=== PATIENT | female | born 1965 | race Caucasian/White ===

== ENCOUNTER 2017-05-16 19:11 | Emergency (ER) | payer BC ==
[2017-05-16 19:27] VITALS: BP 111/61
[2017-05-16] MEDS ORDERED: SUCRALFATE 1 GM TABLET PO ONE (19:41)
[2017-05-16] MEDS ORDERED: FAMOTIDINE 20 MG TABLET PO ONE (19:41)
[2017-05-16] MEDS ORDERED: ONDANSETRON 4 MG TAB.RAPDIS PO ONE (19:42)
--- NOTE | 2017-05-16 19:45 | ER Document Report ---
ED General - General Chief Complaint: Chest Pain Stated Complaint: CHEST PAIN Time Seen by Provider: 05/16/17 19:34 Notes: Patient is a 51-year-old female that comes emergency department with chief complaint of pain that started about 30 minutes prior to arrival while she was cooking in the kitchen (she points to her epigastric area close (, she states it felt a little better after belching but she is still very uncomfortable. She denies nausea or vomiting. She denies shortness of breath, trauma, cough, fever. Past medical history of gastric bypass, she states that for arthritis she takes Percocet, gabapentin, and BC powder daily, she took both BC powder and to 81 mg aspirins prior to arrival. She has had a cholecystectomy, has an IUD in place, she also takes risperidone. She denies smoking, alcohol, personal or family history of ND. TRAVEL OUTSIDE OF THE [place] IN LAST 30 DAYS: No - Related Data Allergies/Adverse Reactions: No Known Allergies Allergy (Verified 08/07/16 17:41) Past Medical History - General Information source: Patient - Social History Smoking Status: Never Smoker Chew tobacco use (# tins/day): No Frequency of alcohol use: None Drug Abuse: None Lives with: Family Family History: CAD, Hypertension - Past Medical History Cardiac Medical History: Reports: Hx Hypertension Pulmonary Medical History: Reports: Hx Asthma - Patient has bronchitis with reactive airways disease, Hx Bronchitis - w/ RAD Denies: Hx Tuberculosis Neurological Medical History: Denies: Hx Seizures Musculoskeltal Medical History: Reports Hx Arthritis - bilateral knees Psychiatric Medical History: Reports: Hx Bipolar Disorder, Hx Depression Past Surgical History: Reports: Hx Abdominal Surgery - gastric bypass, Hx Cholecystectomy, Hx Gastric Bypass Surgery - 1994, Hx Tonsillectomy, Hx Tubal Ligation. Denies: Hx Hysterectomy - Immunizations Immunizations up to date: Yes Hx Diphtheria, Pertussis, Tetanus Vaccination: Yes Review of Systems - Review of Systems Constitutional: No symptoms reported EENT: No symptoms reported Cardiovascular: See HPI Respiratory: No symptoms reported Gastrointestinal: See HPI Genitourinary: No symptoms reported Female Genitourinary: No symptoms reported Musculoskeletal: No symptoms reported Skin: No symptoms reported Hematologic/Lymphatic: No symptoms reported Neurological/Psychological: No symptoms reported Physical Exam - Vital signs Vitals: Temp Pulse Resp BP Pulse Ox 98 F 82 16 111/61 95 05/16/17 19:15 07/23/17 19:15 05/16/17 19:15 05/16/17 19:15 05/16/17 19:15 Interpretation: Normal - General General appearance: Appears well, Alert In distress: None - HEENT Head: Normocephalic, Atraumatic Eyes: Normal Conjunctiva: Normal Extraocular movements intact: Yes Eyelashes: Normal Pupils: PERRL Nasal: Normal Mouth/Lips: Normal Mucous membranes: Normal Pharynx: Normal Neck: Normal - Respiratory Respiratory status: No respiratory distress Chest status: Nontender Breath sounds: Normal. No: Decreased air movement, Wheezing Chest palpation: Normal - Cardiovascular Rhythm: Regular. No: Tachycardia Heart sounds: Normal auscultation, S1 appreciated, S2 appreciated Murmur: No - Abdominal Inspection: Normal Distension: No distension Bowel sounds: Normal Tenderness: Nontender. No: Tender, Florian's sign Organomegaly: No organomegaly - Back Back: Normal, Nontender. No: Tender, CVA tenderness - Extremities General upper extremity: Normal inspection, Nontender, Normal color, Normal ROM , Normal temperature General lower extremity: Normal inspection, Nontender, Normal color, Normal ROM , Normal temperature, Normal weight bearing. No: Missy's sign - Neurological Neuro grossly intact: Yes Cognition: Normal Orientation: AAOx4 Bruning Coma Scale Eye Opening: Spontaneous Александр Coma Scale Verbal: Oriented Александр Coma Scale Motor: Obeys Commands Александр Coma Scale Total: 15 Speech: Normal Motor strength normal: LUE, RUE, LLE, RLE Sensory: Normal - Psychological Associated symptoms: Normal affect, Normal mood - Skin Skin Temperature: Warm Skin Moisture: Dry Skin Color: Normal Course - Re-evaluation Re-evalutation: Patient well-appearing, EKG shows sinus rhythm with no T-wave or ST segment changes in consecutive leads, no ischemic abnormalities noted. Chest x-ray unremarkable, CBC, chemistry, lipase unremarkable, cardiac enzymes negative. On examination patient does have epigastric tenderness initially and is complaining of epigastric pain. Patient has already had a cholecystectomy, has had bypass surgery, takes daily PC powders. Clinical picture is consistent with gastritis/esophagitis. 05/16/17 21:00 Patient symptom free after Pepcid, Carafate, Zofran. She states she feels great and she is ready to leave. I discussed repeat cardiac enzyme to complete workup, she declined second cardiac enzyme. Because of clinical picture of gastrointestinal source I feel that this is appropriate. She urinated and this was not collected and I still do not have a test. Patient has an IUD in place, has last LMP within 2 weeks, declines staying for this as well. Patient states she feels great, she is ready to leave, she will follow up with primary care, and she understand return precautions which we discussed. Family also voices agreement and satisfaction. - Vital Signs Vital signs: Temp Pulse Resp BP Pulse Ox 98 F 82 16 111/61 95 05/16/17 19:15 05/16/17 19:15 05/16/17 19:15 05/16/17 19:15 05/16/17 19:15 - Laboratory Result Diagrams: 05/16/17 19:20 05/16/17 19:20 Laboratory results interpreted by me: 05/16/17 05/16/17 19:20 19:20 Hgb 11.9 L Hct 35.6 L RDW 16.9 H Chloride 109 H Direct Bilirubin 0.5 H Albumin 3.3 L Discharge - Discharge Clinical Impression: Epigastric pain Condition: Stable Disposition: HOME, SELF-CARE Additional Instructions: Your workup at this time does not show any concerning abnormalities Your examination and symptoms are consistent with esophageal/gastric source of your symptoms, please take the medications as prescribed, stop the BC powder, avoid NSAIDs such as ibuprofen, naproxen, aspirin. You can take Tylenol based medications, your pain medications, Tums, Rolaids if needed. Follow-up with your primary care for additional management. In the emergency department immediately if you worsen including vomiting blood, black stools, severe pain, or any other new or concerning symptoms. Prescriptions: Omeprazole 40 mg PO DAILY #60 capsule. Sucralfate [Carafate 1 gm Tablet] 1 gm PO QID #40 tablet Referrals: CARLIE YOUNGBLOOD NP [Primary Care Provider] - Follow up as needed
[2017-05-16 19:52] LABS: ABSOLUTE BASOPHILS # (AUTO) 0.1 10^3/uL (0.0-0.2); ABSOLUTE EOSINOPHILS # (AUTO) 0.3 10^3/uL (0.0-0.6); ABSOLUTE MONOCYTES (AUTO) 0.6 10^3/uL (0.1-1.4); ABSOLUTE NEUT (AUTO) 3.4 10^3/uL (1.7-8.2); EOSINOPHILS % (AUTO) 5.7 % (0-6); HEMATOCRIT 35.6 % (36.0-47.0); HEMOGLOBIN 11.9 g/dL (12.0-15.5); HGB HCT DIFFERENCE 0.1; LYMPHOCYTES % (AUTO) 18.2 % (13-45); MEAN CORPUSCULAR HEMOGLOBIN 28.4 pg (27.0-33.4); MEAN CORPUSCULAR HGB CONC 33.4 g/dL (32.0-36.0); MEAN CORPUSCULAR VOLUME 85 fl (80-97); MONOCYTES % (AUTO) 11.3 % (3-13); RED BLOOD COUNT 4.19 10^6/uL (3.72-5.28); RED CELL DISTRIBUTION WIDTH 16.9 % (11.5-14.0); SEGMENTED NEUTROPHILS % (AUTO) 63.8 % (42-78); WHITE BLOOD COUNT 5.4 10^3/uL (4.0-10.5)
[2017-05-16 20:01] LABS: ALANINE AMINOTRANSFERASE 21 U/L (9-52); ALBUMIN 3.3 g/dL (3.5-5.0); ALKALINE PHOSPHATASE 103 U/L (38-126); ANION GAP 9 (5-19); ASPARTATE AMINO TRANSFERASE 24 U/L (14-36); BILIRUBIN,DIRECT 0.5 mg/dL (0.0-0.4); BILIRUBIN,TOTAL 0.7 mg/dL (0.2-1.3); BLOOD UREA NITROGEN 15 mg/dL (7-20); CALCIUM 8.9 mg/dL (8.4-10.2); CARBON DIOXIDE 22 mmol/L (22-30); CHLORIDE 109 mmol/L (98-107); CREATINE KINASE 62 U/L (30-135); CREATININE RESULT 0.92 mg/dL (0.52-1.25); GLUCOSE 85 mg/dL (75-110); LIPASE 261.7 U/L (23-300); POTASSIUM 4.5 mmol/L (3.6-5.0); SODIUM 140.1 mmol/L (137-145); TOTAL PROTEIN 6.4 g/dL (6.3-8.2)
[2017-05-16 20:18] LABS: CREATINE KINASE MB 0.24 ng/mL (<4.55); TROPONIN I < 0.012 ng/mL
--- NOTE | 2017-05-16 20:22 | RADIOLOGY REPORT (SQ) ---
EXAM DESCRIPTION: CHEST SINGLE VIEW COMPLETED DATE/TIME: 05/16/2017 8:12 pm REASON FOR STUDY: chest pain COMPARISON: July 2016 EXAM PARAMETERS: NUMBER OF VIEWS: One view. TECHNIQUE: Single frontal radiographic view of the chest acquired. RADIATION DOSE: NA LIMITATIONS: None. FINDINGS: LUNGS AND PLEURA: No opacities, masses or pneumothorax. No pleural effusion. MEDIASTINUM AND HILAR STRUCTURES: No masses. Contour normal. HEART AND VASCULAR STRUCTURES: Heart normal in size. Normal vasculature. BONES: No acute findings. HARDWARE: None in the chest. OTHER: No other significant finding. IMPRESSION: NO ACUTE RADIOGRAPHIC FINDING IN THE CHEST. TECHNICAL DOCUMENTATION: JOB ID: [id number]
--- NOTE | 2017-05-17 13:59 | EKG REPORT ---
SEVERITY:- NORMAL ECG - SINUS RHYTHM : Confirmed by: Tracy Leggett MD 17-May-2017 13:58:45
== END 2017-05-16 21:20 | disposition home or self-care (01) ==
LOC: ER 19:11
DX: R10.13 Epigastric pain (principal); R07.9 Chest pain, unspecified; I10 Essential (primary) hypertension; Z97.5 Presence of (intrauterine) contraceptive device; Z90.49 Acquired absence of other specified parts of digestive tract; Z98.84 Bariatric surgery status
CPT/HCPCS: 93005; 99285; 36415; 82553; 82550; 83690; 85025; 80053; 84484; 71010; 93010; S0119

== ENCOUNTER → 2017-05-24 | Outpatient (CLI) | payer BC ==
--- NOTE | 2017-05-24 17:32 | WOMENS IMAGING REPORT ---
EXAM DESCRIPTION: BILAT SCREENING MAMMO W/CAD COMPLETED DATE/TIME: 05/24/2017 3:06 pm REASON FOR STUDY: ROUTINE SCREENING; Z12.31 Z12.31 ENCNTR SCREEN MAMMOGRAM FOR MALIGNANT NEOPLASM O F AHMET COMPARISON: 05/19/2016 and 04/17/2015. TECHNIQUE: Standard craniocaudal and mediolateral oblique views of each breast recorded using digita l acquisition. LIMITATIONS: None. FINDINGS: Findings present which are benign by mammographic criteria. No suspicious masses, calcifi cations or architectural distortion. Pertinent benign findings: Stable benign calcifications. Read with the assistance of CAD. .[facility] - R2 Cenova Version 1.3 .[facility] - R2 Cenova Version 1.3 .[facility] - R2 Cenova Version 2.4 .[facility] - R2 Cenova Version 2.4 .[facility] - R2 Lens Cementer Version 9.2 Benign mammographic findings may include one or more of the following: Smooth masses, popcorn/rim/co arse calcifications, asymmetries, post-procedure changes, and lesions with long-standing stability. IMPRESSION: BENIGN MAMMOGRAPHIC FINDINGS. BIRADS 2 BREAST DENSITY: a. The breasts are almost entirely fatty. BIRAD: 2 BENIGN FINDING(S) RECOMMENDATION: ROUTINE SCREENING COMMENT: The patient has been notified of the results by letter per SA requirements. Additional no tification policies are in place for contacting patient with suspicious or incomplete findings. Quality ID #[id number]: The [employer] recommends an annual screening mammogram for women aged 40 years or over. This facility utilizes a reminder system to ensure that all patients receive reminder letters, and/or direct phone calls for appointments. This includes reminders for routine scr eening mammograms, diagnostic mammograms, or other Breast Imaging Interventions when appropriate. Th is patient will be placed in the appropriate reminder system. The [employer] (ACR) has developed recommendations for screening MRI of the breast s in certain patient populations, to be used in conjunction with mammography. Breast MRI surveillanc e may be appropriate for women with more than 20% lifetime risk of developing breast cancer as deter mined by genetic testing, significant family history of the disease, or history of mantle radiation f or Hodgkins Disease. ACR Practice Guidelines 2008. TECHNICAL DOCUMENTATION: FINDING NUMBER: (1) ASSESSMENT: (1) JOB ID: [id number]- All Rights Reserved
== END ==
LOC: WI 14:45
PROVIDERS: ATTEND Nurse Practitioner Acute Care
DX: Z12.31 Encounter for screening mammogram for malignant neoplasm of breast (principal)
CPT/HCPCS: 77067; G0202

== ENCOUNTER 2017-08-23 05:16 | Emergency (ER) | payer BC ==
--- NOTE | 2017-08-23 05:42 | ER Document Report ---
ED Medical Screen (RME) - General Chief Complaint: GI Bleeding Stated Complaint: RECTAL BLEEDING Mode of Arrival: Ambulatory Information source: Patient Notes: Patient presents stating that she noticed bright red bleeding after having a bowel movement yesterday around 4 PM. Patient states that when going to the bathroom to urinate she would wipe in the rectal area and noticed bleeding. Patient does complain of some mild rectal tenderness. Patient does report a previous history of hemorrhoids. Patient does state that she has a history of anemia following gastric bypass surgery. Patient does take BC powders twice a day to treat arthritic pain. Patient denies any abdominal tenderness, fever, nausea, or vomiting. hx: Anemia, bipolar, arthritis, gastric bypass, tubal ligation, cholecystectomy , tonsillectomy TRAVEL OUTSIDE OF THE [place] IN LAST 30 DAYS: No - Related Data Allergies/Adverse Reactions: No Known Allergies Allergy (Verified 08/07/16 17:41) Past Medical History - Past Medical History Cardiac Medical History: Reports: Hx Hypertension Pulmonary Medical History: Reports: Hx Asthma - Patient has bronchitis with reactive airways disease, Hx Bronchitis - w/ RAD Denies: Hx Tuberculosis Neurological Medical History: Denies: Hx Seizures Renal/ Medical History: Denies: Hx Peritoneal Dialysis Musculoskeltal Medical History: Reports Hx Arthritis - bilateral knees Psychiatric Medical History: Reports: Hx Bipolar Disorder, Hx Depression Past Surgical History: Reports: Hx Abdominal Surgery - gastric bypass, Hx Cholecystectomy, Hx Gastric Bypass Surgery - 1994, Hx Tonsillectomy, Hx Tubal Ligation. Denies: Hx Hysterectomy - Immunizations Immunizations up to date: Yes Hx Diphtheria, Pertussis, Tetanus Vaccination: Yes Physical Exam - Vital signs Vitals: Temp Pulse Resp BP Pulse Ox 98.5 F 82 18 123/79 96 08/23/17 05:23 08/23/17 05:23 08/23/17 05:23 08/23/17 05:23 08/23/17 05:23 - Rectal Tenderness: Yes Stool: See lab result Hemorrhoids: External Course - Vital Signs Vital signs: Temp Pulse Resp BP Pulse Ox 98.5 F 82 18 123/79 96 08/23/17 05:23 08/23/17 05:23 08/23/17 05:23 08/23/17 05:23 08/23/17 05:23
[2017-08-23 06:01] LABS: ABSOLUTE BASOPHILS # (AUTO) 0.1 10^3/uL (0.0-0.2); ABSOLUTE EOSINOPHILS # (AUTO) 0.3 10^3/uL (0.0-0.6); ABSOLUTE LYMPHOCYTES (AUTO) 1.1 10^3/uL (0.5-4.7); ABSOLUTE MONOCYTES (AUTO) 0.7 10^3/uL (0.1-1.4); ABSOLUTE NEUT (AUTO) 3.5 10^3/uL (1.7-8.2); EOSINOPHILS % (AUTO) 5.1 % (0-6); HEMATOCRIT 35.9 % (36.0-47.0); HEMOGLOBIN 11.7 g/dL (12.0-15.5); HGB HCT DIFFERENCE -0.8; MEAN CORPUSCULAR HGB CONC 32.7 g/dL (32.0-36.0); MEAN CORPUSCULAR VOLUME 86 fl (80-97); MONOCYTES % (AUTO) 11.7 % (3-13); RED CELL DISTRIBUTION WIDTH 14.4 % (11.5-14.0); SEGMENTED NEUTROPHILS % (AUTO) 63.2 % (42-78); WHITE BLOOD COUNT 5.6 10^3/uL (4.0-10.5)
--- NOTE | 2017-08-23 06:09 | ER Document Report ---
HPI - HPI Patient complains to provider of: Rectal bleeding Onset: Yesterday Onset/Duration: Sudden Quality of pain: Achy Pain Level: 1 Context: Patient presents stating that she noticed bright red bleeding after having a bowel movement yesterday around 4 PM. Patient states that when going to the bathroom to urinate she would wipe in the rectal area and noticed bleeding. Patient does complain of some mild rectal tenderness. Patient does report a previous history of hemorrhoids. Patient does state that she has a history of anemia following gastric bypass surgery. Patient does take BC powders twice a day to treat arthritic pain. Patient denies any abdominal tenderness, fever, nausea, or vomiting. Associated Symptoms: Other - Rectal bleeding. denies: Fever, Nausea, Vomiting Exacerbated by: Denies Relieved by: Denies Similar symptoms previously: No Recently seen / treated by doctor: No - ROS ROS below otherwise negative: Yes Systems Reviewed and Negative: Yes All other systems reviewed and negative - CONSTITUTIONAL Constitutional: DENIES: Fever, Chills - NEURO Neurology: DENIES: Weakness - CARDIOVASCULAR Cardiovascular: DENIES: Chest pain - RESPIRATORY Respiratory: DENIES: Trouble Breathing, Coughing - GASTROINTESTINAL Gastrointestinal: REPORTS: Black / Bloody Stools. DENIES: Abdominal Pain, Nausea, Patient vomiting, Constipation - URINARY Urinary: DENIES: Dysuria - REPRODUCTIVE Reproductive: DENIES: : - MUSCULOSKELETAL Musculoskeletal: DENIES: Back Pain - DERM Skin Color: Normal Skin Problems: None Past Medical History - General Information source: Patient - Social History Smoking Status: Never Smoker Lives with: Family Family History: CAD, Hypertension Patient has suicidal ideation: No Patient has homicidal ideation: No - Past Medical History Cardiac Medical History: Reports: Other - Anemia Pulmonary Medical History: Reports: Hx Asthma - Patient has bronchitis with reactive airways disease, Hx Bronchitis - w/ RAD Denies: Hx Tuberculosis Neurological Medical History: Denies: Hx Seizures Renal/ Medical History: Denies: Hx Peritoneal Dialysis Musculoskeltal Medical History: Reports Hx Arthritis - bilateral knees Psychiatric Medical History: Reports: Hx Bipolar Disorder, Hx Depression Past Surgical History: Reports: Hx Abdominal Surgery - gastric bypass, Hx Cholecystectomy, Hx Gastric Bypass Surgery - 1994, Hx Tonsillectomy, Hx Tubal Ligation. Denies: Hx Hysterectomy - Immunizations Immunizations up to date: Yes Hx Diphtheria, Pertussis, Tetanus Vaccination: Yes Vertical Provider Document - CONSTITUTIONAL Agree With Documented VS: Yes Exam Limitations: No Limitations General Appearance: WD/WN, No Apparent Distress - INFECTION CONTROL TRAVEL OUTSIDE OF THE [place] IN LAST 30 DAYS: No - HEENT HEENT: Atraumatic, Normocephalic - NECK Neck: Normal Inspection, Supple - RESPIRATORY Respiratory: Breath Sounds Normal, No Respiratory Distress O2 Sat by Pulse Oximetry: 96 - CARDIOVASCULAR Cardiovascular: Regular Rate, Regular Rhythm, No Murmur - GI/ABDOMEN Gastrointestinal: Abdomen Soft, Abdomen Non-Tender, No Organomegaly, Normal Bowel Sounds Notes: Patient with small external hemorrhoid that is draining small amount of blood with palpation. No obvious blood noted in stool after digital rectal exam. - BACK Back: Normal Inspection - MUSCULOSKELETAL/EXTREMETIES Musculoskeletal/Extremeties: BETSEY MAST - NEURO Level of Consciousness: Awake, Alert, Appropriate Motor/Sensory: No Motor Deficit - DERM Integumentary: Warm, Dry Course - Re-evaluation Re-evalutation: 08/23/17 06:08 Patient with draining external hemorrhoid that is small. No concern for thrombosed hemorrhoid, no concern for perirectal abscess. 08/23/17 06:[address] Holloway who agrees with plan of care - Vital Signs Vital signs: Temp Pulse Resp BP Pulse Ox 98.5 F 82 18 123/79 96 08/23/17 05:23 08/23/17 05:23 08/23/17 05:23 08/23/17 05:23 08/23/17 05:23 - Laboratory Result Diagrams: 08/23/17 05:52 08/23/17 05:52 Laboratory results interpreted by me: 08/23/17 05:52 Hgb 11.7 L Hct 35.9 L RDW 14.4 H 08/23/17 06:21 Labs- Entire Visit 08/23/17 08/23/17 08/23/17 05:38 05:52 05:52 WBC 5.6 RBC 4.20 Hgb 11.7 L Hct 35.9 L MCV 86 MCH 28.0 MCHC 32.7 RDW 14.4 H Plt Count 213 Seg Neutrophils % 63.2 Lymphocytes % 19.0 Monocytes % 11.7 Eosinophils % 5.1 Basophils % 1.0 Absolute Neutrophils 3.5 Absolute Lymphocytes 1.1 Absolute Monocytes 0.7 Absolute Eosinophils 0.3 Absolute Basophils 0.1 PT 13.2 INR 0.94 APTT 30.3 Sodium Potassium Chloride Carbon Dioxide Anion Gap BUN Creatinine Est GFR ( Amer) Est GFR (Non-Af Amer) Glucose Calcium Total Bilirubin Direct Bilirubin Indirect Bilirubin Neonat Total Bilirubin AST ALT Alkaline Phosphatase Total Protein Albumin Stool Occult Blood NEGATIVE 08/23/17 05:52 WBC RBC Hgb Hct MCV MCH MCHC RDW Plt Count Seg Neutrophils % Lymphocytes % Monocytes % Eosinophils % Basophils % Absolute Neutrophils Absolute Lymphocytes Absolute Monocytes Absolute Eosinophils Absolute Basophils PT INR APTT Sodium 142.7 Potassium 3.9 Chloride 108 H Carbon Dioxide 23 Anion Gap 12 BUN 17 Creatinine 0.94 Est GFR ( Amer) > 60 Est GFR (Non-Af Amer) > 60 Glucose 89 Calcium 9.0 Total Bilirubin 0.6 Direct Bilirubin 0.3 Indirect Bilirubin Not Reportable Neonat Total Bilirubin Not Reportable AST 24 ALT 34 Alkaline Phosphatase 123 Total Protein 6.2 L Albumin 3.4 L Stool Occult Blood Discharge - Discharge Clinical Impression: External hemorrhoid Condition: Stable Disposition: HOME, SELF-CARE Instructions: HC Hemorrhoid Cream ([facility]), Hemorrhoids ([facility]) Additional Instructions: Return immediately for any new or worsening symptoms Followup with your primary care provider, call tomorrow to make a followup appointment You should not be taking BC powders regularly, consult with your primary doctor regarding arthritis pain management Follow-up with a piano regulator inspector for any continued problems involving rectal hemorrhoid you may use tucks pads over the counter as directed Prescriptions: Hydrocortisone Acetate [Anusol Hc 25 Mg Supp.Rect] 25 mg ID BID PRN #[id number] supp.rect PRN Reason: Referrals: CARLIE YOUNGBLOOD NP [Primary Care Provider] - Follow up as needed DANYA TELLO MD [ACTIVE STAFF] - Follow up as needed PORSCHE MARTINEZ MD [ACTIVE STAFF] - Follow up as needed
[2017-08-23 06:10] LABS: PROTHROMBIN TIME 13.2 SEC (11.4-15.4)
[2017-08-23 06:11] LABS: PARTIAL THROMBOPLASTIN TIME 30.3 SEC (23.5-35.8)
[2017-08-23 06:19] LABS: ALANINE AMINOTRANSFERASE 34 U/L (9-52); ALBUMIN 3.4 g/dL (3.5-5.0); ALKALINE PHOSPHATASE 123 U/L (38-126); ANION GAP 12 (5-19); ASPARTATE AMINO TRANSFERASE 24 U/L (14-36); BILIRUBIN,DIRECT 0.3 mg/dL (0.0-0.4); BILIRUBIN,TOTAL 0.6 mg/dL (0.2-1.3); BLOOD UREA NITROGEN 17 mg/dL (7-20); CARBON DIOXIDE 23 mmol/L (22-30); CHLORIDE 108 mmol/L (98-107); CREATININE RESULT 0.94 mg/dL (0.52-1.25); GLUCOSE 89 mg/dL (75-110); POTASSIUM 3.9 mmol/L (3.6-5.0); SODIUM 142.7 mmol/L (137-145); TOTAL PROTEIN 6.2 g/dL (6.3-8.2)
[2017-08-23 06:37] VITALS: BP 111/66
== END 2017-08-23 06:35 | disposition home or self-care (01) ==
LOC: ER 05:16
DX: K64.4 Residual hemorrhoidal skin tags (principal); Z98.84 Bariatric surgery status; Z90.49 Acquired absence of other specified parts of digestive tract; Z98.51 Tubal ligation status
CPT/HCPCS: 36415; 80053; 82272; 85025; 85610; 85730; 99282

== ENCOUNTER 2017-09-10 21:21 | Emergency (ER) | payer BC, OTHER ==
--- NOTE | 2017-09-10 23:37 | ER Document Report ---
HPI - HPI Patient complains to provider of: Right knee pain Onset: Yesterday Onset/Duration: Gradual Quality of pain: Achy Pain Level: 5 Context: Patient complains of chronic arthritis of right knee. Patient states that her knees been giving out on her yesterday. Patient states she felt like it dislocates and then goes back into proper alignment. Patient states she has been seen by orthopedics for this and has been told that she will need a knee replacement but they are waiting until she is at least 57 years old. Patient denies any fall or new injury. Associated Symptoms: Other - Right knee pain Exacerbated by: Standing, Movement, Walking Relieved by: Denies Similar symptoms previously: Yes Recently seen / treated by doctor: No - ROS ROS below otherwise negative: Yes Systems Reviewed and Negative: Yes All other systems reviewed and negative - NEURO Neurology: DENIES: Weakness - REPRODUCTIVE Reproductive: DENIES: : - MUSCULOSKELETAL Musculoskeletal: REPORTS: Extremity pain, Swelling - DERM Skin Color: Normal Skin Problems: None Past Medical History - General Information source: Patient - Social History Smoking Status: Never Smoker Frequency of alcohol use: None Drug Abuse: None Occupation: [employer] Lives with: Family Family History: CAD, Hypertension - Past Medical History Cardiac Medical History: Reports: Hx Hypertension Pulmonary Medical History: Reports: Hx Asthma - Patient has bronchitis with reactive airways disease, Hx Bronchitis - w/ RAD Denies: Hx Tuberculosis Neurological Medical History: Denies: Hx Seizures Renal/ Medical History: Denies: Hx Peritoneal Dialysis Musculoskeltal Medical History: Reports Hx Arthritis - bilateral knees Psychiatric Medical History: Reports: Hx Bipolar Disorder, Hx Depression Past Surgical History: Reports: Hx Abdominal Surgery - gastric bypass, Hx Cholecystectomy, Hx Gastric Bypass Surgery - 1994, Hx Tonsillectomy, Hx Tubal Ligation. Denies: Hx Hysterectomy - Immunizations Immunizations up to date: Yes Hx Diphtheria, Pertussis, Tetanus Vaccination: Yes Vertical Provider Document - CONSTITUTIONAL Agree With Documented VS: Yes Exam Limitations: No Limitations General Appearance: WD/WN, No Apparent Distress, Obese - morbidly - INFECTION CONTROL TRAVEL OUTSIDE OF THE [place] IN LAST 30 DAYS: No - HEENT HEENT: Atraumatic - NECK Neck: Normal Inspection - RESPIRATORY Respiratory: No Respiratory Distress O2 Sat by Pulse Oximetry: 97 - CARDIOVASCULAR Pulses: Normal: Dorsalis pedis - BACK Back: Normal Inspection - MUSCULOSKELETAL/EXTREMETIES Musculoskeletal/Extremeties: MAEW, Tender - Right knee joint tenderness to medial compartment, no effusion, no laxity with varus or valgus maneuvers. No concern for dislocation - NEURO Level of Consciousness: Awake, Alert, Appropriate Motor/Sensory: No Motor Deficit - DERM Integumentary: Warm, Dry, No Rash Course - Vital Signs Vital signs: Temp Pulse Resp BP Pulse Ox 97.4 F 95 16 109/72 97 09/10/17 21:34 09/10/17 21:34 09/10/17 21:34 09/10/17 21:34 09/10/17 21:34 Procedures - Immobilization Right Knee Pre-Proc Neuro Vasc Exam: Normal Immobilizer type: Knee immobilizer Performed by: PCT Post-Proc Neuro Vasc Exam: Normal Alignment checked and good: Yes Discharge - Discharge Clinical Impression: Hx of chronic arthritis Right knee pain Qualifiers: Chronicity: unspecified Qualified Code(s): M25.561 - Pain in right knee Condition: Stable Disposition: HOME, SELF-CARE Instructions: Arthritis ([facility]), Use of Crutches ([facility]), Ice & Elevation ([facility]), Sprained Knee ([facility]) Additional Instructions: Return immediately for any new or worsening symptoms Followup with your primary care provider, call tomorrow to make a followup appointment Follow-up with orthopedic doctor for further evaluation, call Wednesday for an appointment Forms: Return to Work Referrals: CARLIE YOUNGBLOOD NP [Primary Care Provider] - Follow up as needed [facility] [Provider Group] - Follow up as needed
[2017-09-10 23:48] VITALS: BP 117/76
== END 2017-09-11 00:02 | disposition home or self-care (01) ==
LOC: ER 21:21
DX: M17.9 Osteoarthritis of knee, unspecified (principal); M25.561 Pain in right knee
CPT/HCPCS: 99283; L1830

== ENCOUNTER 2018-06-14 04:12 | Observation (INO) | payer BC ==
--- NOTE | 2018-06-14 04:41 | ER Document Report ---
Doctor's Note Notes: 06/14/18 04:40 I performed a quick triage evaluation the patient. Patient is a 52-year-old female presents with complaint difficulty breathing for 2 3 days. She says it can happen when she is up and moving or sitting down. She also has low bit chest pressure so she with. She has no history of coronary disease. Only recent medication changes is that her oxybutynin was increased 3 weeks ago. Also she was placed on gabapentin for her knee pain. No fevers. No vomiting or diarrhea. No abdominal pain. She does have chronic edema in her legs. She is not on any type of water pill or diuretic. On exam her lung scruggs are clear. She is in no distress. She otherwise looks well. I have ordered EKG and blood work as well as chest x-ray.
[2018-06-14 05:19] LABS: ABSOLUTE EOSINOPHILS # (AUTO) 0.2 10^3/uL (0.0-0.6); ABSOLUTE LYMPHOCYTES (AUTO) 0.7 10^3/uL (0.5-4.7); ABSOLUTE MONOCYTES (AUTO) 0.6 10^3/uL (0.1-1.4); ABSOLUTE NEUT (AUTO) 2.5 10^3/uL (1.7-8.2); BASOPHILS % (AUTO) 0.9 % (0-2); EOSINOPHILS % (AUTO) 4.3 % (0-6); HEMATOCRIT 37.7 % (36.0-47.0); HEMOGLOBIN 12.4 g/dL (12.0-15.5); LYMPHOCYTES % (AUTO) 18.3 % (13-45); MEAN CORPUSCULAR HEMOGLOBIN 29.6 pg (27.0-33.4); MEAN CORPUSCULAR HGB CONC 32.8 g/dL (32.0-36.0); MEAN CORPUSCULAR VOLUME 90 fl (80-97); MONOCYTES % (AUTO) 13.7 % (3-13); PLATELET COUNT 152 10^3/uL (150-450); RED BLOOD COUNT 4.17 10^6/uL (3.72-5.28); RED CELL DISTRIBUTION WIDTH 14.8 % (11.5-14.0); SEGMENTED NEUTROPHILS % (AUTO) 62.8 % (42-78); TOTAL CELLS COUNTED % (AUTO) 100 %
[2018-06-14 05:43] LABS: ALANINE AMINOTRANSFERASE 27 U/L (9-52); ALBUMIN 3.2 g/dL (3.5-5.0); ALKALINE PHOSPHATASE 85 U/L (38-126); ANION GAP 9 (5-19); ASPARTATE AMINO TRANSFERASE 32 U/L (14-36); BILIRUBIN,DIRECT 0.3 mg/dL (0.0-0.4); BILIRUBIN,TOTAL 0.4 mg/dL (0.2-1.3); BLOOD UREA NITROGEN 20 mg/dL (7-20); CALCIUM 8.5 mg/dL (8.4-10.2); CARBON DIOXIDE 25 mmol/L (22-30); CHLORIDE 110 mmol/L (98-107); GLUCOSE 85 mg/dL (75-110); POTASSIUM 3.9 mmol/L (3.6-5.0); TOTAL PROTEIN 5.8 g/dL (6.3-8.2)
[2018-06-14 05:52] LABS: NT PRO BNP 152 pg/mL (5-900)
[2018-06-14 05:53] LABS: TROPONIN I < 0.012 ng/mL
--- NOTE | 2018-06-14 06:06 | RADIOLOGY REPORT (SQ) ---
EXAM DESCRIPTION: XR CHEST 2 VIEWS COMPLETED DATE/TME: 06/14/2018 04:41 CLINICAL HISTORY: dyspnea COMPARISON: 05/16/2017 FINDINGS: Frontal and lateral views of the chest. The cardiomediastinal silhouette has normal size and contour. No lobar consolidation, pneumothorax, or pleural effusion. No displaced rib fractures identified. Upper abdominal soft tissues are unremarkable. IMPRESSION: 1. No acute pneumonic process.
--- NOTE | 2018-06-14 07:10 | ER Document Report ---
ED General - General Mode of Arrival: Ambulatory Information source: Patient TRAVEL OUTSIDE OF THE [place] IN LAST 30 DAYS: No <SEGUNDO TURNER - Last Filed: 06/14/18 07:41> <AMADA HUIZAR - Last Filed: 06/14/18 07:51> - General Chief Complaint: Breathing Difficulty Stated Complaint: BREATHING DIFFICULTY Time Seen by Provider: 06/14/18 04:40 Notes: Patient is a 52 year old female with osteoarthritis, overactive bladder, bipolar disorder, depression presents to the emergency department complaining of difficulty breathing onset yesterday. 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 She states she later laid down and the pain did not go away. Patient states the pain is exacerbated with deep breathing and also complains of diaphoresis and nausea. Patient denies coughs or a history of [place], cardiac catheterization, or a stress test. (SEGUNDO TURNER) - Related Data Allergies/Adverse Reactions: No Known Allergies Allergy (Verified 06/14/18 07:46) Past Medical History - General Information source: Patient - Social History Smoking Status: Never Smoker Cigarette use (# per day): No Chew tobacco use (# tins/day): No Smoking Education Provided: No Frequency of alcohol use: Rare Drug Abuse: None Family History: CAD, Hypertension Patient has suicidal ideation: No Patient has homicidal ideation: No Pulmonary Medical History: Reports: Hx Asthma - Patient has bronchitis with reactive airways disease, Hx Bronchitis - w/ RAD Musculoskeletal Medical History: Reports Hx Arthritis - bilateral knees Psychiatric Medical History: Reports: Hx Bipolar Disorder, Hx Depression Past Surgical History: Reports: Hx Abdominal Surgery - gastric bypass, Hx Cholecystectomy, Hx Gastric Bypass Surgery - 1994, Hx Tonsillectomy, Hx Tubal Ligation - Immunizations Immunizations up to date: Yes Hx Diphtheria, Pertussis, Tetanus Vaccination: Yes <SEGUNDO TURNER - Last Filed: 06/14/18 07:41> Review of Systems - Review of Systems Constitutional: See HPI, Diaphoresis EENT: No symptoms reported Cardiovascular: See HPI, Chest pain Respiratory: See HPI Gastrointestinal: See HPI, Nausea Genitourinary: No symptoms reported Female Genitourinary: No symptoms reported Musculoskeletal: No symptoms reported Skin: No symptoms reported Hematologic/Lymphatic: No symptoms reported Neurological/Psychological: No symptoms reported -: Yes All other systems reviewed and negative <SEGUNDO TURNER - Last Filed: 06/14/18 07:41> Physical Exam <JOHNNYQUEMARJORIE - Last Filed: 06/14/18 07:41> <AMADA HUIZAR - Last Filed: 06/14/18 07:51> - Notes Notes: GENERAL: Alert, interacts well. No acute distress. HEAD: Normocephalic, atraumatic. EYES: Pupils equal, round, and reactive to light. Extraocular movements intact. ENT: Oral mucosa moist, tongue midline. LUNGS: Clear to auscultation bilaterally, no wheezes, rales, or rhonchi. No respiratory distress. HEART: Regular rate and rhythm. No murmurs, gallops, or rubs. Does not complain of reproducible chest pain. ABDOMEN: Soft. Overweight. Complains of diffuse gas pain when palpating the abdomen, no focal tenderness, pain is shifting, no guarding, rigidity or rebound. Non-distended. Bowel sounds present in all 4 quadrants. EXTREMITIES: Moves all 4 extremities spontaneously. No edema, radial and dorsalis pedis pulses 2/4 bilaterally. No cyanosis. NEUROLOGICAL: Alert and oriented x3. Normal speech. PSYCH: Normal affect, normal mood. SKIN: Warm, dry, normal turgor. No rashes or lesions noted. (SEGUNDO TURNER) Course - Laboratory Result Diagrams: 06/14/18 05:10 06/14/18 05:10 <JOHNNYSEGUNDO - Last Filed: 06/14/18 07:41> - Laboratory Result Diagrams: 06/14/18 05:10 06/14/18 05:10 <AMADA HUIZAR - Last Filed: 06/14/18 07:51> - Re-evaluation Re-evalutation: 06/14/18 07:39 CBC unremarkable, CMP grossly unremarkable, initial troponin undetectable, chest x-ray negative, EKG has sinus bradycardia with some nonspecific T-wave flattening. Patient's heart score is 4. Discussed patient with Dr. Jessica from the hospitalist service who agrees to place patient on her service in observation status on the telemetry care unit. (AMADA HUIZAR) - Laboratory Laboratory results interpreted by me: 06/14/18 06/14/18 05:10 05:10 RDW 14.8 H Monocytes % 13.7 H Chloride 110 H Total Protein 5.8 L Albumin 3.2 L - EKG Interpretation by Me Additional EKG results interpreted by me: 06/14/18 07:39 EKG shows sinus bradycardia at a rate of 58, normal axis, normal intervals, no ST segment elevations or depressions, there is some nonspecific T-wave flattening in lead III, aVL per my interpretation. (AMADA HUIZAR) Discharge <SEGUNDO TURNER - Last Filed: 06/14/18 07:41> - Discharge [facility]mitting [facility] Ad[facility]: Telemetry <AMADA HUIZAR - Last Filed: 06/14/18 07:51> - Discharge Clinical Impression: Chest pain, rule out acute myocardial infarction Condition: Stable Disposition: ADMITTED OBSERVATION Scribe Attestation: 06/14/18 07:51 I personally performed the services described in the documentation, reviewed and edited the documentation which was dictated to the scribe in my presence, and it accurately records my words and actions. (AMADA HUIZAR) Scribe Documentation - Scribe Written by Scribe:: Hailey Pitt, 06/14/2018 07:25 acting as scribe for :: John <SEGUNDO TURNER - Last Filed: 06/14/18 07:41>
[2018-06-14] MEDS ORDERED: ASPIRIN 81 MG TABLET, CHEWABLE PO ONE (07:36)
[2018-06-14] MEDS ORDERED: ONDANSETRON HCL INJ/PF 4 MG/2 ML SDV IV PRN (08:06)
[2018-06-14] MEDS ORDERED: GLUCAGON,HUMAN RECOMB 1 MG INJ SUBCUT PRN (08:06)
[2018-06-14] MEDS ORDERED: DEXTROSE 40% GEL 15 GM TUBE PO PRN ×2 (08:06)
[2018-06-14] MEDS ORDERED: DEXTROSE 50%-WATER 25 GM/50 ML DISP.SYRIN IV PRN ×2 (08:06)
--- NOTE | 2018-06-14 08:51 | EKG REPORT ---
SEVERITY:- NORMAL ECG - SINUS RHYTHM : Confirmed by: Nik Ly 14-Jun-2018 08:51:02
[2018-06-14 08:55] LABS: CHOLESTEROL 138.08 mg/dL (0-200); TRIGLYCERIDES 71 mg/dL (<150)
[2018-06-14 09:06] LABS: DIRECT LDL 62 mg/dL (<100)
[2018-06-14] MEDS ORDERED: (PENDING PHARMACY ID) (Oxycodone Hcl/Acetaminophen [Endocet 10-325 Mg Tablet] 1 TAB) PO PRN (10:26)
[2018-06-14] MEDS ORDERED: DIPHENHYDRAMINE HCL 25 MG CAPSULE PO PRN (10:26)
[2018-06-14] MEDS: ENOXAPARIN SODIUM INJ 40 MG/0.4 ML DISP.SYRIN SUBCUT SCH (10:44)
[2018-06-14] MEDS ORDERED: OXYCODONE HCL IR 5 MG TABLET PO PRN (13:04)
[2018-06-14] MEDS: TIZANIDINE HCL 4 MG TABLET PO PRN ×2 (13:10→21:31)
[2018-06-14] MEDS: PREGABALIN 75 MG CAPSULE PO SCH ×2 (13:10→21:30)
[2018-06-14] MEDS: OXYCODONE-ACETAMINOPHEN 5-325 MG TABLET PO PRN ×2 (13:17→23:46)
[2018-06-14] MEDS: ACETAMINOPHEN 325 MG TABLET PO PRN (18:52)
--- NOTE | 2018-06-14 19:12 | PDOC H&P ---
History of Present Illness Admission Date/PCP: 06/14/18 07:53 Patient complains of: Chest pain right of sternum. Continuous for last 1 1/2 days. No palliative or provocative factors. Positive for associated shortness of breath and nausea. No diaphoresis. She refers to it as tightness and not pain. She states that it is 5/10 in severity. She states that it seems worse with lying down. It does not radiate. History of Present Illness: VALDO SANTANA is a 52 year old female Past Medical History Cardiac Medical History: Denies: Hypertension Pulmonary Medical History: Reports: Bronchitis - w/ RAD, Pneumonia Denies: Asthma, Tuberculosis Neurological Medical History: Denies: Seizures Musculoskeltal Medical History: Reports: Arthritis - bilateral knees Psychiatric Medical History: Reports: Bipolar Disorder, Depression Hematology: Reports: Anemia Past Surgical History Past Surgical History: Reports: Cholecystectomy, Gastric Bypass Surgery - 1994, Tonsillectomy, Tubal Ligation Denies: Hysterectomy Social History Smoking Status: Never Smoker Frequency of Alcohol Use: Occasional Hx Recreational Drug Use: No Drugs: None Hx Prescription Drug Abuse: No - Advance Directive Resuscitation Status: Full Code Family History Family History: CAD, Hypertension Parental Family History Reviewed: Yes Children Family History Reviewed: Yes Sibling(s) Family History Reviewed.: Yes Medication/Allergy Home Medications: Cholecalciferol (Vitamin D3) [Vitamin D3] 2,000 unit PO DAILY 06/14/18 Diphenhydramine HCl [Benadryl 25 mg Capsule] 25 mg PO HSP PRN 06/14/18 Escitalopram Oxalate [Lexapro] 20 mg PO DAILY 06/14/18 Ferrous Sulfate [Feosol 325 mg Tablet] 325 mg PO DAILY 06/14/18 Oxybutynin Chloride [Oxybutynin Chloride ER] 15 mg PO DAILY 06/14/18 Oxycodone HCl/Acetaminophen [Endocet 10-325 mg Tablet] 1 tab PO Q8HP PRN Pregabalin [Lyrica 75 mg Capsule] 75 mg PO Q8 06/14/18 Risperidone [Risperdal] 3 mg PO Q12 06/14/18 Tizanidine HCl [Zanaflex 4 mg Tablet] 4 mg PO Q8HP PRN 06/14/18 Allergies/Adverse Reactions: No Known Allergies Allergy (Verified 06/14/18 07:46) Review of Systems All systems: reviewed and no additional remarkable complaints except as stated Cardiovascular: PRESENT: other - Chest tightness Physical Exam Vital Signs: Temp Pulse Resp BP Pulse Ox 97.9 F 50 L 17 107/60 98 06/14/18 11:52 06/14/18 14:00 06/14/18 11:52 06/14/18 11:52 06/14/18 11:52 Intake & Output 06/13/18 06/14/18 06/15/18 06:59 06:59 06:59 Weight 139.4 kg General appearance: PRESENT: no acute distress, cooperative, morbidly obese Head exam: PRESENT: atraumatic, normocephalic Eye exam: PRESENT: EOMI, PERRLA, other - no scleral injection. ABSENT: scleral icterus Ear exam: ABSENT: bleeding, drainage Mouth exam: PRESENT: moist, neck supple, tongue midline. ABSENT: laceration Throat exam: ABSENT: post pharyngeal erythema, tonsillar exudate Neck exam: ABSENT: JVD, lymphadenopathy, thyromegaly Respiratory exam: PRESENT: other - No increased work of breathing.. ABSENT: accessory muscle use, chest wall tenderness, crackles, rhonchi, wheezes Cardiovascular exam: PRESENT: RRR. ABSENT: gallop, rubs, systolic murmur GI/Abdominal exam: PRESENT: soft, other - The abdomen is morbidly obese. Bowel sounds are distant. I am unable to evaluate the abdomen for organomegaly, masses , or hernias.. ABSENT: tenderness Neurological exam: PRESENT: alert, awake, oriented to person, oriented to place , oriented to time, oriented to situation, CN II-XII grossly intact. ABSENT: motor sensory deficit Skin exam: PRESENT: dry, intact, warm Results Laboratory Results: 06/14/18 06/14/18 13:39 17:12 Troponin I < 0.012 < 0.012 Impressions: Chest X-Ray 06/14/18 04:41 IMPRESSION: 1. No acute pneumonic process. Assessment & Plan - Diagnosis (1) Morbid obesity with BMI of 45.0-49.9, adult Is this a current diagnosis for this admission?: Yes Plan: Complicates all cares. (2) Chest pain, rule out acute myocardial infarction Is this a current diagnosis for this admission?: Yes Plan: Rule out [place] by EKG and enzyme criteria. Nuclear medicine stress. Will be a two- day protocol. (3) Anemia Qualifiers: Anemia type: unspecified type Qualified Code(s): D64.9 - Anemia, unspecified Is this a current diagnosis for this admission?: Yes Plan: Monitor. Will check iron studies. - Time Time Spent: 50 to 70 Minutes Medications reviewed and adjusted accordingly: Yes
[2018-06-14] MEDS: RISPERIDONE 1 MG TABLET PO SCH (21:30)
[2018-06-14] MEDS: OXYBUTYNIN CHLORIDE 5 MG TABLET PO SCH (21:31)
[2018-06-14] MEDS ORDERED: (PENDING PHARMACY ID) (Risperidone [Risperdal] 3 MG) PO SCH (22:00)
--- NOTE | 2018-06-14 22:28 | EKG REPORT ---
SEVERITY:- NORMAL ECG - SINUS RHYTHM : Confirmed by: Nik Ly 14-Jun-2018 22:27:35
[2018-06-15] MEDS: OXYBUTYNIN CHLORIDE 5 MG TABLET PO SCH ×3 (06:49→21:04)
[2018-06-15] MEDS: PREGABALIN 75 MG CAPSULE PO SCH ×3 (06:49→21:04)
[2018-06-15] MEDS ORDERED: (PENDING PHARMACY ID) (Cholecalciferol (Vitamin D3) [Vitamin D3] 2,000 UNIT) PO SCH (10:00)
[2018-06-15] MEDS ORDERED: (PENDING PHARMACY ID) (Oxybutynin Chloride [Oxybutynin Chloride Er] 15 MG) PO SCH (10:00)
[2018-06-15] MEDS: FERROUS SULFATE 325 MG TABLET PO SCH (10:34)
[2018-06-15] MEDS: RISPERIDONE 1 MG TABLET PO SCH ×2 (10:34→21:04)
[2018-06-15] MEDS: CHOLECALCIFEROL (D3) 1,000 UNIT TABLET PO SCH (10:34)
[2018-06-15] MEDS: ENOXAPARIN SODIUM INJ 40 MG/0.4 ML DISP.SYRIN SUBCUT SCH (10:35)
[2018-06-15] MEDS: ESCITALOPRAM OXALATE 10 MG TABLET PO SCH (10:35)
[2018-06-15] MEDS: OXYCODONE-ACETAMINOPHEN 5-325 MG TABLET PO PRN (11:13)
[2018-06-15] MEDS ORDERED: BISMUTH SUBSALICYLATE 262 MG TAB.CHEW PO PRN (13:06)
[2018-06-15] MEDS ORDERED: REGADENOSON INJ 0.4 MG/5 ML DISP.SYRIN IV ONE (13:23)
--- NOTE | 2018-06-15 18:02 | PDOC PROGRESS REPORT ---
Subjective Progress Note for:: 06/15/18 Subjective:: No further chest tightness/pain/discomfort. Reason For Visit: CHEST PAIN Physical Exam Vital Signs: Temp Pulse Resp BP Pulse Ox 97.6 F 55 L 20 120/73 96 06/15/18 11:38 06/15/18 14:00 06/15/18 11:38 06/15/18 11:38 06/15/18 11:38 Intake & Output 06/14/18 06/15/18 06/16/18 06:59 06:59 06:59 Intake Total 262 Balance 262 Weight 141.1 kg General appearance: PRESENT: no acute distress, cooperative, morbidly obese Respiratory exam: PRESENT: other - No increaed work of breathing. No wheezes, rales, or rhonchi. No tactile fremitus. Cardiovascular exam: PRESENT: RRR, other - No lateral PMI. No thrills.. ABSENT : gallop, rubs, systolic murmur GI/Abdominal exam: PRESENT: soft, other - The abdomen is orbidly obese. I am unable to evaluate the abdomen for organomegaly, masses, or hernias.. ABSENT: tenderness Rectal exam: PRESENT: deferred Extremities exam: ABSENT: clubbing, joint swelling, pedal edema, tenderness Musculoskeletal exam: PRESENT: full ROM. ABSENT: deformity, dislocation, normal inspection Neurological exam: PRESENT: alert, awake, oriented to person, oriented to place , oriented to time, oriented to situation, CN II-XII grossly intact. ABSENT: motor sensory deficit Psychiatric exam: PRESENT: appropriate affect, normal mood Skin exam: PRESENT: dry, intact, warm Results Laboratory Results: 06/14/18 06/14/18 13:39 17:12 Troponin I < 0.012 < 0.012 Impressions: Chest X-Ray 06/14/18 04:41 IMPRESSION: 1. No acute pneumonic process. Assessment & Plan - Diagnosis (1) Morbid obesity with BMI of 45.0-49.9, adult Is this a current diagnosis for this admission?: Yes (2) Chest pain, rule out acute myocardial infarction Is this a current diagnosis for this admission?: Yes Plan: LUCIA. Part 1 of 2 day protocol is negative for ischemia. Completes study tomorrow. (3) Anemia Qualifiers: Anemia type: unspecified type Qualified Code(s): D64.9 - Anemia, unspecified Is this a current diagnosis for this admission?: Yes - Time Time Spent with patient: 25-34 minutes Medications reviewed and adjusted accordingly: Yes
[2018-06-15] MEDS: ACETAMINOPHEN 325 MG TABLET PO PRN (20:58)
[2018-06-15] MEDS: TIZANIDINE HCL 4 MG TABLET PO PRN (21:04)
[2018-06-16] MEDS: OXYCODONE-ACETAMINOPHEN 5-325 MG TABLET PO PRN ×2 (05:20→14:34)
[2018-06-16] MEDS: PREGABALIN 75 MG CAPSULE PO SCH ×2 (05:20→14:13)
[2018-06-16] MEDS: OXYBUTYNIN CHLORIDE 5 MG TABLET PO SCH ×2 (05:21→14:22)
[2018-06-16] MEDS: FERROUS SULFATE 325 MG TABLET PO SCH (10:41)
[2018-06-16] MEDS: ESCITALOPRAM OXALATE 10 MG TABLET PO SCH (10:41)
[2018-06-16] MEDS: CHOLECALCIFEROL (D3) 1,000 UNIT TABLET PO SCH (10:41)
[2018-06-16] MEDS: ENOXAPARIN SODIUM INJ 40 MG/0.4 ML DISP.SYRIN SUBCUT SCH (10:42)
[2018-06-16] MEDS: RISPERIDONE 1 MG TABLET PO SCH (10:42)
[2018-06-16 16:19] VITALS: BP 109/53
--- NOTE | 2018-06-16 17:21 | PDOC DISCHARGE SUMMARY ---
General - Admit/Disc Date/PCP Admission Date/Primary Care Provider: 06/14/18 07:53 Discharge Date: 06/16/18 - Discharge Diagnosis (1) Morbid obesity with BMI of 45.0-49.9, adult Is this a current diagnosis for this admission?: Yes (2) Chest pain, rule out acute myocardial infarction Is this a current diagnosis for this admission?: Yes (3) Anemia Is this a current diagnosis for this admission?: Yes - Additional Information Resuscitation Status: Full Code Discharge Diet: Cardiac Discharge Activity: Activity As Tolerated, No Driving Home Medications: Diphenhydramine HCl [Benadryl 25 mg Capsule] 25 mg PO HSP PRN 06/14/18 Escitalopram Oxalate [Lexapro] 20 mg PO DAILY 06/14/18 Ferrous Sulfate [Feosol 325 mg Tablet] 325 mg PO DAILY 06/14/18 Oxybutynin Chloride [Oxybutynin Chloride ER] 15 mg PO DAILY 06/14/18 Oxycodone HCl/Acetaminophen [Endocet 10-325 mg Tablet] 1 tab PO Q8HP PRN Pregabalin [Lyrica 75 mg Capsule] 75 mg PO Q8 06/14/18 Risperidone [Risperdal] 3 mg PO Q12 06/14/18 Tizanidine HCl [Zanaflex 4 mg Tablet] 4 mg PO Q8HP PRN 06/14/18 History of Present Illness History of Present Illness: VALDO SANTANA is a 52 year old female who was admitted with right sided chest tightness that was accompanied by shortness of breath and nausea. Hospital Course Hospital Course: The patient was admitted to a telemetry bed. She was given pain control, asa, and she was ruled out for [place] by EKG and enzyme criteria. She underwent a nuclear medicine stress test on a 2-day protocol. I have discussed the patient with Dr. Nava who states that he feels that the study was negative and that the patient may be discharged to home. However, he does want to see the patient in his office as outpatient. Physical Exam Vital Signs: Temp Pulse Resp BP Pulse Ox 98.1 F 63 19 109/53 L 98 06/16/18 16:48 06/16/18 16:48 06/16/18 16:48 06/16/18 16:48 06/16/18 16:48 Intake & Output 06/15/18 06/16/18 06/17/18 06:59 06:59 06:59 Intake Total 262 620 Balance 262 620 Weight 141.1 kg 138.3 kg General appearance: PRESENT: no acute distress, cooperative, morbidly obese Respiratory exam: PRESENT: other - No increased work of breathing.. ABSENT: rales, rhonchi, wheezes Cardiovascular exam: PRESENT: RRR, other - No lateral PMI. No thrills.. ABSENT : gallop, rubs, systolic murmur GI/Abdominal exam: PRESENT: soft, other - The abdomen is morbidly obese. Bowel sounds are distant. I am unable to evaluate the patient's abdomen for organomegaly, masses, or hernias due to her body habitus.. ABSENT: tenderness Neurological exam: PRESENT: alert, awake, oriented to person, oriented to place , oriented to time, oriented to situation, CN II-XII grossly intact. ABSENT: motor sensory deficit Psychiatric exam: PRESENT: appropriate affect, normal mood Skin exam: PRESENT: dry, intact, warm Results Laboratory Results: 06/14/18 06/14/18 13:39 17:12 Troponin I < 0.012 < 0.012 Impressions: Chest X-Ray 06/14/18 04:41 IMPRESSION: 1. No acute pneumonic process. NM STRESS: No reversible ischemia identified. Qualifiers - * PATIENT BEING DISCHARGED WITH ANY OF THE FOLLOWING DIAGNOSIS: No
== END 2018-06-16 17:22 | disposition home or self-care (01) ==
LOC: ER 04:12 → EH 07:53 → 4W 09:54 → 4N 12:47
PROVIDERS: ADMIT Internal Medicine; ATTEND Internal Medicine
DX: R07.89 Other chest pain (principal); E66.01 Morbid (severe) obesity due to excess calories; Z68.42 Body mass index [BMI] 45.0-49.9, adult; D64.9 Anemia, unspecified; N32.81 Overactive bladder; M19.90 Unspecified osteoarthritis, unspecified site; F31.9 Bipolar disorder, unspecified; R61 Generalized hyperhidrosis; R11.0 Nausea; R14.1 Gas pain; R00.1 Bradycardia, unspecified; Z79.899 Other long term (current) drug therapy; Z87.01 Personal history of pneumonia (recurrent); Z90.49 Acquired absence of other specified parts of digestive tract; Z98.84 Bariatric surgery status; Z82.49 Family history of ischemic heart disease and other diseases of the circulatory system; Z98.51 Tubal ligation status
CPT/HCPCS: 93005 ×2; 99285; 36415; 85025; 80053; 84484; 80061; 83880; 93017; 71046; 78452; 93010; G0378 ×4; A9500; J2785; J3490 ×5; J1650 ×3; Q9969

== ENCOUNTER → 2018-06-21 | Outpatient (CLI) | payer BC ==
--- NOTE | 2018-06-22 15:48 | WOMENS IMAGING REPORT ---
EXAM DESCRIPTION: 3D SCREENING MAMMO BILAT COMPLETED DATE/TIME: 06/21/2018 3:00 pm REASON FOR STUDY: BILATERAL SCREENING MAMMO 3D/Z12.31 Z12.31 ENCNTR SCREEN MAMMOGRAM FOR MALIGNANT NEOPLASM OF AHMET COMPARISON: Multiple since 2013 TECHNIQUE: Standard craniocaudal and mediolateral oblique views of each breast recorded using digita l acquisition and breast tomosynthesis. LIMITATIONS: None. FINDINGS: No masses, calcifications or architectural distortion. No areas of suspicion. Read with the assistance of CAD. .[facility] R2 Cenova Version 1.3 .[facility] - R2 Cenova Version 1.3 .[facility] - R2 Cenova Version 2.4 .[facility] - R2 Cenova Version 2.4 .[facility] - R2 Puff Ironer Version 9.2 IMPRESSION: NORMAL MAMMOGRAM. BIRADS 1. BREAST DENSITY: b. There are scattered areas of fibroglandular density. BIRAD: 1 NEGATIVE RECOMMENDATION: ROUTINE SCREENING Please continue yearly bilateral screening tomosynthesis in June 2018 COMMENT: The patient has been notified of the results by letter per SA requirements. Additional no tification policies are in place for contacting patient with suspicious or incomplete findings. Quality ID #[id number]: The [employer] recommends an annual screening mammogram for women aged 40 years or over. This facility utilizes a reminder system to ensure that all patients receive reminder letters, and/or direct phone calls for appointments. This includes reminders for routine scr eening mammograms, diagnostic mammograms, or other Breast Imaging Interventions when appropriate. Th is patient will be placed in the appropriate reminder system. The [employer] (ACR) has developed recommendations for screening MRI of the breast s in certain patient populations, to be used in conjunction with mammography. Breast MRI surveillanc e may be appropriate for women with more than 20% lifetime risk of developing breast cancer as deter mined by genetic testing, significant family history of the disease, or history of mantle radiation f or Hodgkins Disease. ACR Practice Guidelines 2008. DBT Technology DBT is a type of tomographic mammography. With conventional mammography, overlapping breast tissue ma y make lesions difficult to detect, even with good compression. DBT uses an x-ray tube that rotates a round the breast, taking images at different angles. These images are then combined to create thin sl ices of the breast that the radiologist can view as a 3D reconstruction. The Whatser unit can perform full-field digital mammograms (2D imaging); or DBT (3D imaging); or both, in a combination mode that quickly performs both the mammogram and the tomosynthesis scan while the breast is still compressed. PQRS 6045F: Fluoroscopic imaging is not utilized for breast tomosynthesis. TECHNICAL DOCUMENTATION: FINDING NUMBER: (1) ASSESSMENT: (1) JOB ID: [id number] [email or web address]- All Rights Reserved Reading location - IP/workstation name: [facility]
== END ==
LOC: WI 14:36
PROVIDERS: ATTEND Obstetrics & Gynecology Gynecology
DX: Z12.31 Encounter for screening mammogram for malignant neoplasm of breast (principal)
CPT/HCPCS: 77063; 77067

== ENCOUNTER 2018-10-01 00:05 | Emergency (ER) | payer OTHER, BC ==
[2018-10-01] MEDS ORDERED: METHOCARBAMOL 750 MG TABLET PO ONE (01:16)
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
[2018-10-01 01:37] VITALS: BP 138/78
== END 2018-10-01 01:30 | disposition home or self-care (01) ==
LOC: ER 00:05
DX: Z04.1 Encounter for examination and observation following transport accident (principal); M25.552 Pain in left hip; G89.29 Other chronic pain; Z98.84 Bariatric surgery status
CPT/HCPCS: 99283; J3490

== ENCOUNTER 2018-10-05 12:20 | Emergency (ER) | payer BC, OTHER ==
--- NOTE | 2018-10-05 12:53 | ER Document Report ---
ED Medical Screen (RME) - General Chief Complaint: Leg Pain Stated Complaint: RIGHT LEG PAIN Time Seen by Provider: 10/05/18 12:47 Notes: Patient is a 52-year-old female that presents to the emergency department for chief complaint of bilateral lower extremity swelling and edema and redness. Patient reports she first noticed this yesterday, and it happened to both legs, has been itching as well and she is been scratching the area, she also comments that she has a rash underneath, 1 of her abdominal folds that she noticed yesterday, on the right side. ROS: Other than noted above, the 12 point review of systems was reviewed with the patient and were negative, all pertinent findings are included in the HPI. PHYSICAL EXAMINATION: Vital signs reviewed. GENERAL: Morbidly obese female, in no acute distress HEAD: Atraumatic, normocephalic. EYES: Pupils equal round extraocular movements intact, conjunctiva are normal. ENT: Nares patent NECK: Normal range of motion CV: Heart regular rate and rhythm LUNGS: No respiratory distress Musculoskeletal: Normal range of motion, bilateral lower extremities are erythematous, nearly circumferentially, to the mid tibia, and tender to palpate , with pitting edema NEUROLOGICAL: Normal speech PSYCH: Normal mood, normal affect. Skin: There is what appears to be a candidal rash, underneath the patient's pannus on the right, there is excoriations superficially noted to the bilateral lower extremities as well with erythema surrounding. MDM: Patient seen and examined for rapid initial assessment. Vital signs reviewed. A comprehensive ED assessment and evaluation of the patient, analysis of test results and completion of the medical decision making process will be conducted by additional ED providers. *Note is created using voice recognition software and may contain spelling, syntax or grammatical errors. TRAVEL OUTSIDE OF THE [place] IN LAST 30 DAYS: No - Related Data Allergies/Adverse Reactions: No Known Allergies Allergy (Verified 06/14/18 07:46) Past Medical History - Past Medical History Cardiac Medical History: Denies: Hx Hypertension Pulmonary Medical History: Reports: Hx Bronchitis - w/ RAD, Hx Pneumonia Denies: Hx Asthma, Hx Tuberculosis Neurological Medical History: Denies: Hx Seizures Renal/ Medical History: Denies: Hx Peritoneal Dialysis Musculoskeltal Medical History: Reports Hx Arthritis - bilateral knees Psychiatric Medical History: Reports: Hx Bipolar Disorder, Hx Depression Denies: Hx Schizophrenia Past Surgical History: Reports: Hx Abdominal Surgery - gastric bypass, Hx Cholecystectomy, Hx Gastric Bypass Surgery - 1994, Hx Tonsillectomy, Hx Tubal Ligation. Denies: Hx Hysterectomy - Immunizations Immunizations up to date: Yes Hx Diphtheria, Pertussis, Tetanus Vaccination: Yes History of Influenza Vaccine for 07/2017 - 12/2017 Season: Unknown Physical Exam - Vital signs Vitals: Temp Pulse Resp BP Pulse Ox 97.6 F 80 20 118/67 95 10/05/18 12:26 10/05/18 12:26 10/05/18 12:26 10/05/18 12:26 10/05/18 12:26 Course - Vital Signs Vital signs: Temp Pulse Resp BP Pulse Ox 97.6 F 80 20 118/67 95 10/05/18 12:26 10/05/18 12:26 10/05/18 12:26 10/05/18 12:26 10/05/18 12:26
[2018-10-05 13:21] LABS: ABSOLUTE BASOPHILS # (AUTO) 0.1 10^3/uL (0.0-0.2); ABSOLUTE EOSINOPHILS # (AUTO) 0.3 10^3/uL (0.0-0.6); ABSOLUTE LYMPHOCYTES (AUTO) 0.6 10^3/uL (0.5-4.7); ABSOLUTE MONOCYTES (AUTO) 0.6 10^3/uL (0.1-1.4); ABSOLUTE NEUT (AUTO) 3.2 10^3/uL (1.7-8.2); BASOPHILS % (AUTO) 1.1 % (0-2); EOSINOPHILS % (AUTO) 6.3 % (0-6); HEMATOCRIT 37.1 % (36.0-47.0); HEMOGLOBIN 12.4 g/dL (12.0-15.5); LYMPHOCYTES % (AUTO) 13.2 % (13-45); MEAN CORPUSCULAR HEMOGLOBIN 30.6 pg (27.0-33.4); MEAN CORPUSCULAR HGB CONC 33.5 g/dL (32.0-36.0); MEAN CORPUSCULAR VOLUME 91 fl (80-97); MONOCYTES % (AUTO) 11.7 % (3-13); PLATELET COUNT 188 10^3/uL (150-450); RED BLOOD COUNT 4.06 10^6/uL (3.72-5.28); RED CELL DISTRIBUTION WIDTH 14.1 % (11.5-14.0); SEGMENTED NEUTROPHILS % (AUTO) 67.7 % (42-78); TOTAL CELLS COUNTED % (AUTO) 100 %; WHITE BLOOD COUNT 4.8 10^3/uL (4.0-10.5)
[2018-10-05 13:33] LABS: ALANINE AMINOTRANSFERASE 22 U/L (9-52); ALBUMIN 3.6 g/dL (3.5-5.0); ALKALINE PHOSPHATASE 101 U/L (38-126); ANION GAP 10 (5-19); ASPARTATE AMINO TRANSFERASE 23 U/L (14-36); BILIRUBIN,DIRECT 0.3 mg/dL (0.0-0.4); BILIRUBIN,TOTAL 0.4 mg/dL (0.2-1.3); BLOOD UREA NITROGEN 18 mg/dL (7-20); CALCIUM 8.5 mg/dL (8.4-10.2); CARBON DIOXIDE 25 mmol/L (22-30); CHLORIDE 106 mmol/L (98-107); GLUCOSE 83 mg/dL (75-110); POTASSIUM 3.7 mmol/L (3.6-5.0); SODIUM 141.4 mmol/L (137-145); TOTAL PROTEIN 6.2 g/dL (6.3-8.2)
--- NOTE | 2018-10-05 15:13 | RADIOLOGY REPORT (SQ) ---
EXAM DESCRIPTION: VENOUS BILATERAL LOWER COMPLETED DATE/TIME: 10/05/2018 3:04 pm REASON FOR STUDY: bilateral le edema and erythema COMPARISON: None. TECHNIQUE: Dynamic and static cook scale and color images acquired of both lower extremity venous sy stems. Selected spectral images acquired with additional compression and augmentation maneuvers. Imag es stored on PACS. LIMITATIONS: None. FINDINGS: RIGHT LEG COMMON FEMORAL AND FEMORAL: Normal phasicity, compression and augmentation. No visualized echogenic m aterial on cook scale. No defects on color images. The distal femoral vein could not be visualized. POPLITEAL: Normal compression and augmentation. No visualized echogenic material on ocok scale. No de fects on color images. CALF VESSELS: Normal compression and augmentation. No visualized echogenic material on cook scale. No defects on color image. The posterior tibial and peroneal vein could not be visualized. GSV AND SSV: Normal compression. No visualized echogenic material on cook scale. No defects on color images. ANY DEEP VENOUS INSUFFICIENCY: Not evaluated. ANY EVIDENCE OF POPLITEAL CYST: No. OTHER: No other significant finding. LEFT LEG COMMON FEMORAL AND FEMORAL: Normal phasicity, compression and augmentation. No visualized echogenic m aterial on cook scale. No defects on color images. POPLITEAL: Normal compression and augmentation. No visualized echogenic material on cook scale. No de fects on color images. CALF VESSELS: Normal compression and augmentation. No visualized echogenic material on cook scale. No defects on color images. The posterior tibial and peroneal vein could not be visualized. GSV AND SSV: Normal compression. No visualized echogenic material on cook scale. No defects on color images. ANY DEEP VENOUS INSUFFICIENCY: Not evaluated. ANY EVIDENCE POPLITEAL CYST: No. OTHER: No other significant finding. IMPRESSION: NO EVIDENCE DVT OR SVT IN EITHER LEG. TECHNICAL DOCUMENTATION: JOB ID: [id number] [employer]- All Rights Reserved Reading location - IP/workstation name: [email or web address]
[2018-10-05 15:59] LABS: APPEARANCE,URINE SLIGHTLY-CLOUDY; BILIRUBIN,URINE NEGATIVE (NEGATIVE); COLOR,URINE YELLOW; GLUCOSE, URINE NEGATIVE (NEGATIVE); KETONES,URINE NEGATIVE (NEGATIVE); LEUKOCYTE ESTERASE,URINE NEGATIVE (NEGATIVE); NITRITE,URINE POSITIVE (NEGATIVE); PROTEIN,URINE NEGATIVE (NEGATIVE); URINE SPECIFIC GRAVITY 1.029; UROBILINOGEN,URINE NEGATIVE mg/dL (<2.0)
--- NOTE | 2018-10-05 16:02 | RADIOLOGY REPORT (SQ) ---
EXAM DESCRIPTION: CHEST 2 VIEWS COMPLETED DATE/TIME: 10/05/2018 3:54 pm REASON FOR STUDY: peripheral edema COMPARISON: May 2018 EXAM PARAMETERS: NUMBER OF VIEWS: two views TECHNIQUE: Digital Frontal and Lateral radiographic views of the chest acquired. RADIATION DOSE: NA LIMITATIONS: none FINDINGS: LUNGS AND PLEURA: No opacities, masses or pneumothorax. No pleural effusion. MEDIASTINUM AND HILAR STRUCTURES: No masses or contour abnormalities. HEART AND VASCULAR STRUCTURES: Heart normal size. No evidence for failure. BONES: No acute findings. HARDWARE: None in the chest. OTHER: No other significant finding. IMPRESSION: NO ACUTE RADIOGRAPHIC FINDING IN THE CHEST. TECHNICAL DOCUMENTATION: JOB ID: [id number] [employer]- All Rights Reserved Reading location - IP/workstation name: [email or web address]-[email or web address]
--- NOTE | 2018-10-05 16:09 | ER Document Report ---
ED Extremity Problem, Lower - General Chief Complaint: Leg Pain Stated Complaint: RIGHT LEG PAIN Time Seen by Provider: 10/05/18 12:47 Mode of Arrival: Ambulatory Information source: Patient Notes: Patient presents complaining of bilateral leg pain and swelling that started yesterday. Patient denies any fever, chest pain or shortness of breath. Patient denies any history of congestive heart failure. Patient denies any recent travel bedrest or immobilization. TRAVEL OUTSIDE OF THE [place] IN LAST 30 DAYS: No - HPI Patient complains to provider of: Pain, Swelling Location: Leg Occurred: Yesterday Onset/Duration: Gradual Quality of pain: Achy Pain Level: 3 Context: denies: Recent immobilization, Recent surgery, Recent travel Associated symptoms: denies: Chest pain, Fever, Rapid heart rate, Short of breath, Unable to bear weight Exacerbated by: Nothing Relieved by: Nothing - Related Data Allergies/Adverse Reactions: No Known Allergies Allergy (Verified 06/14/18 07:46) Past Medical History - General Information source: Patient - Social History Smoking Status: Never Smoker Frequency of alcohol use: None Drug Abuse: None 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 Family History: CAD, Hypertension Patient has suicidal ideation: No Patient has homicidal ideation: No - Past Medical History Cardiac Medical History: Denies: Hx Congestive Heart Failure, Hx Hypertension Pulmonary Medical History: Reports: Hx Bronchitis - w/ RAD, Hx Pneumonia Denies: Hx Asthma, Hx Tuberculosis Neurological Medical History: Denies: Hx Seizures Renal/ Medical History: Denies: Hx Peritoneal Dialysis Musculoskeletal Medical History: Reports Hx Arthritis - bilateral knees Psychiatric Medical History: Reports: Hx Bipolar Disorder, Hx Depression Denies: Hx Schizophrenia Past Surgical History: Reports: Hx Abdominal Surgery - gastric bypass, Hx Cholecystectomy, Hx Gastric Bypass Surgery - 1994, Hx Tonsillectomy, Hx Tubal Ligation. Denies: Hx Hysterectomy - Immunizations Immunizations up to date: Yes Hx Diphtheria, Pertussis, Tetanus Vaccination: Yes Review of Systems - Review of Systems Constitutional: No symptoms reported. denies: Fever EENT: No symptoms reported Cardiovascular: No symptoms reported. denies: Chest pain, Orthopnea, Dizziness Respiratory: No symptoms reported. denies: Cough, Short of breath Gastrointestinal: No symptoms reported. denies: Vomiting Genitourinary: No symptoms reported. denies: Dysuria Female Genitourinary: No symptoms reported Musculoskeletal: Leg swelling. denies: Back pain Skin: Other - Redness to bilateral lower extremities Hematologic/Lymphatic: No symptoms reported Neurological/Psychological: No symptoms reported Physical Exam - Vital signs Vitals: Temp Pulse Resp BP Pulse Ox 97.6 F 80 20 118/67 95 10/05/18 12:26 18 12:26 10/05/18 12:26 10/05/18 12:26 10/05/18 12:26 - General General appearance: Appears well, Alert Notes: Morbidly obese - HEENT Head: Normocephalic Eyes: Normal Conjunctiva: Normal Nasal: Normal Mouth/Lips: Normal Mucous membranes: Normal Neck: Normal, Supple. No: Lymphadenopathy - Respiratory Respiratory status: No respiratory distress Chest status: Nontender Breath sounds: Normal. No: Rales, Rhonchi, Stridor Chest palpation: Normal. No: Tender - Cardiovascular Rhythm: Regular Heart sounds: S1 appreciated, S2 appreciated Murmur: No - Abdominal Inspection: Morbidly Obese Distension: No distension Bowel sounds: Normal Tenderness: Nontender - Back Back: Normal, Nontender. No: CVA tenderness - Extremities General upper extremity: Normal inspection, Normal strength General lower extremity: Edema - 2+ bilateral pedal edema, Normal ROM, Normal strength, Normal temperature, Normal weight bearing. No: Normal color - Erythema to the distal half of bilateral lower extremities - Neurological Neuro grossly intact: Yes Cognition: Normal Александр Coma Scale Eye Opening: Spontaneous Александр Coma Scale Verbal: Oriented [place] Coma Scale Motor: Obeys Commands [place] Coma Scale Total: 15 - Psychological Associated symptoms: Normal affect, Normal mood - Skin Skin Temperature: Warm Skin Moisture: Dry Skin Color: Erythema - Lateral lower extremities Course - Re-evaluation Re-evalutation: 10/05/18 17:00 Reviewed patient's diagnostic test results. No concern for heart failure at this time patient with normal BNP, no cardiac enlargement no pulmonary edema. Patient does have incidental UTI at this time. Patient without any leukocytosis or fever. Will treat urinalysis with Keflex at this time. Will give short course of diuretics to help with peripheral edema. Patient encouraged to follow-up with primary care provider for recheck. Consulted with Dr. Barbour who agrees with this plan of care at this time. - Vital Signs Vital signs: Temp Pulse Resp BP Pulse Ox 97.7 F 75 20 117/75 100 10/05/18 17:54 10/05/18 17:54 10/05/18 17:54 10/05/18 17:54 10/05/18 17:54 - Laboratory Result Diagrams: 10/05/18 13:04 10/05/18 13:04 Laboratory results interpreted by me: 10/05/18 10/05/18 10/05/18 13:04 13:04 15:34 RDW 14.1 H Eosinophils % 6.3 H Total Protein 6.2 L Urine Blood SMALL H Urine Nitrite POSITIVE H 10/05/18 17:00 Labs- Entire Visit 10/05/18 10/05/18 10/05/18 13:04 13:04 13:04 WBC 4.8 RBC 4.06 Hgb 12.4 Hct 37.1 MCV 91 MCH 30.6 MCHC 33.5 RDW 14.1 H Plt Count 188 Seg Neutrophils % 67.7 Lymphocytes % 13.2 Monocytes % 11.7 Eosinophils % 6.3 H Basophils % 1.1 Absolute Neutrophils 3.2 Absolute Lymphocytes 0.6 Absolute Monocytes 0.6 Absolute Eosinophils 0.3 Absolute Basophils 0.1 Sodium 141.4 Potassium 3.7 Chloride 106 Carbon Dioxide 25 Anion Gap 10 BUN 18 Creatinine 0.69 Est GFR ( Amer) > 60 Est GFR (Non-Af Amer) > 60 Glucose 83 Calcium 8.5 Total Bilirubin 0.4 Direct Bilirubin 0.3 Neonat Total Bilirubin Not Reportable Neonat Direct Bilirubin Not Reportable Neonat Indirect Bili Not Reportable AST 23 ALT 22 Alkaline Phosphatase 101 NT-Pro-B Natriuret Pep 66 Total Protein 6.2 L Albumin 3.6 Urine Color Urine Appearance Urine pH Ur Specific [place] Urine Protein Urine Glucose (UA) Urine Ketones Urine Blood Urine Nitrite Urine Bilirubin Urine Urobilinogen Ur Leukocyte Esterase Urine WBC (Auto) Urine RBC (Auto) Urine Bacteria (Auto) Squamous Epi Cells Auto Urine Mucus (Auto) Urine Ascorbic Acid 10/05/18 15:34 WBC RBC Hgb Hct MCV MCH MCHC RDW Plt Count Seg Neutrophils % Lymphocytes % Monocytes % Eosinophils % Basophils % Absolute Neutrophils Absolute Lymphocytes Absolute Monocytes Absolute Eosinophils Absolute Basophils Sodium Potassium Chloride Carbon Dioxide Anion Gap BUN Creatinine Est GFR ( Amer) Est GFR (Non-Af Amer) Glucose Calcium Total Bilirubin Direct Bilirubin Neonat Total Bilirubin Neonat Direct Bilirubin Neonat Indirect Bili AST ALT Alkaline Phosphatase NT-Pro-B Natriuret Pep Total Protein Albumin Urine Color YELLOW Urine Appearance SLIGHTLY-CLOUDY Urine pH 5.0 Ur Specific [place] 1.029 Urine Protein NEGATIVE Urine Glucose (UA) NEGATIVE Urine Ketones NEGATIVE Urine Blood SMALL H Urine Nitrite POSITIVE H Urine Bilirubin NEGATIVE Urine Urobilinogen NEGATIVE Ur Leukocyte Esterase NEGATIVE Urine WBC (Auto) 1 Urine RBC (Auto) 0 Urine Bacteria (Auto) 3+ Squamous Epi Cells Auto 1 Urine Mucus (Auto) RARE Urine Ascorbic Acid NEGATIVE - Diagnostic Test Radiology reviewed: Image reviewed, Reports reviewed Discharge - Discharge Clinical Impression: Edema, peripheral UTI (urinary tract infection) Qualifiers: Urinary tract infection type: site unspecified Hematuria presence: with hematuria Qualified Code(s): N39.0 - Urinary tract infection, site not specified Condition: Stable Disposition: HOME, SELF-CARE Instructions: Cephalexin ([facility]), Edema, Peripheral ([facility]), Urinary Tract Infection ([facility]) Additional Instructions: Return immediately for any new or worsening symptoms Followup with your primary care provider, call tomorrow to make a followup appointment Limit sodium intake in your diet Urine, we will call if you need any different treatment Prescriptions: Cephalexin Monohydrate [Keflex 500 mg Capsule] 500 mg PO Q6H 7 Days capsule Furosemide [Lasix] 10 mg PO BID #3 tablet Forms: Return to Work Referrals: CARLIE YOUNGBLOOD NP [Primary Care Provider] - Follow up tomorrow
[2018-10-05] MEDS ORDERED: FUROSEMIDE 20 MG TABLET PO ONE (16:59)
[2018-10-05] MEDS ORDERED: CEPHALEXIN 500 MG CAPSULE PO ONE (17:02)
[2018-10-05 17:55] VITALS: BP 117/75
== END 2018-10-05 17:56 | disposition home or self-care (01) ==
LOC: ER 12:20
DX: N39.0 Urinary tract infection, site not specified (principal); R60.0 Localized edema; M79.604 Pain in right leg; M79.605 Pain in left leg; M79.89 Other specified soft tissue disorders
CPT/HCPCS: 36415; 71046; 80053; 81001; 83880; 85025; 87086; 87088; 87186; 93970; 99284

== ENCOUNTER 2018-10-11 22:35 | Emergency (ER) | payer BC ==
--- NOTE | 2018-10-12 00:26 | ER Document Report ---
ED Fall - General Chief Complaint: Passed Out Prior to Arrival Stated Complaint: FALL Time Seen by Provider: 10/12/18 00:03 Notes: 52-year-old female to the emergency department for evaluation of "my knees gave out". Patient was working at [id number] making some [employer]. Has been off work for a week. This was her first day back. Lennon like her knees locked up on her while at work. Did not pass out. Did not hit her head. Had a difficult time standing because she has arthritis in the knees. Denies any injuries. TRAVEL OUTSIDE OF THE [place] IN LAST 30 DAYS: No - HPI Occurred: Just prior to arrival Where: Work Location of injury/pain: Knee Quality of pain: Achy Severity: Mild Pain Level: 1 - Related data Allergies/Adverse Reactions: No Known Allergies Allergy (Verified 06/14/18 07:46) Past Medical History - General Information source: Patient - Social History Smoking Status: Unknown if Ever Smoked Frequency of alcohol use: None Drug Abuse: None Lives with: Alone Family History: CAD, Hypertension Patient has suicidal ideation: No Patient has homicidal ideation: No - Past Medical History Cardiac Medical History: Denies: Hx Congestive Heart Failure, Hx Hypertension Pulmonary Medical History: Reports: Hx Bronchitis - w/ RAD, Hx Pneumonia Denies: Hx Asthma, Hx Tuberculosis Neurological Medical History: Denies: Hx Seizures Renal/ Medical History: Denies: Hx Peritoneal Dialysis Musculoskeletal Medical History: Reports Hx Arthritis - bilateral knees Psychiatric Medical History: Reports: Hx Bipolar Disorder, Hx Depression Denies: Hx Schizophrenia Past Surgical History: Reports: Hx Abdominal Surgery - gastric bypass, Hx Cholecystectomy, Hx Gastric Bypass Surgery - 1994, Hx Tonsillectomy, Hx Tubal Ligation. Denies: Hx Hysterectomy - Immunizations Immunizations up to date: Yes Hx Diphtheria, Pertussis, Tetanus Vaccination: Yes Review of Systems - Review of Systems Notes: Constitutional: denies: Chills, Diaphoresis, Fever, Malaise, Weakness EENT: denies: Eye discharge, Blurred vision, Tearing, Double vision, Nose congestion, Nose discharge, Throat swelling, Mouth pain Cardiovascular: denies: Palpitations, Heart racing, Orthopnea, Dyspnea, Chest pain Respiratory: denies: Cough, Hurts to breathe, Wheezing, Shortness of breath Gastrointestinal: denies: Abdominal pain, Diarrhea, Nausea, Vomiting, Black stools, bright red blood in stool Genitourinary: denies: Burning, Dysuria, Discharge, Frequency, Flank pain, Hematuria Musculoskeletal: denies: Joint swelling, Muscle pain, Muscle stiffness, back pain, does complain of chronic knee pain bilaterally and weakness in the knees Hematologic/Lymphatic: denies: Anemia, Easy bleeding, Easy bruising, Blood clots Neurological/Psychological: denies: Confusion, Dementia, Depression, Loss of consciousness Skin: No lesions, no masses, no skin breakdown, no abscesses Physical Exam - Vital signs Vitals: Temp Pulse Resp BP Pulse Ox 97.3 F 94 16 111/69 95 10/11/18 22:50 10/11/18 22:50 10/11/18 22:50 10/11/18 22:50 10/11/18 22:50 Interpretation: Normal - General General appearance: Appears well, Alert - HEENT Head: Normocephalic, Atraumatic Eyes: Normal Pupils: PERRL - Respiratory Respiratory status: No respiratory distress Chest status: Nontender Breath sounds: Normal Chest palpation: Normal - Cardiovascular Rhythm: Regular Heart sounds: Normal auscultation Murmur: No - Abdominal Inspection: Normal Distension: No distension Bowel sounds: Normal Tenderness: Nontender Organomegaly: No organomegaly - Back Back: Normal, Nontender - Extremities General upper extremity: Normal inspection, Nontender, Normal color, Normal ROM , Normal temperature General lower extremity: Normal inspection, Tender - Mild tenderness bilateral knees but no deformity. There is no significant edema to the bilateral lower extremities. Negative Homans sign. No signs of cellulitis. Able to ambulate across the room without assistance or difficulty., Normal color, Normal ROM, Normal temperature, Normal weight bearing. No: Missy's sign - Neurological Neuro grossly intact: Yes Cognition: Normal Orientation: AAOx4 [place] Coma Scale Eye Opening: Spontaneous [place] Coma Scale Verbal: Oriented Александр Coma Scale Motor: Obeys Commands [place] Coma Scale Total: 15 Speech: Normal Motor strength normal: LUE, RUE, LLE, RLE Sensory: Normal - Psychological Associated symptoms: Normal affect, Normal mood - Skin Skin Temperature: Warm Skin Moisture: Dry Skin Color: Normal Course - Re-evaluation Re-evalutation: 10/12/18 01:04 EKG unremarkable and unchanged from prior. Blood sugar within normal limits. Nothing further to offer at this time. Did drug and alcohol counselor her and advise her accordingly with regards to weight loss using a lower carbohydrate diet. Patient does admit that she is drinking sodas and sweet tea. With her history of gastric bypass she has serious obesity disease and I have advised her that continuing with liquid carbohydrates is not a good idea. I have advised her that a lot of her knee pain is due to the excessive amount of weight and that some weight loss will relieve a lot of the symptoms she is having in her knees. I have advised her to seek the help of a weight loss specialist. - Vital Signs Vital signs: Temp Pulse Resp BP Pulse Ox 97.3 F 94 16 111/69 95 10/11/18 22:50 10/11/18 22:50 10/11/18 22:50 10/11/18 22:50 10/11/18 22:50 Discharge - Discharge Clinical Impression: Bilateral knee pain Qualifiers: Chronicity: chronic Qualified Code(s): M25.561 - Pain in right knee; M25.562 - Pain in left knee; M25.562 - Pain in left knee; G89.29 - Other chronic pain; G89.29 - Other chronic pain Condition: Good Disposition: HOME, SELF-CARE Instructions: Knee Effusion ([facility]), Knee Exercise Program ([facility]) Referrals: CARLIE YOUNGBLOOD NP [Primary Care Provider] - Follow up as needed
[2018-10-12 01:20] VITALS: BP 118/75
--- NOTE | 2018-10-12 07:50 | EKG REPORT ---
SEVERITY:- BORDERLINE ECG - SINUS RHYTHM NONSPECIFIC ST-T CHANGES- INFERIORAND ANTERIOR LEADS : Confirmed by: Matheus Tyson MD 12-Oct-2018 07:49:24
== END 2018-10-12 01:20 | disposition home or self-care (01) ==
LOC: ER 22:35
DX: G89.29 Other chronic pain (principal); M25.561 Pain in right knee; M25.562 Pain in left knee; R55 Syncope and collapse; Z98.84 Bariatric surgery status; Z90.49 Acquired absence of other specified parts of digestive tract; Z98.51 Tubal ligation status
CPT/HCPCS: 82962; 93005; 93010; 99284

== ENCOUNTER 2019-01-25 15:52 | Emergency (ER) | payer BC, OTHER ==
--- NOTE | 2019-01-25 16:23 | ER Document Report ---
HPI - HPI Time Seen by Provider: 01/25/19 16:19 Pain Level: 5 Notes: Patient is a 53-year-old female with a history of arthritis and chronic pain, under care of pain management, who presents emergency department complaining of left foot pain status post injury last night. Patient states that she is walking back from the bathroom in the middle night and she had knee pain and injured her foot when she fell on the ground. Patient states that this happens often because of the arthritis in her knees which has been evaluated by multiple specialist as well as her family doctor. Patient states that she also did have an episode where she had early satiety and nausea after eating dinner yesterday that has since resolved after she took a nap. Patient states that she has been feeling well since then aside from the foot pain. She has no other concerns or complaints. She is eating and drinking without difficulty at this time. She is urinating normally and having normal bowel movements. Denies drug allergies. No loss of consciousness. Denies any headache, fever, head injury, neck pain, changes in vision/speech/mentation/hearing, URI, sore throat, chest pain, palpitations, syncope, cough, shortness of breath, wheeze, dyspnea, abdominal pain, nausea/vomiting/diarrhea, urinary retention, dysuria, hematuria, loss of control of bowel or bladder, numbness/tingling, saddle anesthesia, muscle paralysis/weakness, or rash. - ROS Systems Reviewed and Negative: Yes All other systems reviewed and negative - REPRODUCTIVE Reproductive: DENIES: : Past Medical History - Social History Smoking Status: Never Smoker Family History: CAD, Hypertension Patient has suicidal ideation: No Patient has homicidal ideation: No - Past Medical History Cardiac Medical History: Denies: Hx Congestive Heart Failure, Hx Hypertension Pulmonary Medical History: Reports: Hx Bronchitis - w/ RAD, Hx Pneumonia Denies: Hx Asthma, Hx Tuberculosis Neurological Medical History: Denies: Hx Seizures Renal/ Medical History: Denies: Hx Peritoneal Dialysis Musculoskeletal Medical History: Reports Hx Arthritis - bilateral knees Psychiatric Medical History: Reports: Hx Bipolar Disorder, Hx Depression Denies: Hx Schizophrenia Past Surgical History: Reports: Hx Abdominal Surgery - gastric bypass, Hx Cholecystectomy, Hx Gastric Bypass Surgery - 1994, Hx Tonsillectomy, Hx Tubal Ligation. Denies: Hx Hysterectomy - Immunizations Immunizations up to date: Yes Hx Diphtheria, Pertussis, Tetanus Vaccination: Yes Vertical Provider Document - CONSTITUTIONAL Agree With Documented VS: Yes Notes: PHYSICAL EXAMINATION: GENERAL: Well-appearing, well-nourished and in no acute distress. A&Ox4. Answers questions appropriately. LUNGS: Breath sounds clear to auscultation bilaterally and equal. No wheezes rales or rhonchi. HEART: Regular rate and rhythm without murmurs, rubs, gallops. Musculoskeletal: Lt foot/ankle: + mild swelling dorsal foot. No ecchymosis, deformity, or erythema. FROM to passive/active. Strength 5+/5. N/V intact distal. + tenderness to the dorsal foot. No ankle tenderness. Achilles i ntact. Extremities: No cyanosis, clubbing, or edema b/l. Peripheral pulses 2+. Capillary refill less than 3 seconds. NEUROLOGICAL: Normal speech, limping gait. Normal sensory, motor exams. Cr anial nerves grossly intact. PSYCH: Normal mood, normal affect. SKIN: Warm, Dry, normal turgor, no rashes or lesions noted. - INFECTION CONTROL TRAVEL OUTSIDE OF THE [place] IN LAST 30 DAYS: No Course - Re-evaluation Re-evalutation: 01/25/19 17:44 Patient is an afebrile, well-hydrated, 53-year-old female who presents to the ED with left foot pain which I suspect to be a sprain versus strain. Vitals are acceptable without any significant tachycardia, tachypnea, or hypoxia. PE is otherwise unremarkable for any neurovascular compromise, obvious tendon/ligament rupture, obvious fracture/dislocation, septic joint. X-ray was unremarkable for any acute pathology. Patient is nontoxic-appearing. Patient is able to ambulate and weight-bear although she is limping. No other labs or imaging warranted at this time based on H&P. Conservative measures otherwise for symptoms. Recheck with your PCM in 3-5 days. Consider consult orthopedics. Return to the ED with any worsening/concerning symptoms otherwise as reviewed in discharge. Patient is in agreement. - Vital Signs Vital signs: Temp Pulse Resp BP Pulse Ox 98.7 F 77 18 135/82 H 95 01/25/19 16:00 01/25/19 16:00 01/25/19 16:00 01/25/19 16:00 01/25/19 16:00 Discharge - Discharge Clinical Impression: Left foot pain Condition: Stable Disposition: HOME, SELF-CARE Additional Instructions: Rest, Ice, Compression, Elevation Tylenol/ibuprofen as needed Light stretches daily Strength exercises as able Moist heat and massage may help F/u with your PCP in 3-5 days for a recheck Consider consult(s) with Orthopedics/physical therapy for ongoing/worsening symptoms Return to the ED with any worsening symptoms and/or development of fever, headache, chest pain, palpitations, syncope, shortness of breath, trouble breathing, abdominal pain, n/v/d, muscle weakness/paralysis, numbness/tingling, swelling, redness, or other worsening symptoms that are concerning to you. Forms: Elevated Blood Pressure Referrals: CARLIE YOUNGBLOOD NP [Primary Care Provider] - Follow up as needed [facility] [Provider Group] - Follow up as needed
--- NOTE | 2019-01-25 16:40 | RADIOLOGY REPORT (SQ) ---
EXAM DESCRIPTION: FOOT LEFT COMPLETE COMPLETED DATE/TIME: 01/25/2019 4:29 pm REASON FOR STUDY: left foot pain COMPARISON: None. NUMBER OF VIEWS: Three views. TECHNIQUE: AP, lateral and oblique radiographic images acquired of the left foot. LIMITATIONS: None. FINDINGS: MINERALIZATION: Normal. BONES: No acute fracture or dislocation. No worrisome bone lesions. Small plantar and dorsal calcan eal spurs JOINTS: No effusions. SOFT TISSUES: Mild forefoot soft tissue swelling. No foreign body. OTHER: No other significant finding. IMPRESSION: Mild forefoot soft tissue swelling. No underlying fracture or radiopaque foreign body TECHNICAL DOCUMENTATION: JOB ID: [id number] [employer]- All Rights Reserved Reading location - IP/workstation name: [email or web address]
--- NOTE | 2019-01-25 16:46 | ER Document Report ---
ED General - General Chief Complaint: Dizziness Stated Complaint: FOOT PAIN Time Seen by Provider: 01/25/19 16:19 Primary Care Provider: CARLIE YOUNGBLOOD NP [Primary Care Provider] - Follow up as needed Mode of Arrival: Ambulatory Information source: Patient TRAVEL OUTSIDE OF THE [place] IN LAST 30 DAYS: No - HPI Patient complains to provider of: Left foot, left ankle injury Onset: Other - Last night Onset/Duration: Sudden Quality of pain: Sharp Severity: Severe Pain Level: 5 Associated symptoms: None Exacerbated by: Denies Similar symptoms previously: No Recently seen / treated by doctor: No Notes: 53-year-old female with history of obesity and bilateral bad knees in need of arthroplasty comes in today with left foot and left ankle injury. Last night her knees gave out on her which is happening pretty commonly. Having severe pain in her left ankle and left foot since falling. She is under the care of an orthopedist but they refused to do surgery on her until she loses weight. - Related Data Allergies/Adverse Reactions: No Known Allergies Allergy (Verified 06/14/18 07:46) Past Medical History - General Information source: Patient - Social History Smoking Status: Never Smoker Family History: Reviewed & Not Pertinent, CAD, Hypertension Patient has suicidal ideation: No Patient has homicidal ideation: No - Past Medical History Cardiac Medical History: Denies: Hx Congestive Heart Failure, Hx Hypertension Pulmonary Medical History: Reports: Hx Bronchitis - w/ RAD, Hx Pneumonia Denies: Hx Asthma, Hx Tuberculosis Neurological Medical History: Denies: Hx Seizures Renal/ Medical History: Denies: Hx Peritoneal Dialysis Musculoskeletal Medical History: Reports Hx Arthritis - bilateral knees Psychiatric Medical History: Reports: Hx Bipolar Disorder, Hx Depression Denies: Hx Schizophrenia Past Surgical History: Reports: Hx Abdominal Surgery - gastric bypass, Hx Cholecystectomy, Hx Gastric Bypass Surgery - 1994, Hx Tonsillectomy, Hx Tubal Ligation. Denies: Hx Hysterectomy - Immunizations Immunizations up to date: Yes Hx Diphtheria, Pertussis, Tetanus Vaccination: Yes Review of Systems - Review of Systems Notes: Constitutional: No fevers. No chills. EENT: No eye redness. No eye pain. No ear pain. No sore throat. Cardiovascular: No chest pain. No palpitations. Respiratory: No cough. No shortness of breath. No respiratory distress. Gastrointestinal: No abdominal pain. No nausea, vomiting, or diarrhea. Genitourinary: Atraumatic. No lesions. No pain. No discharge. Musculoskeletal: Positive for left foot swelling and bruising. Positive for left foot and left ankle pain Skin: No rash or lesions. Lymphatic: No swollen lymph nodes. Neurologic: No headache. No syncope. Psychiatric: No suicidal or homicidal ideation. Physical Exam - Vital signs Vitals: Temp Pulse Resp BP Pulse Ox 98.7 F 77 18 135/82 H 95 01/25/19 16:00 01/25/19 16:00 01/25/19 16:00 01/25/19 16:00 01/25/19 16:00 - Notes Notes: General: Well-developed, well-nourished. In no acute distress. Non-toxic appearing. Cardiac: Well-perfused. Regular rate and rhythm. No murmurs, rubs, or gallops. Pulmonary: No respiratory distress. No cyanosis. Bilateral lung fiels are clear to auscultation. Abdominal: Non-distended. Non-rigid. Bowels sounds are present in all four quadrants. No guarding or rebound. HEENT: Head is atraumatic. Conjunctivae not reddened. No tearing. PERRL. EOMI. Orbits atraumatic. No periorbital swelling or erythema. Oropharynx is without erythema, swelling, or exudates. Neck: Supple. No adenopathy. No meningismus. Dermatologic: Warm with good turgor. No rash. Atraumatic. Chest: Atraumatic. No chest wall tenderness to palpation. Musculoskeletal: Left dorsal foot is diffusely bruised and swollen and tender to palpate. No obvious bony deformity. No point bony tenderness. DP and PT pulses are intact bilaterally. Plantar and dorsiflexion is intact. Inversion and eversion is intact. There is quite a bit of tenderness to palpation over the ankle. It appears to be tender above where the foot x-ray ends Genitourinary: Examination deferred Neurologic: No gross neurologic deficits. Psychiatric: Normal mood. Course - Re-evaluation Re-evalutation: 01/25/19 16:47 Final reading on foot x-rays pending. I do the believe the patient needs a dedicated ankle x-ray as her distal tib-fib tenderness seems to go beyond what is covered in the foot x-ray. - Vital Signs Vital signs: Temp Pulse Resp BP Pulse Ox 98.7 F 77 18 135/82 H 95 01/25/19 16:00 01/25/19 16:00 01/25/19 16:00 01/25/19 16:00 01/25/19 16:00 Discharge - Discharge Referrals: CARLIE YOUNGBLOOD NP [Primary Care Provider] - Follow up as needed
--- NOTE | 2019-01-25 17:07 | RADIOLOGY REPORT (SQ) ---
EXAM DESCRIPTION: ANKLE LEFT COMPLETE COMPLETED DATE/TIME: 01/25/2019 4:59 pm REASON FOR STUDY: injury COMPARISON: None. NUMBER OF VIEWS: Three views. TECHNIQUE: AP, lateral, and oblique radiographic images acquired of the left ankle. LIMITATIONS: None. FINDINGS: MINERALIZATION: Normal. BONES: No acute fracture or dislocation. No worrisome bone lesions. JOINTS: No effusions. SOFT TISSUES: No soft tissue swelling. No foreign body. OTHER: No other significant finding. IMPRESSION: NEGATIVE STUDY OF THE LEFT ANKLE. NO RADIOGRAPHIC EVIDENCE OF ACUTE INJURY. TECHNICAL DOCUMENTATION: JOB ID: [id number] [employer]- All Rights Reserved Reading location - IP/workstation name: [email or web address]
[2019-01-25 18:00] VITALS: BP 137/76
== END 2019-01-25 17:59 | disposition home or self-care (01) ==
LOC: ER 15:52
DX: M79.672 Pain in left foot (principal); M79.89 Other specified soft tissue disorders; W19.XXXA Unspecified fall, initial encounter; Y93.89 Activity, other specified; M17.0 Bilateral primary osteoarthritis of knee; Z98.84 Bariatric surgery status
CPT/HCPCS: 99283

== ENCOUNTER 2019-01-27 17:46 | Emergency (ER) | payer BC ==
--- NOTE | 2019-01-27 18:42 | ER Document Report ---
ED Medical Screen (RME) - General Chief Complaint: Dizziness Stated Complaint: FALL/DIZZY Time Seen by Provider: 01/27/19 18:31 Primary Care Provider: CARLIE YOUNGBLOOD NP [Primary Care Provider] - Follow up as needed Mode of Arrival: Wheelchair Information source: Patient, Relative Notes: Patient is a 53-year-old female who presents to the emergency department with c omplaints of dizziness, slurred speech, exhaustion and what she describes as loss of ironer or presser that is been ongoing for 3 days since she started taking a new medication. Family at bedside reports that patient has been acting this way for several weeks with worsening over the last 2 days. Patient currently seen by [facility] and is prescribed 10 mg Percocet tablets that she takes twice daily. 2 days ago she was prescribed oxycodone XR 9 mg tablets that she states she has been taking with significant worsening of her symptoms. She states that she can barely even get out of bed and her family reports that sometimes they are unable to even wake her up. Patient denies any recent illnes. Denies any vomiting or diarrhea but does report mild nausea today. Exam: Patient awake, alert, oriented times. Sap Bw Developer strength strong and equal bilaterally. No facial asymmetry or droop. I have greeted and performed a rapid initial assessment of this patient. A comprehensive ED assessment and evaluation of the patient, analysis of test results and completion of the medical decision making process will be conducted by additional ED providers. Dictation of this chart was performed using voice recognition software; therefore, there may be some unintended grammatical errors. TRAVEL OUTSIDE OF THE [place] IN LAST 30 DAYS: No - Related Data Allergies/Adverse Reactions: No Known Allergies Allergy (Verified 06/14/18 07:46) Past Medical History - Past Medical History Cardiac Medical History: Denies: Hx Congestive Heart Failure, Hx Hypertension Pulmonary Medical History: Reports: Hx Bronchitis - w/ RAD, Hx Pneumonia Denies: Hx Asthma, Hx Tuberculosis Neurological Medical History: Denies: Hx Seizures Renal/ Medical History: Denies: Hx Peritoneal Dialysis Musculoskeltal Medical History: Reports Hx Arthritis - bilateral knees Psychiatric Medical History: Reports: Hx Bipolar Disorder, Hx Depression Denies: Hx Schizophrenia Past Surgical History: Reports: Hx Abdominal Surgery - gastric bypass, Hx Cholecystectomy, Hx Gastric Bypass Surgery - 1994, Hx Tonsillectomy, Hx Tubal Ligation. Denies: Hx Hysterectomy - Immunizations Immunizations up to date: Yes Hx Diphtheria, Pertussis, Tetanus Vaccination: Yes History of Influenza Vaccine for 07/2017 - 12/2017 Season: Unknown Physical Exam - Vital signs Vitals: Temp Pulse Resp BP Pulse Ox 97.7 F 96 19 117/67 95 01/27/19 18:10 01/27/19 18:10 01/27/19 18:10 01/27/19 18:10 01/27/19 18:10 Course - Vital Signs Vital signs: Temp Pulse Resp BP Pulse Ox 97.7 F 96 19 117/67 95 01/27/19 18:10 01/27/19 18:10 01/27/19 18:10 01/27/19 18:10 01/27/19 18:10 Doctor's Discharge - Discharge Referrals: CARLIE YOUNGBLOOD NP [Primary Care Provider] - Follow up as needed
[2019-01-27 19:06] LABS: ABSOLUTE BASOPHILS # (AUTO) 0.1 10^3/uL (0.0-0.2); ABSOLUTE EOSINOPHILS # (AUTO) 0.2 10^3/uL (0.0-0.6); ABSOLUTE LYMPHOCYTES (AUTO) 0.6 10^3/uL (0.5-4.7); ABSOLUTE MONOCYTES (AUTO) 0.5 10^3/uL (0.1-1.4); ABSOLUTE NEUT (AUTO) 4.2 10^3/uL (1.7-8.2); BASOPHILS % (AUTO) 0.9 % (0-2); HEMATOCRIT 37.7 % (36.0-47.0); HEMOGLOBIN 12.6 g/dL (12.0-15.5); LYMPHOCYTES % (AUTO) 10.1 % (13-45); MEAN CORPUSCULAR HEMOGLOBIN 30.1 pg (27.0-33.4); MEAN CORPUSCULAR HGB CONC 33.4 g/dL (32.0-36.0); MEAN CORPUSCULAR VOLUME 90 fl (80-97); MONOCYTES % (AUTO) 9.2 % (3-13); PLATELET COUNT 217 10^3/uL (150-450); RED BLOOD COUNT 4.19 10^6/uL (3.72-5.28); RED CELL DISTRIBUTION WIDTH 15.3 % (11.5-14.0); SEGMENTED NEUTROPHILS % (AUTO) 75.8 % (42-78); TOTAL CELLS COUNTED % (AUTO) 100 %; WHITE BLOOD COUNT 5.6 10^3/uL (4.0-10.5)
[2019-01-27 19:24] LABS: ALANINE AMINOTRANSFERASE 22 U/L (9-52); ALBUMIN 3.5 g/dL (3.5-5.0); ALKALINE PHOSPHATASE 84 U/L (38-126); ANION GAP 5 (5-19); ASPARTATE AMINO TRANSFERASE 33 U/L (14-36); BILIRUBIN,DIRECT 0.3 mg/dL (0.0-0.4); BILIRUBIN,TOTAL 0.3 mg/dL (0.2-1.3); BLOOD UREA NITROGEN 23 mg/dL (7-20); CALCIUM 8.7 mg/dL (8.4-10.2); CARBON DIOXIDE 28 mmol/L (22-30); CHLORIDE 107 mmol/L (98-107); GLUCOSE 101 mg/dL (75-110); POTASSIUM 4.1 mmol/L (3.6-5.0); SODIUM 140.1 mmol/L (137-145); TOTAL PROTEIN 6.2 g/dL (6.3-8.2)
[2019-01-27 19:25] LABS: APPEARANCE,URINE CLEAR; BILIRUBIN,URINE NEGATIVE (NEGATIVE); COLOR,URINE YELLOW; GLUCOSE, URINE NEGATIVE (NEGATIVE); KETONES,URINE TRACE mg/dL (NEGATIVE); LEUKOCYTE ESTERASE,URINE NEGATIVE (NEGATIVE); NITRITE,URINE NEGATIVE (NEGATIVE); PROTEIN,URINE NEGATIVE (NEGATIVE); URINE SPECIFIC GRAVITY 1.028
[2019-01-27] MEDS ORDERED: NALOXONE HCL INJ/PF 0.4 MG/1 ML SDV IM ONE (22:20)
--- NOTE | 2019-01-27 22:25 | ER Document Report ---
ED General - General Chief Complaint: Dizziness Stated Complaint: FALL/DIZZY Time Seen by Provider: 01/27/19 18:31 Primary Care Provider: CARLIE YOUNGBLOOD NP [Primary Care Provider] - Follow up as needed Mode of Arrival: Wheelchair TRAVEL OUTSIDE OF THE [place] IN LAST 30 DAYS: No - HPI Notes: Patient is a 53-year-old female that presents to the emergency department for chief complaint of slurred speech, dizziness and upper extremity computer builder strength loss. Patient states that she has felt dizzy and "in a fog" for the last few weeks. Her symptoms got worse after her pain management physician switched her from Percocet 10 mg 3 times daily to oxycodone XR 9 mg twice daily. This medication change occurred 2 days ago. Patient states that she feels like she is having a hard time walking because she is so dizzy. Family states that she frequently appears tired and can be difficult to wake up when she is sleeping. She denies any unilateral numbness or facial weakness. She denies any confusion or disorientation. She denies history of stroke in the past. Patient did take her morning oxycodone but has not taken her evening dose. She states she is starting to feel better since being in the ER. Past Medical History: Reviewed in chart Past Surgical History: Reviewed in chart Social History: Denies drugs alcohol and tobacco Family History: Reviewed and noncontributory for presenting illness Allergies: Reviewed, see documented allergy list. REVIEW OF SYSTEMS: CONSTITUTIONAL : No fever No chills No diaphoresis No recent illness EENT: No vision changes No congestion No sore throat CARDIOVASCULAR: No chest pain No palpitations RESPIRATORY: No shortness of breath No cough No difficulty breathing GASTROINTESTINAL: No abdominal pain No nausea No vomiting No diarrhea GENITOURINARY: No dysuria No hematuria No difficulty urinating MUSCULOSKELETAL: No back pain No leg pain No arm pain SKIN: No rashes No lesions LYMPHATIC: No swollen, enlarged glands. NEUROLOGICAL: No lightheadedness No headache weakness No paresthesias Dizziness PSYCHIATRIC: No anxiety No depression PHYSICAL EXAMINATION: Vital signs reviewed, nursing noted reviewed. GENERAL: Appears intoxicated, obese and in no acute distress. HEAD: Atraumatic, normocephalic. EYES: Pupils +1, reactive symmetric bilaterally, extraocular movements intact, sclera anicteric, conjunctiva are normal. ENT: nares patent, oropharynx clear without exudates. Moist mucous membranes. NECK: Normal range of motion, supple without lymphadenopathy LUNGS: Breath sounds clear to auscultation bilaterally and equal. No wheezes rales or rhonchi. HEART: Regular rate and rhythm without murmurs ABDOMEN: Soft, nontender, normoactive bowel sounds. No rebound, guarding, or rigidity. No masses appreciated. EXTREMITIES: Nontender, good range of motion, no pitting or edema. NEUROLOGICAL: No focal neurological deficits. Moves all extremities spontaneously Motor and sensory grossly intact on exam. +5/5 strength in all extremities including computer builder. Mildly slurred speech PSYCH: Normal mood, normal affect. SKIN: Warm, Dry, normal turgor, no rashes or lesions noted on exposed skin - Related Data Allergies/Adverse Reactions: No Known Allergies Allergy (Verified 06/14/18 07:46) Past Medical History - General Information source: Patient, Relative - Social History Smoking Status: Unknown if Ever Smoked Chew tobacco use (# tins/day): No Frequency of alcohol use: None Drug Abuse: None Family History: CAD, Hypertension Patient has suicidal ideation: No Patient has homicidal ideation: No - Past Medical History Cardiac Medical History: Denies: Hx Congestive Heart Failure, Hx Hypertension Pulmonary Medical History: Reports: Hx Bronchitis - w/ RAD, Hx Pneumonia Denies: Hx Asthma, Hx Tuberculosis Neurological Medical History: Denies: Hx Seizures Renal/ Medical History: Denies: Hx Peritoneal Dialysis Musculoskeletal Medical History: Reports Hx Arthritis - bilateral knees Psychiatric Medical History: Reports: Hx Bipolar Disorder, Hx Depression Denies: Hx Schizophrenia Past Surgical History: Reports: Hx Abdominal Surgery - gastric bypass, Hx Cholecystectomy, Hx Gastric Bypass Surgery - 1994, Hx Tonsillectomy, Hx Tubal Ligation. Denies: Hx Hysterectomy - Immunizations Immunizations up to date: Yes Hx Diphtheria, Pertussis, Tetanus Vaccination: Yes Physical Exam - Vital signs Vitals: Temp Pulse Resp BP Pulse Ox 97.7 F 96 19 117/67 95 01/27/19 18:10 01/27/19 18:10 01/27/19 18:10 01/27/19 18:10 01/27/19 18:10 Course - Re-evaluation Re-evalutation: 01/27/19 22:25 Vitals reviewed. Nursing notes reviewed. Patient is mildly slurring her speech and appears somnolent and overmedicated. She was given a dose of Narcan for medication reversal. Patient's lab work shows no electrolyte derangements. Her renal function is appropriate. She has no signs of infection including a normal urinalysis and no leukocytosis. She is not anemic. She has no focal neurologic deficits to suggest stroke as a cause of symptoms. Laboratory 01/27/19 01/27/19 01/27/19 18:53 18:53 19:06 WBC 5.6 RBC 4.19 Hgb 12.6 Hct 37.7 MCV 90 MCH 30.1 MCHC 33.4 RDW 15.3 H Plt Count 217 Seg Neutrophils % 75.8 Lymphocytes % 10.1 L Monocytes % 9.2 Eosinophils % 4.0 Basophils % 0.9 Absolute Neutrophils 4.2 Absolute Lymphocytes 0.6 Absolute Monocytes 0.5 Absolute Eosinophils 0.2 Absolute Basophils 0.1 Sodium 140.1 Potassium 4.1 Chloride 107 Carbon Dioxide 28 Anion Gap 5 BUN 23 H Creatinine 0.81 Est GFR ( Amer) > 60 Est GFR (Non-Af Amer) > 60 Glucose 101 Calcium 8.7 Total Bilirubin 0.3 Direct Bilirubin 0.3 Neonat Total Bilirubin Not Reportable Neonat Direct Bilirubin Not Reportable Neonat Indirect Bili Not Reportable AST 33 ALT 22 Alkaline Phosphatase 84 Total Protein 6.2 L Albumin 3.5 Urine Color YELLOW Urine Appearance CLEAR Urine pH 5.0 Ur Specific [place] 1.028 Urine Protein NEGATIVE Urine Glucose (UA) NEGATIVE Urine Ketones TRACE H Urine Blood NEGATIVE Urine Nitrite NEGATIVE Urine Bilirubin NEGATIVE Urine Urobilinogen 2.0 H Ur Leukocyte Esterase NEGATIVE Urine WBC (Auto) 1 Urine RBC (Auto) 0 Urine Bacteria (Auto) 1+ Squamous Epi Cells Auto 1 Urine Mucus (Auto) RARE Urine Ascorbic Acid NEGATIVE 01/27/19 22:42 Patient reevaluated after Narcan and has normal speech. Pupils now 2+ and more reactive bilaterally. Patient was able to ambulate to the bathroom and back wi thout any ataxia or difficulty. She states she is feeling much better. Family states this is the most awake they have seen her in the last few weeks. She is happy and states it felt like a "eraser" dissolved her symptoms after Narcan. Patient was counseled on decreasing her home opiates and following closely with her pain management physician. She is stable at discharge. - Vital Signs Vital signs: Temp Pulse Resp BP Pulse Ox 97.7 F 96 19 117/67 95 01/27/19 18:10 01/27/19 18:10 01/27/19 18:10 01/27/19 18:10 01/27/19 18:10 - Laboratory Result Diagrams: 01/27/19 18:53 01/27/19 18:53 Laboratory results interpreted by me: 01/27/19 01/27/19 01/27/19 18:53 18:53 19:06 RDW 15.3 H Lymphocytes % 10.1 L BUN 23 H Total Protein 6.2 L Urine Ketones TRACE H Urine Urobilinogen 2.0 H Discharge - Discharge Clinical Impression: Medication reaction Qualifiers: Encounter type: initial encounter Qualified Code(s): T50.905A - Adverse effect of unspecified drugs, medicaments and biological substances, initial encounter Condition: Stable Disposition: HOME, SELF-CARE Instructions: Medication Side Effects ([facility]) Additional Instructions: Please return to the emergency department if you have any worsening, or concern of your symptoms. Please return to the emergency department if you develop chest pain, difficulty breathing, severe abdominal pain, or ongoing vomiting. Please follow-up with your primary care physician in 2-3 days and any other recommended physicians. If prescribed, take all medications as directed. If you have any questions or concerns do not hesitate to return the emergency department for evaluation. Your symptoms are likely related to too much opiate class medications. Please review your medications and symptoms with your pain management physician in the next 1-2 days. Referrals: CARLIE YOUNGBLOOD NP [Primary Care Provider] - Follow up as needed
[2019-01-27 22:48] VITALS: BP 116/65
== END 2019-01-27 22:57 | disposition home or self-care (01) ==
LOC: ER 17:46
DX: R42 Dizziness and giddiness (principal); R47.81 Slurred speech; R53.1 Weakness; T50.905A Adverse effect of unspecified drugs, medicaments and biological substances, initial encounter; Z79.891 Long term (current) use of opiate analgesic
CPT/HCPCS: 99284; 96372; 36415; 85025; 80053; 81001; J2310

== ENCOUNTER 2019-04-04 01:30 | Emergency (ER) | payer BC ==
--- NOTE | 2019-04-04 02:18 | RADIOLOGY REPORT (SQ) ---
EXAM DESCRIPTION: XR FOOT 3 OR MORE VIEWS COMPLETED DATE/TME: 04/04/2019 00:00 CLINICAL HISTORY: 53 years, Female, injury COMPARISON: 01/25/2019 left foot NUMBER OF VIEWS: 3 TECHNIQUE: 3 view left foot LIMITATIONS: None. FINDINGS: Osteopenia. Negative for acute fracture or dislocation. Small calcaneal spurs. Diffuse soft tissue swelling IMPRESSION: Soft tissue swelling with no acute fracture. copyright 2010 [employer]- All Rights Reserved
[2019-04-04] MEDS ORDERED: KETOROLAC TROMETHAMINE 60 MG/2 ML SDV IM ONE (02:40)
--- NOTE | 2019-04-04 02:44 | ER Document Report ---
ED General - General Chief Complaint: Foot Injury Stated Complaint: LEFT FOOT PAIN Time Seen by Provider: 04/04/19 02:01 Primary Care Provider: CARLIE YOUNGBLOOD NP [Primary Care Provider] - Follow up as needed Notes: Patient is a 53-year-old female who presents with complaints of 1 week of left midfoot pain. The patient states that she fell and injured her foot 8 weeks ago, was wearing a walking boot and that the area healed but 1 week ago she fell again injuring herself in the exact same pattern. Notes a dull, throbbing, constant, severe pain to the mid dorsum of the left foot. Walking or touching the area worsens the pain. Has been taking ibuprofen with no significant improvement in the pain. Has not seen her primary doctor regarding today's concerns. Denies any weakness, numbness or discoloration of the foot. TRAVEL OUTSIDE OF THE [place] IN LAST 30 DAYS: No - Related Data Allergies/Adverse Reactions: No Known Allergies Allergy (Verified 06/14/18 07:46) Past Medical History - General Information source: Patient - Social History Smoking Status: Never Smoker Chew tobacco use (# tins/day): No Frequency of alcohol use: None Drug Abuse: None Lives with: Family Family History: CAD, Hypertension Patient has suicidal ideation: No Patient has homicidal ideation: No - Past Medical History Cardiac Medical History: Denies: Hx Congestive Heart Failure, Hx Hypertension Pulmonary Medical History: Reports: Hx Bronchitis - w/ RAD, Hx Pneumonia Denies: Hx Asthma, Hx Tuberculosis Neurological Medical History: Denies: Hx Seizures Renal/ Medical History: Denies: Hx Peritoneal Dialysis Musculoskeletal Medical History: Reports Hx Arthritis - bilateral knees Psychiatric Medical History: Reports: Hx Bipolar Disorder, Hx Depression Denies: Hx Schizophrenia Past Surgical History: Reports: Hx Abdominal Surgery - gastric bypass, Hx Cholecystectomy, Hx Gastric Bypass Surgery - 1994, Hx Tonsillectomy, Hx Tubal Ligation. Denies: Hx Hysterectomy - Immunizations Immunizations up to date: Yes Hx Diphtheria, Pertussis, Tetanus Vaccination: Yes Review of Systems - Review of Systems Notes: Constitutional: Negative for fever. Eyes: Negative for visual changes. ENT: Negative for facial injury Cardiovascular: Negative for chest injury. Respiratory: Negative for shortness of breath. Gastrointestinal: Negative for abdominal injury. Genitourinary: Negative for genital injury Musculoskeletal: Positive for left foot injury Skin: Negative for laceration/abrasions. Neurological: Negative for head injury. Physical Exam - Vital signs Vitals: Temp Pulse Resp BP Pulse Ox 97.6 F 82 20 126/80 H 94 04/04/19 01:35 04/04/19 01:35 04/04/19 01:35 04/04/19 01:35 04/04/19 01:35 Interpretation: Normal Notes: PHYSICAL EXAMINATION: GENERAL: Well-appearing, well-nourished and in no acute distress. HEAD: Atraumatic, normocephalic. EYES: sclera anicteric, conjunctiva are normal. ENT: Moist mucous membranes. NECK: Normal range of motion LUNGS: Normal work of breathing HEART: 2+ DP pulses bilaterally EXTREMITIES: Mild swelling to the mid dorsum of the left foot. No swelling to the lateral medial malleoli on the left. Full dorsi and plantar flexion of the left ankle. NEUROLOGICAL: No focal neurological deficits. Moves all extremities spontaneously and on command. PSYCH: Normal mood, normal affect. SKIN: Warm, Dry, normal turgor, no rashes or lesions noted. Course - Re-evaluation Re-evalutation: 04/04/19 02:41 No evidence of a septic joint, gout flare, dislocation, or fracture on exam and imaging. Vitals wnl. At this time, I do not see an indication for labs or further imaging. At this time will discharge with return precautions and follow-up recommendations. Verbal discharge instructions given a the bedside and opportunity for questions given. Medication warnings reviewed. Patient is in agreement with this plan and has verbalized understanding of return precautions and the need for primary care follow-up in the next 24-72 hours. - Vital Signs Vital signs: Temp Pulse Resp BP Pulse Ox 97.6 F 82 20 126/80 H 94 04/04/19 01:35 04/04/19 01:35 04/04/19 01:35 04/04/19 01:35 04/04/19 01:35 - Diagnostic Test Radiology reviewed: Image reviewed, Reports reviewed Radiology results interpreted by me: 04/04/19 02:41 Left foot x-ray: No acute fracture or dislocation Discharge - Discharge Clinical Impression: Left foot pain, Swelling of left foot Condition: Good Disposition: HOME, SELF-CARE Additional Instructions: Your x-ray does not show any acute fracture today. You likely have a soft tissue injury. You should continue to take anti-inflammatories such as ibuprofen 800 mg every 6 hours. Continue to apply ice to the area is much your able. Please follow-up with your primary care physician if you do not have improving your symptoms in the next 1-2 weeks. Please return immediately if you develop weakness, numbness, spreading redness from the area, or any other symptoms that are concerning to you. Prescriptions: Ibuprofen [Ibu] 800 mg PO Q8HP PRN #30 tablet PRN Reason: Referrals: CARLIE YOUNGBLOOD NP [Primary Care Provider] - Follow up as needed
[2019-04-04 04:07] VITALS: BP 107/65
== END 2019-04-04 04:15 | disposition home or self-care (01) ==
LOC: ER 01:30
DX: M79.672 Pain in left foot (principal); M79.89 Other specified soft tissue disorders; W18.30XA Fall on same level, unspecified, initial encounter; Z91.81 History of falling; Z98.84 Bariatric surgery status; Z90.49 Acquired absence of other specified parts of digestive tract; Z98.51 Tubal ligation status
CPT/HCPCS: 99283; 96372; 73630; J1885

== ENCOUNTER 2019-07-01 14:06 | Emergency (ER) | payer BC ==
--- NOTE | 2019-07-01 17:04 | ER Document Report ---
ED Medical Screen (RME) - General Chief Complaint: Edema Stated Complaint: LEG/FEET SWELLING Time Seen by Provider: 07/01/19 16:55 Notes: 53-year-old female with major depressive disorder and bipolar presents to the emergency department with bilateral lower extremity edema x3 days. Patient states that this has never happened to her before. Patient denies any dyspnea on exertion, denies any cardiac history, stated she had some heartburn yesterday but no chest pain, denies lower extremity pain. EXAM: Well-appearing in no acute distress, regular rate cardiac rhythm, lungs clear to auscultation in all scruggs, no rales heard, bilateral lower extremity 1+ BLE pitting edema up to the level of the knees I have greeted and performed a rapid initial assessment of this patient. A comprehensive ED assessment and evaluation of the patient, analysis of test results and completion of medical decision making process will be conducted by an additional ED providers. TRAVEL OUTSIDE OF THE [place] IN LAST 30 DAYS: No - Related Data Allergies/Adverse Reactions: No Known Allergies Allergy (Verified 06/14/18 07:46) Past Medical History - Social History Chew tobacco use (# tins/day): No Frequency of alcohol use: None Drug Abuse: None - Past Medical History Cardiac Medical History: Denies: Hx Congestive Heart Failure, Hx Hypertension Pulmonary Medical History: Reports: Hx Bronchitis - w/ RAD, Hx Pneumonia Denies: Hx Asthma, Hx Tuberculosis Neurological Medical History: Denies: Hx Seizures Renal/ Medical History: Denies: Hx Peritoneal Dialysis Musculoskeltal Medical History: Reports Hx Arthritis - bilateral knees Psychiatric Medical History: Reports: Hx Bipolar Disorder, Hx Depression Denies: Hx Schizophrenia Past Surgical History: Reports: Hx Abdominal Surgery - gastric bypass, Hx Cholecystectomy, Hx Gastric Bypass Surgery - 1994, Hx Tonsillectomy, Hx Tubal Ligation. Denies: Hx Hysterectomy - Immunizations Immunizations up to date: Yes Hx Diphtheria, Pertussis, Tetanus Vaccination: Yes History of Influenza Vaccine for 07/2017 - 12/2017 Season: Unknown Physical Exam - Vital signs Vitals: Temp Pulse Resp BP Pulse Ox 97.9 F 79 20 118/97 H 94 07/01/19 14:22 07/01/19 14:22 07/01/19 14:22 07/01/19 14:22 07/01/19 14:22 Course - Vital Signs Vital signs: Temp Pulse Resp BP Pulse Ox 97.9 F 79 20 118/97 H 94 07/01/19 14:22 07/01/19 14:22 07/01/19 14:22 07/01/19 14:22 07/01/19 14:22
[2019-07-01 17:58] LABS: ABSOLUTE EOSINOPHILS # (AUTO) 0.2 10^3/uL (0.0-0.6); ABSOLUTE LYMPHOCYTES (AUTO) 0.6 10^3/uL (0.5-4.7); ABSOLUTE MONOCYTES (AUTO) 0.4 10^3/uL (0.1-1.4); ABSOLUTE NEUT (AUTO) 1.7 10^3/uL (1.7-8.2); BASOPHILS % (AUTO) 1.2 % (0-2); EOSINOPHILS % (AUTO) 6.4 % (0-6); HEMATOCRIT 37.2 % (36.0-47.0); HEMOGLOBIN 12.1 g/dL (12.0-15.5); LYMPHOCYTES % (AUTO) 21.5 % (13-45); MEAN CORPUSCULAR HGB CONC 32.6 g/dL (32.0-36.0); MEAN CORPUSCULAR VOLUME 89 fl (80-97); MONOCYTES % (AUTO) 12.5 % (3-13); PLATELET COUNT 194 10^3/uL (150-450); RED BLOOD COUNT 4.17 10^6/uL (3.72-5.28); RED CELL DISTRIBUTION WIDTH 16.3 % (11.5-14.0); SEGMENTED NEUTROPHILS % (AUTO) 58.4 % (42-78); TOTAL CELLS COUNTED % (AUTO) 100 %; WHITE BLOOD COUNT 2.9 10^3/uL (4.0-10.5)
[2019-07-01 18:00] LABS: ALBUMIN 3.6 g/dL (3.5-5.0); ALKALINE PHOSPHATASE 108 U/L (38-126); ANION GAP 7 (5-19); ASPARTATE AMINO TRANSFERASE 29 U/L (14-36); BILIRUBIN,DIRECT 0.2 mg/dL (0.0-0.4); BILIRUBIN,TOTAL 0.2 mg/dL (0.2-1.3); BLOOD UREA NITROGEN 22 mg/dL (7-20); CARBON DIOXIDE 29 mmol/L (22-30); CHLORIDE 107 mmol/L (98-107); GLUCOSE 92 mg/dL (75-110); POTASSIUM 4.1 mmol/L (3.6-5.0); TOTAL PROTEIN 6.2 g/dL (6.3-8.2)
[2019-07-01 18:12] LABS: NT PRO BNP 87 pg/mL (5-900); TROPONIN I < 0.012 ng/mL
--- NOTE | 2019-07-01 22:28 | ER Document Report ---
HPI - HPI Patient complains to provider of: bilateral leg edema Time Seen by Provider: 07/01/19 16:55 Pain Level: 1 - REPRODUCTIVE Reproductive: DENIES: : - DERM Skin Color: Normal, [place] Past Medical History - Social History Smoking Status: Never Smoker Chew tobacco use (# tins/day): No Frequency of alcohol use: None Drug Abuse: None Family History: CAD, Hypertension Patient has suicidal ideation: No Patient has homicidal ideation: No - Past Medical History Cardiac Medical History: Denies: Hx Congestive Heart Failure, Hx Hypertension Pulmonary Medical History: Reports: Hx Bronchitis - w/ RAD, Hx Pneumonia Denies: Hx Asthma, Hx Tuberculosis Neurological Medical History: Denies: Hx Seizures Renal/ Medical History: Denies: Hx Peritoneal Dialysis Musculoskeletal Medical History: Reports Hx Arthritis - bilateral knees Psychiatric Medical History: Reports: Hx Bipolar Disorder, Hx Depression Denies: Hx Schizophrenia Past Surgical History: Reports: Hx Abdominal Surgery - gastric bypass, Hx Cholecystectomy, Hx Gastric Bypass Surgery - 1994, Hx Tonsillectomy, Hx Tubal Ligation. Denies: Hx Hysterectomy - Immunizations Immunizations up to date: Yes Hx Diphtheria, Pertussis, Tetanus Vaccination: Yes Vertical Provider Document - INFECTION CONTROL TRAVEL OUTSIDE OF THE [place] IN LAST 30 DAYS: No Course - Vital Signs Vital signs: Temp Pulse Resp BP Pulse Ox 97.8 F 58 L 20 126/79 H 100 07/01/19 20:04 07/01/19 20:04 07/01/19 20:04 07/01/19 20:04 07/01/19 20:04 - Laboratory Result Diagrams: 07/01/19 17:12 07/01/19 17:12 Laboratory results interpreted by me: 07/01/19 07/01/19 17:12 17:12 WBC 2.9 L RDW 16.3 H Eos % (Auto) 6.4 H BUN 22 H Est GFR (MDRD) Non-Af 54 L Total Protein 6.2 L - EKG Interpretation by Me EKG shows normal: Sinus rhythm - 69 bpm, no stemi, interpretted by dr irwin Discharge - Discharge Clinical Impression: Bilateral leg edema Condition: Good Disposition: HOME, SELF-CARE Instructions: Edema, Peripheral ([facility]) Additional Instructions: Follow-up with your PCP in 1 to 2 days. Return for any worsening symptoms. tylenol as needed for any pain. take the medication as prescribed. elevate and rest your legs. have your labs rechecked next week as discussed. low salt diet Prescriptions: Furosemide [Lasix 40 mg Tablet] 40 mg PO QAM #7 tablet Referrals: TAWANNA JAQUEZ MD [Primary Care Provider] - Follow up as needed
--- NOTE | 2019-07-01 23:26 | RADIOLOGY REPORT (SQ) ---
EXAM DESCRIPTION: XR CHEST 2 VIEWS COMPLETED DATE/TME: 07/01/2019 22:29 CLINICAL HISTORY: edema COMPARISON: 10/05/2018 FINDINGS: Frontal and lateral views of the chest. Cardiomegaly. No consolidation, pneumothorax, or pleural effusion. Degenerative change of the spine. Upper abdominal soft tissues are unremarkable. IMPRESSION: 1. No acute pulmonary process identified. 2. Cardiomegaly.
[2019-07-02 00:39] VITALS: BP 129/72
--- NOTE | 2019-07-02 18:53 | EKG REPORT ---
SEVERITY:- BORDERLINE ECG - SINUS RHYTHM BORDERLINE T ABNORMALITIES, ANTERIOR LEADS : Confirmed by: Nik Ly 02-Jul-2019 18:52:42
== END 2019-07-02 00:39 | disposition home or self-care (01) ==
LOC: ER 14:06
DX: R60.0 Localized edema (principal); Z98.84 Bariatric surgery status
CPT/HCPCS: 36415; 71046; 80053; 83880; 84484; 85025; 93005; 93010; 99284

== ENCOUNTER → 2019-09-15 | Outpatient (CLI) | payer BC ==
[2019-09-15 11:57] LABS: ABSOLUTE BASOPHILS # (AUTO) 0.1 10^3/uL (0.0-0.2); ABSOLUTE EOSINOPHILS # (AUTO) 0.3 10^3/uL (0.0-0.6); ABSOLUTE LYMPHOCYTES (AUTO) 0.6 10^3/uL (0.5-4.7); ABSOLUTE MONOCYTES (AUTO) 0.4 10^3/uL (0.1-1.4); ABSOLUTE NEUT (AUTO) 2.1 10^3/uL (1.7-8.2); EOSINOPHILS % (AUTO) 9.5 % (0-6); HEMATOCRIT 36.4 % (36.0-47.0); LYMPHOCYTES % (AUTO) 18.7 % (13-45); MEAN CORPUSCULAR HEMOGLOBIN 28.7 pg (27.0-33.4); MEAN CORPUSCULAR VOLUME 87 fl (80-97); MONOCYTES % (AUTO) 10.5 % (3-13); PLATELET COUNT 204 10^3/uL (150-450); RED BLOOD COUNT 4.19 10^6/uL (3.72-5.28); RED CELL DISTRIBUTION WIDTH 14.6 % (11.5-14.0); SEGMENTED NEUTROPHILS % (AUTO) 59.3 % (42-78); TOTAL CELLS COUNTED % (AUTO) 100 %; WHITE BLOOD COUNT 3.5 10^3/uL (4.0-10.5)
[2019-09-15 12:20] LABS: ALBUMIN 3.6 g/dL (3.5-5.0); ALKALINE PHOSPHATASE 88 U/L (38-126); ANION GAP 7 (5-19); ASPARTATE AMINO TRANSFERASE 34 U/L (14-36); BILIRUBIN,DIRECT 0.2 mg/dL (0.0-0.4); BILIRUBIN,TOTAL 0.3 mg/dL (0.2-1.3); BLOOD UREA NITROGEN 19 mg/dL (7-20); CALCIUM 8.9 mg/dL (8.4-10.2); CARBON DIOXIDE 26 mmol/L (22-30); CHLORIDE 109 mmol/L (98-107); CHOLESTEROL 159.61 mg/dL (0-200); GLUCOSE 80 mg/dL (75-110); POTASSIUM 4.2 mmol/L (3.6-5.0); TOTAL PROTEIN 6.6 g/dL (6.3-8.2); TRIGLYCERIDES 75 mg/dL (<150)
[2019-09-15 12:31] LABS: DIRECT LDL 97 mg/dL (<100)
== END ==
LOC: OD 11:11
PROVIDERS: ATTEND Family Medicine Geriatric Medicine
DX: E66.9 Obesity, unspecified (principal); J30.9 Allergic rhinitis, unspecified; E04.1 Nontoxic single thyroid nodule; M19.90 Unspecified osteoarthritis, unspecified site
CPT/HCPCS: 36415; 80053; 80061; 84443; 85025

== ENCOUNTER → 2019-09-15 | Outpatient (CLI) | payer BC ==
--- NOTE | 2019-09-15 17:02 | RADIOLOGY REPORT (SQ) ---
EXAM DESCRIPTION: U/S THYROID/SFT TISS HD NECK COMPLETED DATE/TIME: 09/15/2019 4:32 pm REASON FOR STUDY: E04.1 NONTOXIC SINGLE THYROID NODULE E04.1 NONTOXIC SINGLE THYROID NODULE COMPARISON: None. TECHNIQUE: Dynamic and static cook-scale images acquired of the thyroid gland. Selected additional c olor/power Doppler images recorded. All images stored to PACS. LIMITATIONS: None. FINDINGS: RIGHT LOBE: Normal size, 3.9 x 1.3 x 1.2 cm in size. Homogeneous echotexture. No cystic or solid masses. LEFT LOBE: Normal size, 4.3 x 1.4 x 1.3 cm in size. Homogeneous echotexture. No solid masses. 6 x 4 mm left lower pole thyroid cyst (TI-RADS 1). ISTHMUS: Normal size. Homogeneous echotexture. No cystic or solid masses. OTHER: No other significant finding. IMPRESSION: NORMAL THYROID ULTRASOUND. COMMENT: The [employer] (A[employer]) Thyroid Imaging Reporting And Data System (TI-RADS ) is an ultrasound feature based summed scoring system of risk categorization and management recommen dations for thyroid nodules. TI-RADS assessment categories are as follows: 0 - Incomplete exam: Additional imaging or comparison to prior examinations recommended. 1. - Benign: Fine-needle aspiration or follow-up not routinely recommended in the absence of clinical change. 2. - Not suspicious: Fine-needle aspiration or follow-up not routinely recommended in the absence of clinical change. 3. - Mildly suspicious: Fine-needle aspiration recommended if greater than or equal to 2.5 cm in size . Ultrasound follow-up recommended if greater than or equal to 1.5 cm in size. 4. - Moderately suspicious: Fine-needle aspiration recommended if greater than or equal to 1.5 cm in size. Ultrasound follow-up recommended if greater than or equal to 1.0 cm in size. 5. - Highly suspicious: Fine-needle aspiration recommended if greater than or equal to 1.0 cm in size . Ultrasound follow-up recommended if greater than or equal to 0.5 cm in size. TECHNICAL DOCUMENTATION: JOB ID: [id number] [employer]- All Rights Reserved Reading location - IP/workstation name: [facility]
== END ==
LOC: RAD 15:48
PROVIDERS: ATTEND Family Medicine Geriatric Medicine
DX: E04.1 Nontoxic single thyroid nodule (principal)
CPT/HCPCS: 76536

== ENCOUNTER 2019-09-25 01:34 | Emergency (ER) | payer BC ==
--- NOTE | 2019-09-25 04:12 | ER Document Report ---
ED General - General Chief Complaint: Leg Swelling Stated Complaint: BILATERAL LEG SWELLING Time Seen by Provider: 09/25/19 03:42 Primary Care Provider: JOSE CAREY MD [Primary Care Provider] - Follow up as needed TRAVEL OUTSIDE OF THE [place] IN LAST 30 DAYS: No - Related Data Allergies/Adverse Reactions: No Known Allergies Allergy (Verified 06/14/18 07:46) Past Medical History - Social History Smoking Status: Never Smoker Family History: CAD, Hypertension Patient has suicidal ideation: No Patient has homicidal ideation: No - Past Medical History Cardiac Medical History: Denies: Hx Congestive Heart Failure, Hx Hypertension Pulmonary Medical History: Reports: Hx Bronchitis - w/ RAD, Hx Pneumonia Denies: Hx Asthma, Hx Tuberculosis Neurological Medical History: Denies: Hx Seizures Renal/ Medical History: Denies: Hx Peritoneal Dialysis Musculoskeletal Medical History: Reports Hx Arthritis - bilateral knees Psychiatric Medical History: Reports: Hx Bipolar Disorder, Hx Depression Denies: Hx Schizophrenia Past Surgical History: Reports: Hx Abdominal Surgery - gastric bypass, Hx Cholecystectomy, Hx Gastric Bypass Surgery - 1994, Hx Tonsillectomy, Hx Tubal Ligation. Denies: Hx Hysterectomy - Immunizations Immunizations up to date: Yes Hx Diphtheria, Pertussis, Tetanus Vaccination: Yes Physical Exam - Vital signs Vitals: Temp Pulse Resp BP Pulse Ox 97.7 F 68 16 103/64 95 09/25/19 01:51 09/25/19 01:51 09/25/19 01:51 09/25/19 01:51 09/25/19 01:51 - Notes Notes: Patient presents emerge department planing lower extremity edema this been going on for several months. Seen here in June and treated with 1 week supply of Lasix which seemed to help with the symptoms but then it recurred again. She says the swelling does not get better in the morning when she first gets up. Is any chest pain shortness of breath fevers or cough nausea vomiting or abdominal pain. Patient indicated in June that she was between doctors but has seen her new doctor but indicates that because of all her other medical problems she did not address the issue of lower extremity edema?? Patient indicates the only reason she is here tonight is because her friend cut her hand and she drove her to the hospital Patient with a history is negative for diabetes hypertension or heart disease. She does have bipolar disorder. Social history she does not smoke or drink at all. Medications she is no longer on Lasix Review of systems pertinent positives and negatives in HPI otherwise all the systems were reviewed and acutely negative PHYSICIAN EXAM -vital signs are noted triage note and note from triage reviewed GENERAL: Well-appearing, well-nourished and in _no acute distress HEAD: Atraumatic, normocephalic. EYES: Pupils equal round and reactive to light, extraocular movements intact, sclera anicteric, conjunctiva are normal. ENT: nares patent, oropharynx clear without exudates. Moist mucous membranes. NECK: supple without lymphadenopathy LUNGS: Breath sounds clear to auscultation bilaterally and equal. No wheezes rales or rhonchi. HEART: Regular rate and rhythm without murmurs ABDOMEN: Soft, nontender, normoactive bowel sounds. Morbidly obese EXTREMITIES: She is got +4 edema to the knees. There is no palpable cords. She has venous stasis changes over the anterior tibia is good pulses in the foot and sensation NEUROLOGICAL: No focal neurological deficits. Moves all extremities spon taneously and on command. PSYCH: Normal mood, normal affect. SKIN: Warm, Dry, normal turgor, no rashes or lesions noted. BACK-nontender in the midline Right heart failure dependent edema renal failure Course - Re-evaluation Re-evalutation: 09/25/19 05:29 ED patient is remained stable O2 sats of been good Medical decision making patient presents with chronic lower extremity edema she probably has some component of COPD and right heart failure. Looks well and I think should be discharged home she will be treated with low-dose Lasix and potassium and emphasized the need for her to follow-up with her family doctor in 1 week Dictation was done using voice recognition software. There may be some grammatical errors which are unintentional I discussed results of laboratory findings and diagnostic test with patient/fam rashawn. The treatment plan was explained and I reviewed the discharge instructions with them. Questions were answered. The patient/family verbalizes understanding - Vital Signs Vital signs: Temp Pulse Resp BP Pulse Ox 97.7 F 68 16 103/64 95 09/25/19 01:51 09/25/19 01:51 09/25/19 01:51 09/25/19 01:51 09/25/19 01:51 - Laboratory Result Diagrams: 09/25/19 04:15 09/25/19 04:15 Laboratory results interpreted by me: 09/25/19 09/25/19 04:15 04:15 Hgb 11.7 L Hct 35.8 L RDW 14.7 H [place] % (Auto) 16.4 H Eos % (Auto) 7.8 H Est GFR (MDRD) Non-Af 58 L Albumin 3.4 L - Diagnostic Test Radiology reviewed: Reports reviewed Discharge - Discharge Clinical Impression: Lower extremity edema Disposition: HOME, SELF-CARE Instructions: Dependent Edema ([facility]) Additional Instructions: Please review the discharge instructions, they will tell you about your disease/injury and what you need to return to the ED for Return to the ED if you feel worse or can follow-up with your family doctor Is very important that you follow-up with your family doctor in 3 to 5 days Elevate your legs to 3 times a day Return if you develop any chest pain or shortness of breath by walking around Prescriptions: Furosemide [Lasix 20 mg Tablet] 20 mg PO QAM #30 tablet Potassium Chloride 20 meq PO SARABJIT #30 tab.er.prt Referrals: JOSE CAREY MD [Primary Care Provider] - Follow up as needed
[2019-09-25 04:34] LABS: ABSOLUTE EOSINOPHILS # (AUTO) 0.3 10^3/uL (0.0-0.6); ABSOLUTE LYMPHOCYTES (AUTO) 0.8 10^3/uL (0.5-4.7); ABSOLUTE MONOCYTES (AUTO) 0.7 10^3/uL (0.1-1.4); ABSOLUTE NEUT (AUTO) 2.2 10^3/uL (1.7-8.2); BASOPHILS % (AUTO) 1.2 % (0-2); EOSINOPHILS % (AUTO) 7.8 % (0-6); HEMATOCRIT 35.8 % (36.0-47.0); HEMOGLOBIN 11.7 g/dL (12.0-15.5); LYMPHOCYTES % (AUTO) 19.5 % (13-45); MEAN CORPUSCULAR HEMOGLOBIN 29.1 pg (27.0-33.4); MEAN CORPUSCULAR HGB CONC 32.7 g/dL (32.0-36.0); MEAN CORPUSCULAR VOLUME 89 fl (80-97); MONOCYTES % (AUTO) 16.4 % (3-13); PLATELET COUNT 187 10^3/uL (150-450); RED BLOOD COUNT 4.02 10^6/uL (3.72-5.28); RED CELL DISTRIBUTION WIDTH 14.7 % (11.5-14.0); SEGMENTED NEUTROPHILS % (AUTO) 55.1 % (42-78); TOTAL CELLS COUNTED % (AUTO) 100 %; WHITE BLOOD COUNT 4.1 10^3/uL (4.0-10.5)
--- NOTE | 2019-09-25 04:47 | RADIOLOGY REPORT (SQ) ---
INDICATION: Shortness of breath COMPARISON: None. 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 Lungs are clear without consolidation, atelectasis, mass or edema. There is no pleural effusion. There is no pneumothorax. There are no acute osseous findings. IMPRESSION: Clear lungs.
[2019-09-25 06:16] LABS: ALBUMIN 3.4 g/dL (3.5-5.0); ALKALINE PHOSPHATASE 93 U/L (38-126); ANION GAP 7 (5-19); ASPARTATE AMINO TRANSFERASE 26 U/L (14-36); BILIRUBIN,DIRECT 0.2 mg/dL (0.0-0.4); BILIRUBIN,TOTAL 0.3 mg/dL (0.2-1.3); BLOOD UREA NITROGEN 15 mg/dL (7-20); CALCIUM 8.9 mg/dL (8.4-10.2); CARBON DIOXIDE 30 mmol/L (22-30); CHLORIDE 105 mmol/L (98-107); GLUCOSE 87 mg/dL (75-110); POTASSIUM 3.9 mmol/L (3.6-5.0); TOTAL PROTEIN 6.4 g/dL (6.3-8.2)
[2019-09-25 06:40] VITALS: BP 133/79
== END 2019-09-25 06:40 | disposition home or self-care (01) ==
LOC: ER 01:34
DX: R60.0 Localized edema (principal)
CPT/HCPCS: 36415; 71046; 80053; 85025; 99283

== ENCOUNTER → 2019-10-04 | Outpatient (CLI) | payer BC ==
--- NOTE | 2019-10-04 17:18 | XCELERA REPORT ---
[address] [address] Transthoracic Echocardiogram Report Name: VALDO SANTANA Age: 53 yrs Gender: Female : 1965 Patient Status: Outpatient Patient Location: [facility] Study Date: 10/04/2019 03:14 PM Height: 66 in Weight: 319 lb BSA: 2.4 m2 Reason For Study: CARDIOMEGALY Ordering Physician: JOSE CAREY Performed By: Shoaib Sands Interpretation Summary Min post pericardial effusion, small anterior pericardial fat pad or effusion , and no tamponade feature even if its is peric effusion. Mild calcified ao . root, not dilated. Mild nonstenotic calcific AV with 3 cusps, no no AR. Mild mitral annular calcification,no MS, no MVP and no MR and no LAenlargement, LISANDRO=18mm/m2. No LVH, Normal LVEF 65%, unable to see all segments shayan the basal lateralbut all segments seen contracted normally.No LVDD. [id number], [id number]. TR difficult to sample, unable to derive RVSP, but RH is normal dimension and normal RV function. Diagnosis is not confirmed by echo measurements. MMode/2D Measurements & Calculations RVDd: 3.3 cm LVIDd: 5.5 cm FS: 39.2 % Ao root diam: 2.6 cm IVSd: 0.75 cm LVIDs: 3.4 cm EDV(Teich): Ao root area: LVPWd: 0.84 cm 149.0 ml ESV(Teich): 46.1 ml5.1 cm2 LA dimension: 4.2 cm EF(Teich): 69.0 % LVLd ap4: 7.7 cm SV(MOD-sp4): EDV(MOD-sp4): 58.0 ml 88.0 ml LVLs ap4: 6.2 cm ESV(MOD-sp4): 30.0 ml EF(MOD-sp4): 65.9 % Doppler Measurements & Calculations MV E max garrick: MV P1/2t max garrick: Ao V2 max: LV V1 max P.7 cm/sec 94.5 cm/sec 166.8 cm/sec 7.0 mmHg MV A max garrick: MV P1/2t: 93.6 msec Ao max PG: LV V1 max: 55.5 cm/sec 11.1 mmHg 132.5 cm/sec MV E/A: 1.5 MVA(P1/2t): 2.3 cm2 MV dec slope: 295.6 cm/sec2 MV dec time: 0.24 sec PA V2 max: MV P1/2t-pr_phl: 95.3 cm/sec 93.6 msec PA max P.6 mmHg I WMSI = 1.00 % Normal = 100 Segments Size X - Cannot 1 - Normal 2 - 3 - Akinetic4 - 1-2 small Interpret Hypokinetic Dyskinetic 3-5 moderate 5 - 6-14 large Aneurysmal 15-16 diffuse : JOSE CAREY Andre
== END ==
LOC: SP 14:51
PROVIDERS: ATTEND Family Medicine Geriatric Medicine
DX: I51.7 Cardiomegaly (principal)
CPT/HCPCS: 93306

== ENCOUNTER → 2019-10-23 | Outpatient (CLI) | payer BC ==
[2019-10-23 12:14] LABS: ANION GAP 11 (5-19); BLOOD UREA NITROGEN 18 mg/dL (7-20); CALCIUM 9.6 mg/dL (8.4-10.2); CARBON DIOXIDE 29 mmol/L (22-30); CHLORIDE 104 mmol/L (98-107); GLUCOSE 79 mg/dL (75-110); POTASSIUM 4.3 mmol/L (3.6-5.0)
== END ==
LOC: OD 11:02
PROVIDERS: ATTEND Family Medicine Geriatric Medicine
DX: I51.7 Cardiomegaly (principal); Z79.899 Other long term (current) drug therapy
CPT/HCPCS: 36415; 80048; 83735

== ENCOUNTER 2019-12-10 23:54 | Emergency (ER) | payer BC ==
--- NOTE | 2019-12-11 00:19 | ER Document Report ---
ED Medical Screen (RME) - General Chief Complaint: Allergic Reaction Stated Complaint: POSSIBLE ALLERGIC REACTION Primary Care Provider: ASTRID IRENE MD [Primary Care Provider] - Follow up as needed Notes: Patient is a 54-year-old white female with an unknown past medical history who presents to the emergency department accompanied by her friend with a chief complaint of suspected allergic reaction and itching all over. However on HPI the patient appears confused, cannot find the words that she is trying to express and often speaks and answers questions inappropriately. Her friend states this is not her normal baseline. She reports the last time she saw her normal was last night. Patient has no focal deficits on exam. No drift, normal [id number]-[id number], no facial droop, intact cranial nerves. I have treated and performed a rapid initial assessment of this patient. A comprehensive ED assessment and evaluation of the patient, analysis of test results and completion of medical decision making process will be conducted by additional ED providers. TRAVEL OUTSIDE OF THE [place] IN LAST 30 DAYS: No - Related Data Allergies/Adverse Reactions: No Known Allergies Allergy (Verified 06/14/18 07:46) Past Medical History - Past Medical History Cardiac Medical History: Denies: Hx Congestive Heart Failure, Hx Hypertension Pulmonary Medical History: Reports: Hx Bronchitis - w/ RAD, Hx Pneumonia Denies: Hx Asthma, Hx Tuberculosis Neurological Medical History: Denies: Hx Seizures Renal/ Medical History: Denies: Hx Peritoneal Dialysis Musculoskeltal Medical History: Reports Hx Arthritis - bilateral knees Psychiatric Medical History: Reports: Hx Bipolar Disorder, Hx Depression Denies: Hx Schizophrenia Past Surgical History: Reports: Hx Abdominal Surgery - gastric bypass, Hx Cholecystectomy, Hx Gastric Bypass Surgery - 1994, Hx Tonsillectomy, Hx Tubal Ligation. Denies: Hx Hysterectomy - Immunizations Immunizations up to date: Yes Hx Diphtheria, Pertussis, Tetanus Vaccination: Yes Physical Exam - Vital signs Vitals: Temp Pulse Resp BP Pulse Ox 98.2 F 87 16 127/79 H 99 12/10/19 23:58 12/10/19 23:58 12/10/19 23:58 12/10/19 23:58 12/10/19 23:58 Course - Vital Signs Vital signs: Temp Pulse Resp BP Pulse Ox 98.2 F 87 16 127/79 H 99 12/10/19 23:58 12/10/19 23:58 12/10/19 23:58 12/10/19 23:58 12/10/19 23:58 Doctor's Discharge - Discharge Referrals: ASTRID IRENE MD [Primary Care Provider] - Follow up as needed
[2019-12-11 01:04] LABS: ABSOLUTE BASOPHILS # (AUTO) 0.1 10^3/uL (0.0-0.2); ABSOLUTE EOSINOPHILS # (AUTO) 0.2 10^3/uL (0.0-0.6); ABSOLUTE LYMPHOCYTES (AUTO) 1.1 10^3/uL (0.5-4.7); ABSOLUTE MONOCYTES (AUTO) 0.9 10^3/uL (0.1-1.4); ABSOLUTE NEUT (AUTO) 3.7 10^3/uL (1.7-8.2); BASOPHILS % (AUTO) 1.2 % (0-2); EOSINOPHILS % (AUTO) 3.8 % (0-6); HEMATOCRIT 41.4 % (36.0-47.0); HEMOGLOBIN 13.5 g/dL (12.0-15.5); LYMPHOCYTES % (AUTO) 17.8 % (13-45); MEAN CORPUSCULAR HEMOGLOBIN 27.6 pg (27.0-33.4); MEAN CORPUSCULAR HGB CONC 32.5 g/dL (32.0-36.0); MEAN CORPUSCULAR VOLUME 85 fl (80-97); MONOCYTES % (AUTO) 14.3 % (3-13); PLATELET COUNT 248 10^3/uL (150-450); RED BLOOD COUNT 4.87 10^6/uL (3.72-5.28); SEGMENTED NEUTROPHILS % (AUTO) 62.9 % (42-78); TOTAL CELLS COUNTED % (AUTO) 100 %
[2019-12-11 01:13] LABS: INTERNATIONAL RATION (INR) 1.12; PROTHROMBIN TIME 14.5 SEC (11.4-15.4)
[2019-12-11 01:14] LABS: PARTIAL THROMBOPLASTIN TIME 30.6 SEC (23.5-35.8)
--- NOTE | 2019-12-11 01:18 | RADIOLOGY REPORT (SQ) ---
EXAM DESCRIPTION: XR CHEST 2 VIEWS COMPLETED DATE/TME: 12/11/2019 00:17 CLINICAL HISTORY: 54 years, Female, AMS COMPARISON: September 25, 2019 NUMBER OF VIEWS: 2 TECHNIQUE: LIMITATIONS: None. FINDINGS: Cardiomediastinal silhouette is prominent. Chronic parenchymal lung change. No acute process or adverse change. Mild age-appropriate osteoarthritis IMPRESSION: Chronic change. No acute process or adverse change copyright 2010 [employer]- All Rights Reserved
[2019-12-11 01:22] LABS: ALBUMIN 4.1 g/dL (3.5-5.0); ALKALINE PHOSPHATASE 103 U/L (38-126); ANION GAP 12 (5-19); ASPARTATE AMINO TRANSFERASE 39 U/L (14-36); BILIRUBIN,DIRECT 0.3 mg/dL (0.0-0.4); BILIRUBIN,TOTAL 0.3 mg/dL (0.2-1.3); BLOOD UREA NITROGEN 12 mg/dL (7-20); CALCIUM 9.8 mg/dL (8.4-10.2); CARBON DIOXIDE 24 mmol/L (22-30); CHLORIDE 106 mmol/L (98-107); CREATINE KINASE 129 U/L (30-135); GLUCOSE 98 mg/dL (75-110); POTASSIUM 3.8 mmol/L (3.6-5.0); TOTAL PROTEIN 7.5 g/dL (6.3-8.2)
[2019-12-11] MEDS ORDERED: METHYLPREDNISOLONE INJ 125 MG/2 ML SDV IV ONE (01:22)
[2019-12-11] MEDS ORDERED: FAMOTIDINE INJ/PF 20 MG/2 ML SDV IV ONE (01:22)
[2019-12-11] MEDS ORDERED: LORATADINE 10 MG TABLET PO ONE (01:23)
[2019-12-11] MEDS ORDERED: FAMOTIDINE 20 MG TABLET PO ONE (01:23)
--- NOTE | 2019-12-11 01:23 | RADIOLOGY REPORT (SQ) ---
EXAM DESCRIPTION: Noncontrast CT head CLINICAL HISTORY: 54 years Female AMS TECHNIQUE: Noncontrast CT head. All CT scans at this facility use dose modulation, iterative reconstruction, and/or weight based dosing when appropriate to reduce radiation dose to as low as reasonably achievable. COMPARISON: None. FINDINGS: Technically limited by motion artifact. [place] matter, white matter, ventricles, and cisterns are within normal limits. No acute hemorrhage or mass effect. Visualized portions of paranasal sinuses and mastoids are clear. Visualized portions of the calvarium are within normal limits. IMPRESSION: 1. No acute intracranial findings. If there is clinical concern for acute stroke, consider MRI brain as a more sensitive evaluation.
--- NOTE | 2019-12-11 01:29 | ER Document Report ---
Entered by GARTH JANSEN SCRIBE 12/11/19 0052 Acting as scribe for:TJ CORREA IV, MD ED General - General Chief Complaint: Altered Mental Status Stated Complaint: POSSIBLE ALLERGIC REACTION Time Seen by Provider: 12/11/19 00:43 Primary Care Provider: ASTRID IRENE MD [Primary Care Provider] - Follow up as needed Mode of Arrival: Wheelchair Information source: Patient Notes: This 54 year old female patient with a history of incontinence presents to the ED today with complaints of a suspected allergic reaction and itching all over that started x2 days ago. Patient states that after she woke up on 12/09/19 from a long night of work the day before, she started itching all over and feels like her eyes are "bloodshot and itchy". Patient states that it feels like something is "crawling under my skin". Patient reports that she took x4 Benadryl instead of her usual x2 and that "it didn't even make a dent". Patient states that she doesn't know what triggered the itching, but states "the only thing different that was brought into the house were tulips". Patient notes that she has never had reaction like this before. TRAVEL OUTSIDE OF THE [place] IN LAST 30 DAYS: No - Related Data Allergies/Adverse Reactions: No Known Allergies Allergy (Verified 06/14/18 07:46) Home Medications: lexapro 20 mg qday. cipro 500 mg q12h. zyrtec 10 mg qday. benadryl 50 mg prn. inderal 10 mg bid. detrol LA 4 mg. respiradone 3 mg bid Past Medical History - General Information source: Patient, [facility] Records - Social History Smoking Status: Never Smoker Cigarette use (# per day): No Chew tobacco use (# tins/day): No Smoking Education Provided: No Family History: Reviewed & Not Pertinent, CAD, Hypertension Patient has suicidal ideation: No Patient has homicidal ideation: No Pulmonary Medical History: Reports: Hx Bronchitis - w/ RAD, Hx Pneumonia Musculoskeletal Medical History: Reports Hx Arthritis - bilateral knees Psychiatric Medical History: Reports: Hx Bipolar Disorder, Hx Depression Past Surgical History: Reports: Hx Cholecystectomy, Hx Gastric Bypass Surgery - 1994, Hx Tonsillectomy, Hx Tubal Ligation - Immunizations Immunizations up to date: Yes Hx Diphtheria, Pertussis, Tetanus Vaccination: Yes Review of Systems - Review of Systems Constitutional: See HPI, Other - Itching all over EENT: See HPI, Other - Bloodshot eyes and itchiness Cardiovascular: No symptoms reported Respiratory: No symptoms reported Gastrointestinal: No symptoms reported Genitourinary: No symptoms reported Female Genitourinary: No symptoms reported Musculoskeletal: No symptoms reported Skin: No symptoms reported Hematologic/Lymphatic: No symptoms reported Neurological/Psychological: No symptoms reported -: Yes All other systems reviewed and negative Physical Exam - Vital signs Vitals: Temp Pulse Resp BP Pulse Ox 98.2 F 87 16 127/79 H 99 12/10/19 23:58 12/10/19 23:58 12/10/19 23:58 12/10/19 23:58 12/10/19 23:58 - General General appearance: Anxious - HEENT Head: Normocephalic, Atraumatic Eyes: Normal Conjunctiva: Normal. No: Injected Pupils: PERRL - Respiratory Respiratory status: No respiratory distress Chest status: Nontender Breath sounds: Normal Chest palpation: Normal - Cardiovascular Rhythm: Regular Heart sounds: Normal auscultation Murmur: No Friction rub: No Gallop: None auscultated - Abdominal Inspection: Normal Distension: No distension Bowel sounds: Normal Tenderness: Nontender - Abdomen soft Organomegaly: No organomegaly - Back Back: Normal, Nontender - Extremities General upper extremity: Normal inspection General lower extremity: Normal inspection - Neurological Neuro grossly intact: Yes - Psychological Associated symptoms: Anxious - Skin Skin Temperature: Warm Skin Moisture: Dry Skin Color: Normal Skin irregularity: negative: Rash Course - Re-evaluation Re-evalutation: 12/11/19 03:02 Results of ED MSE discussed with patient. Patient states she is feeling better at this time. All questions were answered prior to discharge. Emergency signs and symptoms, reasons to return to the emergency department discussed with patient. Patient is alert and oriented x4 at time of discharge. - Vital Signs Vital signs: Temp Pulse Resp BP Pulse Ox 98.2 F 87 21 H 131/99 H 100 12/10/19 23:58 12/10/19 23:58 12/11/19 02:47 12/11/19 01:01 12/11/19 02:47 - Laboratory Result Diagrams: 12/11/19 00:49 12/11/19 00:49 Laboratory results interpreted by me: 02/17/20 02/17/20 00:49 00:49 RDW 15.0 H [place] % (Auto) 14.3 H Est GFR (MDRD) Non-Af 58 L AST 39 H Discharge - Discharge Clinical Impression: Allergic reaction Qualifiers: Encounter type: initial encounter Qualified Code(s): T78.40XA - Allergy, unspecified, initial encounter Condition: Good Disposition: HOME, SELF-CARE Additional Instructions: Return to the Emergency Department without delay if any worse. HOME CARE INSTRUCTIONS & INFORMATION: Thank you for choosing us for your medical needs. We hope you're satisfied with the care you received. After you leave, you must properly care for your problem and, at the same time, observe its progress. Any condition can change. Some illnesses can change rapidly over hours or days. If your condition worsens, return to the Emergency Department or see your physician promptly. ABOUT YOUR X-RAYS AND EKG'S: If you had an EKG or X-rays taken, they have been read by the Emergency Physician. The X-rays and EKG's will also be read by a Radiologist or [employer] within 24 hours. If discrepancies are noted, you will be notified by telephone. Please be certain the ED has a correct telephone number & address where you can be reached. Also, realize that some fractures or abnormalities do not show up on initial X-rays. If your symptoms continue, see your physician. ABOUT YOUR LABORATORY TEST: If you had laboratory tests, the results have been reviewed by the Emergency Physician. Some test results (for example cultures) may not be available for several days. You will be contacted if any test result shows you need additional treatment. Please be certain the ED has a correct t [employer] number and address where you can be reached. ABOUT YOUR MEDICATIONS: You will receive instructions on how to take your medicine on the prescription label you receive. Additional information may be provided by the Pharmacy. If you have questions afterwards, call the ED for clarification or further instructions. Some prescribed medications may cause drowsiness. Do not perform tasks such as driving a car or operating machinery without consulting your Pharmacist. If you feel you need a refill of pain medication, your condition will need re-evaluation. Please do not call for a refill of any medication. ABOUT YOUR SIGNATURE: Signature of this document acknowledges to followin. Understanding that you received emergency treatment and that you may be released before al medical problems are known or treated. Please be certain the ED has a correct phone number & address where you can be reached. 2. Acknowledgement that you will arrange for follow-up care as recommended. 3. Authorization for the Emergency Physician to provide information to your follow-up Physician in order to maximize your care. AT ANY TIME, IF YOUR SYMPTOMS CHANGE SIGNIFICANTLY OR WORSEN OR YOU DEVELOP NEW SYMPTOMS, RETURN TO THE EMERGENCY DEPARTMENT IMMEDIATELY FOR RE-EVALUATION. OUR GOAL IS TO PROVIDE EXCELLENT MEDICAL CARE! WE HOPE THAT WE HAVE MET YOUR EXPECTATIONS DURING YOUR EMERGENCY DEPARTMENT VISIT AND THAT YOU FEEL YOU HAVE RECEIVED EXCELLENT CARE! Acute Allergic Reaction Your symptoms are due to an allergic reaction. Allergy can cause hives, swelling of the hands, feet, and face, hoarseness, and difficulty swallowing or breathing. It may be due to exposure to medication, animal dander, foods, infection, or insect bites. Medication is a common cause, even when prior use of this same medication caused no problems. Acute treatment may include adrenalin and antihistamines. Usually, the specific allergic agent can't be identified unless repeated episodes occur. Home treatment includes the following: (1) Stop any suspicious medications. This will be discussed with you. (2) Oral antihistamines for the next four to five days. Example, diphenhydramine (Benadryl) every four hours. (3) You may also use cimetidine (Tagamet), ranitidine (Zantac), or famotidine (Pepcid) every four hours if diphenhydramine is not controlling itching and hives. (4) Avoid aspirin until the hives completely disappear. (5) Avoid hot bahs or showers until the hives are completely gone. Call the doctor if faintness, difficulty swallowing, tightness in the chest, or wheezing occurs. Referrals: ASTRID IRENE MD [Primary Care Provider] - Follow up as needed I personally performed the services described in the documentation, reviewed and edited the documentation which was dictated to the scribe in my presence, and it accurately records my words and actions.
[2019-12-11 03:32] VITALS: BP 117/65
--- NOTE | 2019-12-11 06:13 | EKG REPORT ---
SEVERITY:- BORDERLINE ECG - SINUS RHYTHM NONSPECIFIC ST-T CHANGES ANTERIOR LEADS : Confirmed by: Matheus Tyson MD 11-Dec-2019 06:12:26
== END 2019-12-11 03:32 | disposition home or self-care (01) ==
LOC: ER 23:54
DX: T78.40XA Allergy, unspecified, initial encounter (principal); R41.82 Altered mental status, unspecified; Z79.899 Other long term (current) drug therapy; Y92.9 Unspecified place or not applicable
CPT/HCPCS: 93005; 99285; 96374; 96375; 36415; 82550; 85025; 85610; 85730; 80053; 84484; 71046; 70450; 93010; J2930; S0028

== ENCOUNTER 2019-12-13 10:53 | Emergency (ER) | payer BC ==
--- NOTE | 2019-12-13 11:55 | ER Document Report ---
ED Medical Screen (RME) - General Chief Complaint: Other Stated Complaint: AMS/WEAKNESS Time Seen by Provider: 12/13/19 11:48 Primary Care Provider: ASTRID IRENE MD [Primary Care Provider] - Follow up as needed Notes: 54-year-old female presents for possible sepsis. Patient was sent over by her primary care doctor. Patient states she was very confused yesterday however she feels better today. Patient states she was diagnosed with a urinary tract infection was placed on Cipro 2 weeks ago. Patient found out today that the itching she has been having is due to the Cipro. Patient states she is having nausea but denies any chest pain, shortness of breath, body aches, fever, chills, vomiting, urinary symptoms. I have greeted and performed a rapid initial assessment of this patient. A comprehensive ED assessment and evaluation of the patient, analysis of test results and completion of the medical decision making process with be conducted by additional ED providers. TRAVEL OUTSIDE OF THE [place] IN LAST 30 DAYS: No - Related Data Allergies/Adverse Reactions: ciprofloxacin [From Cipro] Allergy (Verified 12/13/19 11:48) Home Medications: lexapro. risperdal. benadryl. gabapentin. bc powder Past Medical History - Social History Chew tobacco use (# tins/day): No Frequency of alcohol use: None Drug Abuse: None - Past Medical History Cardiac Medical History: Denies: Hx Congestive Heart Failure, Hx Hypertension Pulmonary Medical History: Reports: Hx Bronchitis - w/ RAD, Hx Pneumonia Denies: Hx Asthma, Hx Tuberculosis Neurological Medical History: Denies: Hx Seizures Renal/ Medical History: Denies: Hx Peritoneal Dialysis Musculoskeltal Medical History: Reports Hx Arthritis - bilateral knees Psychiatric Medical History: Reports: Hx Bipolar Disorder, Hx Depression Denies: Hx Schizophrenia Past Surgical History: Reports: Hx Abdominal Surgery - gastric bypass, Hx Cholecystectomy, Hx Gastric Bypass Surgery - 1994, Hx Tonsillectomy, Hx Tubal Ligation. Denies: Hx Hysterectomy - Immunizations Immunizations up to date: Yes Hx Diphtheria, Pertussis, Tetanus Vaccination: Yes Physical Exam - Vital signs Vitals: Temp Pulse Resp BP Pulse Ox 97.6 F 69 18 117/78 98 12/13/19 11:39 12/13/19 11:39 12/13/19 11:39 12/13/19 11:39 12/13/19 11:39 Course - Vital Signs Vital signs: Temp Pulse Resp BP Pulse Ox 97.6 F 69 18 117/78 98 12/13/19 11:39 12/13/19 11:39 12/13/19 11:39 12/13/19 11:39 12/13/19 11:39 Doctor's Discharge - Discharge Referrals: ASTRID IRENE MD [Primary Care Provider] - Follow up as needed
--- NOTE | 2019-12-13 12:18 | RADIOLOGY REPORT (SQ) ---
EXAM DESCRIPTION: CHEST 2 VIEWS COMPLETED DATE/TIME: 12/13/2019 12:07 pm REASON FOR STUDY: sepsis COMPARISON: 12/11/2019 TECHNIQUE: Frontal and lateral radiographic views of the chest acquired. NUMBER OF VIEWS: Two view. LIMITATIONS: None. FINDINGS: LUNGS AND PLEURA: No opacities, masses or pneumothorax. No pleural effusion. MEDIASTINUM AND HILAR STRUCTURES: No masses or contour abnormalities. HEART AND VASCULAR STRUCTURES: Top normal to minimally enlarged heart with slight left ventricular pr ominence. No overt congestive failure, however. BONES: No acute findings. HARDWARE: None in the chest. OTHER: No other significant finding. IMPRESSION: As above. Significant acute abnormality is not appreciated. TECHNICAL DOCUMENTATION: JOB ID: [id number] 2010 [employer]- All Rights Reserved Reading location - IP/workstation name: [email or web address]
[2019-12-13 13:34] LABS: ABSOLUTE BASOPHILS # (AUTO) 0.1 10^3/uL (0.0-0.2); ABSOLUTE EOSINOPHILS # (AUTO) 0.2 10^3/uL (0.0-0.6); ABSOLUTE LYMPHOCYTES (AUTO) 0.8 10^3/uL (0.5-4.7); ABSOLUTE MONOCYTES (AUTO) 0.5 10^3/uL (0.1-1.4); ABSOLUTE NEUT (AUTO) 2.5 10^3/uL (1.7-8.2); BASOPHILS % (AUTO) 1.4 % (0-2); EOSINOPHILS % (AUTO) 5.3 % (0-6); HEMATOCRIT 40.5 % (36.0-47.0); HEMOGLOBIN 13.1 g/dL (12.0-15.5); LYMPHOCYTES % (AUTO) 18.4 % (13-45); MEAN CORPUSCULAR HEMOGLOBIN 27.8 pg (27.0-33.4); MEAN CORPUSCULAR HGB CONC 32.3 g/dL (32.0-36.0); MEAN CORPUSCULAR VOLUME 86 fl (80-97); MONOCYTES % (AUTO) 13.1 % (3-13); PLATELET COUNT 232 10^3/uL (150-450); RED CELL DISTRIBUTION WIDTH 15.3 % (11.5-14.0); SEGMENTED NEUTROPHILS % (AUTO) 61.8 % (42-78); TOTAL CELLS COUNTED % (AUTO) 100 %; WHITE BLOOD COUNT 4.1 10^3/uL (4.0-10.5)
[2019-12-13 13:39] LABS: APPEARANCE,URINE SLIGHTLY-CLOUDY; BILIRUBIN,URINE NEGATIVE (NEGATIVE); COLOR,URINE YELLOW; GLUCOSE, URINE NEGATIVE (NEGATIVE); KETONES,URINE TRACE mg/dL (NEGATIVE); PROTEIN,URINE NEGATIVE (NEGATIVE); UROBILINOGEN,URINE NEGATIVE mg/dL (<2.0)
[2019-12-13 13:49] LABS: ALBUMIN 4.3 g/dL (3.5-5.0); ALKALINE PHOSPHATASE 100 U/L (38-126); ANION GAP 10 (5-19); ASPARTATE AMINO TRANSFERASE 29 U/L (14-36); BILIRUBIN,DIRECT 0.3 mg/dL (0.0-0.4); BILIRUBIN,TOTAL 0.4 mg/dL (0.2-1.3); BLOOD UREA NITROGEN 15 mg/dL (7-20); CALCIUM 9.3 mg/dL (8.4-10.2); CARBON DIOXIDE 30 mmol/L (22-30); CHLORIDE 102 mmol/L (98-107); GLUCOSE 81 mg/dL (75-110); POTASSIUM 3.4 mmol/L (3.6-5.0); TOTAL PROTEIN 7.7 g/dL (6.3-8.2)
--- NOTE | 2019-12-13 16:45 | ER Document Report ---
Entered by BETINA MORE SCRIBE 12/13/19 [id number] Acting as scribe for:IGNACIO KHAN MD ED General - General Chief Complaint: Other Stated Complaint: AMS/WEAKNESS Time Seen by Provider: 12/13/19 11:48 Primary Care Provider: ASTRID IRENE MD [ACTIVE STAFF] - Follow up as needed Information source: Patient, Relative Notes: 54-year-old female presents to the emergency department stating that when she went to her primary care office this morning, they sent her over because she "may be septic". Patient states that yesterday she had a "bizarre" episode where she ended up in [place]. Patient was driving and did not remember how she got to [place]. Patient's family member stated that this happens occasionally but patient refuted this family members claim. Patient stated that this was a first incident. Patient reports nausea. Patient denies fever, chills, vomiting, diarrhea, and headaches. Patient stopped talking her Cipro dose today for her UTI on her PCP orders. TRAVEL OUTSIDE OF THE [place] IN LAST 30 DAYS: No - Related Data Allergies/Adverse Reactions: ciprofloxacin [From Cipro] Allergy (Verified 12/13/19 11:48) Home Medications: lexapro. risperdal. benadryl. gabapentin. bc powder Past Medical History - General Information source: Patient - Social History Smoking Status: Never Smoker Cigarette use (# per day): No Chew tobacco use (# tins/day): No Frequency of alcohol use: None Drug Abuse: None Occupation: [employer] employee Lives with: Family Family History: Reviewed & Not Pertinent, CAD, Hypertension Patient has suicidal ideation: No Patient has homicidal ideation: No Pulmonary Medical History: Reports: Hx Bronchitis - w/ RAD, Hx Pneumonia Endocrine Medical History: Reports: Hx Diabetes Mellitus Type 2 Musculoskeletal Medical History: Reports Hx Arthritis - bilateral knees Psychiatric Medical History: Reports: Hx Bipolar Disorder, Hx Depression Past Surgical History: Reports: Hx Abdominal Surgery - gastric bypass, Hx Cholecystectomy, Hx Gastric Bypass Surgery - 1994, Hx Tonsillectomy, Hx Tubal Ligation - Immunizations Immunizations up to date: Yes Hx Diphtheria, Pertussis, Tetanus Vaccination: Yes Review of Systems - Review of Systems Constitutional: See HPI. denies: Chills, Fever EENT: No symptoms reported Cardiovascular: No symptoms reported Respiratory: No symptoms reported Gastrointestinal: See HPI, Nausea. denies: Diarrhea, Vomiting Genitourinary: No symptoms reported Female Genitourinary: No symptoms reported Musculoskeletal: No symptoms reported Skin: No symptoms reported Hematologic/Lymphatic: No symptoms reported Neurological/Psychological: See HPI. denies: Headaches -: Yes All other systems reviewed and negative Physical Exam - Vital signs Vitals: Temp Pulse Resp BP Pulse Ox 97.6 F 69 18 117/78 98 12/13/19 11:39 12/13/19 11:39 12/13/19 11:39 12/13/19 11:39 12/13/19 11:39 - Notes Notes: Physical Exam: General: Alert, appears well. HEENT: Normocephalic. Atraumatic. PERRL. Extraocular movements intact. Oropharynx clear. Neck: Supple. Non-tender. Respiratory: No respiratory distress. Clear and equal breath sounds bilaterally. Cardiovascular: Regular rate and rhythm. Abdominal: Normal Inspection. Non-tender. No distension. Normal Bowel Sounds. Back: No gross abnormalities. Extremities: Moves all four extremities. Upper extremities: Normal inspection. Normal ROM. Lower extremities: Normal inspection. No edema. Normal ROM. Neurological: Normal cognition. AAOx4. Normal speech. Psychological: Normal affect. Normal Mood. Skin: Warm. Dry. Normal color. Course - Re-evaluation Re-evalutation: 12/13/19 16:40 Patient alert oriented not showing any signs of distress at this time. 12/13/19 16:44 Patient was eating crackers as we walked into the room for an evaluation. - Vital Signs Vital signs: Temp Pulse Resp BP Pulse Ox 97.6 F 69 18 117/78 98 12/13/19 11:39 12/13/19 11:39 12/13/19 11:39 12/13/19 11:39 12/13/19 11:39 - Laboratory Result Diagrams: 12/13/19 13:00 12/13/19 13:00 Laboratory results interpreted by me: 12/13/19 12/13/19 12/13/19 13:00 13:00 13:00 RDW 15.3 H [place] % (Auto) 13.1 H Potassium 3.4 L Est GFR (MDRD) Non-Af 59 L Urine Ketones TRACE H - Diagnostic Test Radiology reviewed: Image reviewed, Reports reviewed Radiology results interpreted by me: 12/13/19 16:42 Chest x-ray no acute cardiopulmonary process no infiltrate. - EKG Interpretation by Me Additional EKG results interpreted by me: 12/13/19 16:41 Twelve-lead EKG 12/13/2019 at 1250 shows normal sinus rhythm rate of [address] changes. Discharge - Discharge Clinical Impression: Hypoglycemia Condition: Stable Disposition: HOME, SELF-CARE Additional Instructions: Hypoglycemia Diet The physician has recommended a special diet for hypoglycemia. The goal of this diet is to keep a steady supply of food energy, without sudden jumps in blood sugar. Divide your daily calories into six small meals. Meals should be high in complex carbohydrates -- starchy foods. Avoid fats. Eat plenty of vegetables. Include protein from both plants (beans, peas) and animals (skim milk, fish, poultry). Plan for a small high-protein bedtime snack. Eat slowly and chew thoroughly. Avoid any foods which put a lot of sugar into your system suddenly. Drink water rather than large glasses of fruit juice. Don't drink sugar-containing soda pop, and NO CANDY. Slightly-sweet natural foods, such as sweet potato, apples, bananas, and carrots, usually cause no problems. Ketogenic diet, general information: The ketogenic diet is sometimes useful in children with intractable epilepsy (seizures that can't be controlled with medicine). The diet is high in fat, causing ketones and acids to build up in the blood stream. Combined with restriction of total calories, this mimics the effects of starvation. Somehow this helps prevent seizures in some patients. We don't recommend it as a replacement for anti-seizure medicine, but only when these medicines are melanie ling. The ketogenic diet is complicated, and hard to coordinate with other family member's diets. There are potential complications, such as kidney stones, hypoglycemia, weakness, and muscle atrophy. Because of the difficulty "getting it right," we often start the diet in the hospital under the supervision of a chemistry instructor. The usual ketogenic diet gets 80% of its calories from fat. The amount of fat may be varied depending on the child's response to the diet. (The proportion of fat to protein plus carbs is called the "ketogenic ratio." A diet that's 80% fat has a 4:1 ketogenic ratio.) Total calories per day are limited to 75% of the recommended calories for the child's age and IDEAL weight. Water intake is restricted to somewhat less than the usual "maintenance amount" -- about 3/4 of the recommended water intake. The diet generally avoids carbohydrates in order to get the child's Recommended Daily Allowance (PILATES INSTRUCTOR) of protein. A multivitamin and calcium supplement should be given daily. Urine is checked daily with ketone test-strips. Ketogenic diet, protocol: 1. Weigh the child in kilograms 2. Calculate total daily calories Under 1 yr: 80 Calories times weight in kg = total calories 1-3 yrs: 75 Calories times weight in kg = total calories 4-6 yrs: 68 Calories times weight in kg = total calories 7-10 yrs: 60 Calories times weight in kg = total calories 11 and up: 40-50 Calories times weight in kg = total calories 3. Calculate number of daily "dietary units" based on ketogenic ratio 2:1 ketogenic ratio: total daily calories divided by 22 = dietary units per day 3:1 ketogenic ratio: total daily calories divided by 31 = dietary units per day 4:1 ketogenic ratio: total daily calories divided by 40 = dietary units per day 5:1 ketogenic ratio: total daily calories divided by 49 = dietary units per day 4. Calculate grams of daily fat based on recommended ketogenic ratio 2:1 ketogenic ratio: 2 times number of dietary units = grams of fat per day 3:1 ketogenic ratio: 3 times number of dietary units = grams of fat per day 4:1 ketogenic ratio: 4 times number of dietary units = grams of fat per day 5:1 ketogenic ratio: 5 times number of dietary units = grams of fat per day 5. Get protein Recommended Daily Allowance (PILATES INSTRUCTOR) in grams age 0-6 months: 2 times weight in kg = grams of protein per day age 6-12 months: 1.5 times weight in kg = grams of protein per day age 1-3 years: 1.25 times weight in kg = grams of protein per day age 4 or older: 1 times weight in kg = grams of protein per day 6. Calculate allowed carbohydrate Dietary units per day minus protein allowance (PILATES INSTRUCTOR) = grams of carbohydrate per day 7. Divide total daily allowances into individual meals, keeping same ratio of fat to protein and carbohydrates. 8. Determine amount of allowed daily fluids. Weight less than 10 k/4 times weight in kg times 4 ml/hour times 24 hours = ml fluids per day Weight 10-20 k ml plus 3/4 times (weight - 10 kg) times 2 ml/hour times 24 hours = ml/day Weight over 20 k ml plus 3/4 times (weight - 20 kg) times 1 ml/hour times 24 hours = ml/day 9. Add calcium supplement and multivitamin.Hypoglycemia You have suffered an episode of hypoglycemia (low blood sugar). Typical symptoms of hypoglycemia are shaking, sweating, headache, and confusion. When severe, unconsciousness or seizure may occur. Hypoglycemia occurs when a person taking insulin or diabetes pills has a change in the amount of blood sugar available -- due to exercise, decreased food intake, or alcohol. Should you feel symptoms of hypoglycemia again, immediately take some form of sugar such as sweetened juice. As the reaction subsides, eat a complex carbohydrate such as bread. If possible, check your blood sugar using a chemical strip. If episodes are occurring without obvious explanation, contact your physician for further evaluation. Referrals: ASTRID IRENE MD [ACTIVE STAFF] - Follow up as needed I personally performed the services described in the documentation, reviewed and edited the documentation which was dictated to the scribe in my presence, and it accurately records my words and actions.
[2019-12-13 17:19] VITALS: BP 113/64
--- NOTE | 2019-12-13 22:37 | EKG REPORT ---
SEVERITY:- NORMAL ECG - SINUS RHYTHM : Confirmed by: Nik Ly 13-Dec-2019 22:35:29
== END 2019-12-13 17:35 | disposition home or self-care (01) ==
LOC: ER 10:53
DX: E11.649 Type 2 diabetes mellitus with hypoglycemia without coma (principal); R11.0 Nausea; F31.9 Bipolar disorder, unspecified; Z79.899 Other long term (current) drug therapy; Z88.1 Allergy status to other antibiotic agents
CPT/HCPCS: 36415; 71046; 80053; 81001; 82962; 83605; 83735; 84484; 85025; 87040; 93005; 93010; 99285

== ENCOUNTER 2019-12-14 14:55 | Observation (INO) | payer BC ==
--- NOTE | 2019-12-14 15:06 | ER Document Report ---
ED Medical Screen (RME) - General Chief Complaint: S/S of Possible Stroke Stated Complaint: STROKE LIKE SYMPTOMS Time Seen by Provider: 12/14/19 15:02 Primary Care Provider: YEE RAPHAEL MD [Primary Care Provider] - Follow up as needed TRAVEL OUTSIDE OF THE [place] IN LAST 30 DAYS: No - HPI Notes: 12/14/19 15:03 54-year-old female to the emergency department with ex- with complaints of possible strokelike symptoms that began at 1040 this morning. She states that she was trying to get up to take her current to work when she lost control of her neck, arms. She states she is sitting on the toilet at the time that this happened and she just felt like she could not hold anything up and everything was shaking and that she was moving around. She states that she was trying to talk to people but she could not. Apparently at that point her mother came over and saw her and said that her right arm was purple as well as her face and that she had a droop in her mouth. The medics were called and the patient states that she got much better after they applied oxygen to her. She states that she was here in the emergency department yesterday being evaluated for sepsis. She denies any fevers or chills today or cough or any other focal infectious site. She states that her symptoms have resolved but she is not exactly sure what time they resolved. She never had a stroke before. She is not on a blood thinner. I performed a brief medical screening exam on the patient determined that she will need further evaluation by main side provider. Placed initial orders to help expedite her care. I have advised attending staff of patient symptomology. On brief neurological exam patient has cranial nerves II through XII intact. She has no pronator drift. She has no leg drift. Normal [id number] bilaterally. There is no evidence for fasciculations or tremors. There is no evidence for seizure-like activity. She has no aphasia. She has no sensory deficit. She has no nystagmus. She is alert and oriented x4. - Related Data Allergies/Adverse Reactions: ciprofloxacin [From Cipro] Allergy (Verified 12/13/19 11:48) Past Medical History - Past Medical History Cardiac Medical History: Denies: Hx Congestive Heart Failure, Hx Hypertension Pulmonary Medical History: Reports: Hx Bronchitis - w/ RAD, Hx Pneumonia Denies: Hx Asthma, Hx Tuberculosis Neurological Medical History: Denies: Hx Seizures Endocrine Medical History: Reports: Hx Diabetes Mellitus Type 2 Renal/ Medical History: Denies: Hx Peritoneal Dialysis Musculoskeltal Medical History: Reports Hx Arthritis - bilateral knees Psychiatric Medical History: Reports: Hx Bipolar Disorder, Hx Depression Denies: Hx Schizophrenia Past Surgical History: Reports: Hx Abdominal Surgery - gastric bypass, Hx Cholecystectomy, Hx Gastric Bypass Surgery - 1994, Hx Tonsillectomy, Hx Tubal Ligation. Denies: Hx Hysterectomy - Immunizations Immunizations up to date: Yes Hx Diphtheria, Pertussis, Tetanus Vaccination: Yes Doctor's Discharge - Discharge Referrals: YEE RAPHAEL MD [Primary Care Provider] - Follow up as needed
--- NOTE | 2019-12-14 15:46 | RADIOLOGY REPORT (SQ) ---
EXAM DESCRIPTION: CT HEAD WITHOUT COMPLETED DATE/TIME: 12/14/2019 3:33 pm REASON FOR STUDY: convulsion, numbness, AMS COMPARISON: None. TECHNIQUE: Axial images acquired through the brain without intravenous contrast. Images reviewed wi th bone, brain and subdural windows. Additional sagittal and coronal reconstructions were generated. Images stored on PACS. All CT scanners at this facility use dose modulation, iterative reconstruction, and/or weight based d osing when appropriate to reduce radiation dose to as low as reasonably achievable (ALARA). [facility]: Dose Right [facility]: CareDose [facility]: Dose Right [facility]: Teradose 4D [facility]: Altacor RADIATION DOSE: CT Rad equipment meets quality standard of care and radiation dose reduction techniq ues were employed. CTDIvol: 53.2 mGy. DLP: 937 mGy-cm. mGy. LIMITATIONS: None. FINDINGS: VENTRICLES: Normal size and contour. CEREBRUM: No masses. No hemorrhage. No midline shift. No evidence for acute infarction. Normal gra y/white matter differentiation. No areas of low density in the white matter. CEREBELLUM: No masses. No hemorrhage. No alteration of density. No evidence for acute infarction. EXTRAAXIAL SPACES: No fluid collections. No masses. ORBITS AND GLOBE: No intra- or extraconal masses. Normal contour of globe without masses. CALVARIUM: No fracture. PARANASAL SINUSES: No fluid or mucosal thickening. SOFT TISSUES: No mass or hematoma. OTHER: No other significant finding. IMPRESSION: NORMAL BRAIN CT WITHOUT CONTRAST. EVIDENCE OF ACUTE STROKE: NO. COMMENT: Quality ID # [id number]: Final reports with documentation of one or more dose reduction techniques (e.g., Automated exposure control, adjustment of the mA and/or kV according to patient size, use of iterative reconstruction technique) TECHNICAL DOCUMENTATION: JOB ID: [id number] 2010 [employer]- All Rights Reserved Reading location - IP/workstation name: [email or web address]
--- NOTE | 2019-12-14 16:01 | RADIOLOGY REPORT (SQ) ---
EXAM DESCRIPTION: CHEST SINGLE VIEW COMPLETED DATE/TIME: 12/14/2019 3:41 pm REASON FOR STUDY: convulsions, AMS COMPARISON: 12/13/2019 NUMBER OF VIEWS: One view. TECHNIQUE: Single frontal radiographic view of the chest acquired. LIMITATIONS: None. FINDINGS: LUNGS AND PLEURA: No opacities, masses or pneumothorax. No pleural effusion. MEDIASTINUM AND HILAR STRUCTURES: No masses. Contour normal. HEART AND VASCULAR STRUCTURES: Heart enlarged without failure. Normal vasculature. BONES: No acute findings. HARDWARE: None in the chest. OTHER: No other significant finding. IMPRESSION: HEART ENLARGED WITHOUT FAILURE. NO OTHER SIGNIFICANT RADIOGRAPHIC FINDING IN THE CHEST. TECHNICAL DOCUMENTATION: JOB ID: [id number] 2010 [employer]- All Rights Reserved Reading location - IP/workstation name: [email or web address]
[2019-12-14 16:03] LABS: ABSOLUTE EOSINOPHILS # (AUTO) 0.2 10^3/uL (0.0-0.6); ABSOLUTE LYMPHOCYTES (AUTO) 0.9 10^3/uL (0.5-4.7); ABSOLUTE MONOCYTES (AUTO) 0.8 10^3/uL (0.1-1.4); ABSOLUTE NEUT (AUTO) 4.5 10^3/uL (1.7-8.2); BASOPHILS % (AUTO) 0.7 % (0-2); HEMATOCRIT 39.9 % (36.0-47.0); HEMOGLOBIN 12.9 g/dL (12.0-15.5); LYMPHOCYTES % (AUTO) 13.3 % (13-45); MEAN CORPUSCULAR HEMOGLOBIN 27.6 pg (27.0-33.4); MEAN CORPUSCULAR HGB CONC 32.2 g/dL (32.0-36.0); MEAN CORPUSCULAR VOLUME 86 fl (80-97); MONOCYTES % (AUTO) 12.7 % (3-13); PLATELET COUNT 203 10^3/uL (150-450); RED BLOOD COUNT 4.66 10^6/uL (3.72-5.28); RED CELL DISTRIBUTION WIDTH 15.6 % (11.5-14.0); SEGMENTED NEUTROPHILS % (AUTO) 70.3 % (42-78); TOTAL CELLS COUNTED % (AUTO) 100 %; WHITE BLOOD COUNT 6.5 10^3/uL (4.0-10.5)
[2019-12-14 16:25] LABS: ALBUMIN 3.6 g/dL (3.5-5.0); ALKALINE PHOSPHATASE 97 U/L (38-126); ANION GAP 6 (5-19); ASPARTATE AMINO TRANSFERASE 26 U/L (14-36); BILIRUBIN,TOTAL 0.2 mg/dL (0.2-1.3); BLOOD UREA NITROGEN 18 mg/dL (7-20); CALCIUM 8.8 mg/dL (8.4-10.2); CARBON DIOXIDE 25 mmol/L (22-30); CHLORIDE 109 mmol/L (98-107); GLUCOSE 91 mg/dL (75-110); POTASSIUM 4.2 mmol/L (3.6-5.0); TOTAL PROTEIN 6.7 g/dL (6.3-8.2)
[2019-12-14] MEDS ORDERED: ASPIRIN 81 MG TABLET, CHEWABLE PO ONE (16:46)
[2019-12-14] MEDS ORDERED: ACETAMINOPHEN 325 MG TABLET PO ONE (17:01)
[2019-12-14] MEDS ORDERED: METOPROLOL TARTRATE PF/INJ 5 MG/5 ML SDV IV ONE (17:19)
[2019-12-14] MEDS ORDERED: ONDANSETRON HCL INJ/PF 4 MG/2 ML SDV IV ONE (19:04)
--- NOTE | 2019-12-14 19:37 | ER Document Report ---
Entered by NEIDA ROBINS SCRIBE 12/14/19 [id number] Acting as scribe for:EVERETT VIERA DO ED General - General Chief Complaint: Numbness Stated Complaint: STROKE LIKE SYMPTOMS Time Seen by Provider: 12/14/19 15:02 Primary Care Provider: YEE RAPHAEL MD [Primary Care Provider] - Follow up as needed Information source: Patient, [facility] Records Notes: This 54-year-old female patient with a history of bipolar disorder presents to the emergency department today for her third visit in the last five days. Patient was seen here in this ED on 12/10 for a "possible allergic reaction". She was seen again here yesterday for concerns of bizarre behavior and a "clouded mind". Patient states that she did several activities yesterday like "driving to [place]" for no known reason, stating that she was "unaware of what she was doing" for a period of time, but that has since resolved. Today the patient states that she woke up at 10:45 to take her to work, she sat down on the toilet and began "flailing around with my arms and head". Patient adds that she was completely alert during this entire episode but states that the movements were involuntary. Patient reports that these "movements" lasted for approximately 5 minutes. Patient called out to her friend who was at the house, she came into the bathroom and told her that her "right arm and her face were purple, and she had a right-sided facial droop". EMS was called and the patient reports that by the time EMS had arrived all of her symptoms had resolved and they told her that "there was probably not much they would do at the emergency department now that everything had stopped" so she was not transported here then. Patient reports that her family has been very concerned about her the last few days so they told her to come into the emergency department anyways. Patient does not have a history of seizures and did not bite her tongue today. Patient has had no recent medication changes. Patient denies chest pain or shortness of breath. TRAVEL OUTSIDE OF THE [place] IN LAST 30 DAYS: No - Related Data Allergies/Adverse Reactions: ciprofloxacin [From Cipro] Allergy (Verified 12/13/19 11:48) Past Medical History - General Information source: Patient, [facility] Records - Social History Smoking Status: Never Smoker Cigarette use (# per day): No Frequency of alcohol use: None Drug Abuse: None Lives with: Family Family History: Reviewed & Not Pertinent, CAD, Hypertension Patient has suicidal ideation: No Patient has homicidal ideation: No Pulmonary Medical History: Reports: Hx Bronchitis - w/ RAD, Hx Pneumonia Endocrine Medical History: Reports: Hx Diabetes Mellitus Type 2 Musculoskeletal Medical History: Reports Hx Arthritis - bilateral knees Psychiatric Medical History: Reports: Hx Bipolar Disorder, Hx Depression Past Surgical History: Reports: Hx Cholecystectomy, Hx Gastric Bypass Surgery - 1994, Hx Tonsillectomy, Hx Tubal Ligation - Immunizations Immunizations up to date: Yes Hx Diphtheria, Pertussis, Tetanus Vaccination: Yes Review of Systems - Review of Systems Constitutional: No symptoms reported EENT: No symptoms reported Cardiovascular: denies: Chest pain Respiratory: See HPI Gastrointestinal: No symptoms reported Genitourinary: No symptoms reported Female Genitourinary: No symptoms reported Musculoskeletal: See HPI, Neck pain Skin: No symptoms reported Hematologic/Lymphatic: No symptoms reported Neurological/Psychological: See HPI, Seizure - ?, Tremor - ? -: Yes All other systems reviewed and negative Physical Exam - Vital signs Vitals: Temp Pulse Resp BP Pulse Ox 98.6 F 103 H 18 123/57 L 96 12/14/19 15:05 12/14/19 15:05 12/14/19 15:05 12/14/19 15:05 12/14/19 15:05 - Notes Notes: Physical Exam: General: Alert, morbidly obese. HEENT: Normocephalic. Atraumatic. PERRL. Extraocular movements intact. Oropharynx clear. Neck: Supple. Indicates left-sided neck pain over the sternocleidomastoid joint, palpation of this muscle provides relief according to the patient. Respiratory: No respiratory distress. Clear and equal breath sounds bilaterally. Cardiovascular: Regular rate and rhythm. Abdominal: Morbidly obese. Non-tender. No distension. Normal Bowel Sounds. Back: No gross abnormalities. Extremities: Moves all four extremities. Upper extremities: Normal inspection. Normal ROM. Lower extremities: Normal inspection. No edema. Normal ROM. Neurological: Normal cognition. AAOx4. Normal speech. Cranial nerves II through XII grossly intact bilaterally. No pronator drift. Psychological: Bizarre affect. Skin: Warm. Dry. Normal color. Course - Re-evaluation Re-evalutation: 12/14/19 21:05 MDM Unusal 54 year old female has been accepted at [facility] with no bed. Is on list there. - Vital Signs Vital signs: Temp Pulse Resp BP Pulse Ox 98.6 F 101 H 14 120/83 96 12/14/19 15:05 12/14/19 16:01 12/14/19 20:02 12/14/19 20:02 12/14/19 20:02 - Laboratory Result Diagrams: 12/14/19 15:15 12/14/19 15:15 Laboratory results interpreted by me: 12/14/19 12/14/19 15:15 15:15 RDW 15.6 H Chloride 109 H - Diagnostic Test Radiology reviewed: Reports reviewed Discharge - Discharge Clinical Impression: Elevated troponin, Tremor, Morbid obesity with BMI of 45.0-49.9, adult, Weakness Condition: Fair Disposition: [facility] Referrals: YEE RAPHAEL MD [Primary Care Provider] - Follow up as needed I personally performed the services described in the documentation, reviewed and edited the documentation which was dictated to the scribe in my presence, and it accurately records my words and actions.
--- NOTE | 2019-12-14 21:20 | EKG REPORT ---
SEVERITY:- OTHERWISE NORMAL ECG - SINUS TACHYCARDIA : Confirmed by: Nik Ly 14-Dec-2019 21:19:57
[2019-12-15 04:03] LABS: APPEARANCE,URINE SLIGHTLY-CLOUDY; BILIRUBIN,URINE NEGATIVE (NEGATIVE); COLOR,URINE YELLOW; GLUCOSE, URINE NEGATIVE (NEGATIVE); KETONES,URINE NEGATIVE (NEGATIVE); LEUKOCYTE ESTERASE,URINE TRACE (NEGATIVE); NITRITE,URINE NEGATIVE (NEGATIVE); PROTEIN,URINE 30 mg/dL (NEGATIVE); URINE SPECIFIC GRAVITY 1.035; UROBILINOGEN,URINE NEGATIVE mg/dL (<2.0)
[2019-12-15] MEDS ORDERED: ACETAMINOPHEN 325 MG TABLET PO ONE (05:00)
[2019-12-15] MEDS ORDERED: GABAPENTIN 300 MG CAPSULE PO SCH ×2 (05:30→06:00)
[2019-12-15] MEDS ORDERED: PROPRANOLOL HCL 10 MG TABLET PO SCH (05:30)
[2019-12-15] MEDS ORDERED: TOLTERODINE TARTRATE 1 MG TABLET ONE (05:55)
[2019-12-15] MEDS ORDERED: GABAPENTIN 100 MG CAPSULE PO SCH (06:00)
[2019-12-15] MEDS: TOLTERODINE TARTRATE 1 MG TABLET PO SCH ×4 (06:04→21:44)
[2019-12-15] MEDS: RISPERIDONE 1 MG TABLET PO SCH ×4 (06:06→21:45)
--- NOTE | 2019-12-15 08:05 | ER Document Report ---
ED General - General Chief Complaint: Numbness Stated Complaint: STROKE LIKE SYMPTOMS Time Seen by Provider: 12/14/19 15:02 Primary Care Provider: YEE RAPHAEL MD [Primary Care Provider] - Follow up as needed TRAVEL OUTSIDE OF THE [place] IN LAST 30 DAYS: No - Related Data Allergies/Adverse Reactions: ciprofloxacin [From Cipro] Allergy (Verified 12/13/19 11:48) Past Medical History - General Information source: Patient, [facility] Records - Social History Smoking Status: Never Smoker Cigarette use (# per day): No Frequency of alcohol use: None Drug Abuse: None Lives with: Family Family History: Reviewed & Not Pertinent, CAD, Hypertension Patient has suicidal ideation: No Patient has homicidal ideation: No - Past Medical History Cardiac Medical History: Denies: Hx Congestive Heart Failure, Hx Hypertension Pulmonary Medical History: Reports: Hx Bronchitis - w/ RAD, Hx Pneumonia Denies: Hx Asthma, Hx Tuberculosis Neurological Medical History: Denies: Hx Seizures Endocrine Medical History: Reports: Hx Diabetes Mellitus Type 2 Renal/ Medical History: Denies: Hx Peritoneal Dialysis Musculoskeletal Medical History: Reports Hx Arthritis - bilateral knees Psychiatric Medical History: Reports: Hx Bipolar Disorder, Hx Depression Denies: Hx Schizophrenia Past Surgical History: Reports: Hx Abdominal Surgery - gastric bypass, Hx Cholecystectomy, Hx Gastric Bypass Surgery - 1994, Hx Tonsillectomy, Hx Tubal Ligation. Denies: Hx Hysterectomy - Immunizations Immunizations up to date: Yes Hx Diphtheria, Pertussis, Tetanus Vaccination: Yes Physical Exam - Vital signs Vitals: Temp Pulse Resp BP Pulse Ox 98.6 F 103 H 18 123/57 L 96 12/14/19 15:05 12/14/19 15:05 12/14/19 15:05 12/14/19 15:05 12/14/19 15:05 Course - Re-evaluation Re-evalutation: 12/15/19 08:04 Patient inherited in signout TIA now resolved Also AMS? Symptoms do not sound would usually like a TIA however will need further work-up Do not think she needs neurology or [facility] with Dr. brower saw she will keep her in IMCU and do a TIA work-up. [place] - Vital Signs Vital signs: Temp Pulse Resp BP Pulse Ox 97.5 F 82 20 104/70 98 12/15/19 04:00 12/15/19 03:50 12/15/19 06:02 12/15/19 07:00 12/15/19 07:01 - Laboratory Result Diagrams: 12/14/19 15:15 12/14/19 15:15 Laboratory results interpreted by me: 12/14/19 12/14/19 12/15/19 15:15 15:15 03:18 RDW 15.6 H Chloride 109 H Urine Protein 30 H Ur Leukocyte Esterase TRACE H Discharge - Discharge Clinical Impression: Elevated troponin, Tremor, Morbid obesity with BMI of 45.0-49.9, adult, Weakness Condition: Fair Disposition: ADMITTED OBSERVATION Admitting Provider: Espinoza (Hospitalist) Unit Admitted: IMCU Referrals: YEE RAPHAEL MD [Primary Care Provider] - Follow up as needed
[2019-12-15] MEDS ORDERED: MAGNESIUM HYDROXIDE SUSP 30 ML UDCUP PO PRN (09:58)
[2019-12-15] MEDS ORDERED: DOCUSATE SODIUM 100 MG CAPSULE PO PRN (09:58)
[2019-12-15] MEDS ORDERED: ESCITALOPRAM OXALATE 10 MG TABLET PO SCH (10:00)
--- NOTE | 2019-12-15 10:16 | PDOC H&P ---
History of Present Illness Admission Date/PCP: 12/15/19 08:08 YEE RAPHAEL MD Patient complains of: Right-sided facial weakness, right arm weakness History of Present Illness: VALDO SANTANA is a 54 year old female who presented to the emergency department 3:00 yesterday afternoon. She states that when she was home she was in the bathroom. She began flailing around and could not talk. She reports that the right side of her face, right arm and in fact the whole right side of her body was purple. She noticed a droop on the right side of her face. The right arm felt numb and tingly. Many hours later she feels that the right side of her face is not quite normal yet. She still remains somewhat fuzzy headed and believes that her left arm is swollen. A CT scan of the head was negative. All of her laboratory studies were normal with the exception of a troponin that was 1.3. She never complained of any chest discomfort or any symptoms related to acute coronary syndrome. At the time of this encounter she was slightly dysarthric but her mouth was very dry. She had symmetric strength and sensation. Her blood pressure was controlled. All of her symptoms had resolved. Despite this the emergency department felt the prudent to admit the patient for ongoing work-up. The patient will be admitted to observation status. I have ordered an MRI and carotid Dopplers. Because of the elevated troponin I did have cardiology see the patient. They do not feel that the troponin is elevated from a cardiac source. It could be related to a TECHNICIAN proc ess. Past Medical History Cardiac Medical History: Denies: Congestive Heart Failure, Hypertension Pulmonary Medical History: Reports: Bronchitis - w/ RAD, Pneumonia, Other - Reports lung nodules 1 on the left 2 on the right Denies: Asthma, Tuberculosis Neurological Medical History: Denies: Seizures Endocrine Medical History: Reports: Diabetes Mellitus Type 2 - The patient elysia joseph reported hypoglycemia to me and denied that she had DM, Other - Thyroid nodule Musculoskeltal Medical History: Reports: Arthritis - bilateral knees Psychiatric Medical History: Reports: Bipolar Disorder, Depression Hematology: Reports: Anemia Past Surgical History Past Surgical History: Reports: Cholecystectomy, Gastric Bypass Surgery - 1994, Tonsillectomy, Tubal Ligation Denies: Hysterectomy Social History Information Source: Patient Lives with: Family Smoking Status: Never Smoker Frequency of Alcohol Use: Occasional Hx Recreational Drug Use: No Drugs: None Hx Prescription Drug Abuse: No - Advance Directive Resuscitation Status: Full Code Surrogate healthcare decision maker:: Her is the designated decision maker Family History Family History: Reviewed & Not Pertinent, CAD, Hypertension, Other - Schizophrenia and bipolar disorder Parental Family History Reviewed: Yes Children Family History Reviewed: Yes Sibling(s) Family History Reviewed.: Yes Medication/Allergy Home Medications: Escitalopram Oxalate [Lexapro] 20 mg PO DAILY 06/14/18 Risperidone [Risperdal] 3 mg PO Q12 06/14/18 Aspirin/Caffeine [Bc Powder Packet] 2 pkt PO Q8 12/14/19 Cetirizine HCl [Zyrtec 10 mg Tablet] 10 mg PO DAILY 12/14/19 Diphenhydramine HCl [Benadryl 25 mg Capsule] 25 mg PO Q6 12/14/19 Gabapentin 800 mg PO Q6 12/14/19 Propranolol HCl [Inderal 10 mg Tablet] 10 mg PO Q12 12/14/19 Tolterodine Tartrate [Tolterodine Tartrate ER] 4 mg PO DAILY 12/14/19 Allergies/Adverse Reactions: ciprofloxacin [From Cipro] Allergy (Verified 12/13/19 11:48) Review of Systems All systems: reviewed and no additional remarkable complaints except as stated Constitutional: PRESENT: as per HPI Musculoskeletal: PRESENT: back pain Physical Exam Vital Signs: Temp Pulse Resp BP Pulse Ox 97.5 F 82 20 104/75 97 12/15/19 04:00 12/15/19 03:50 12/15/19 06:02 12/15/19 08:00 12/15/19 08:01 Intake & Output 12/14/19 12/15/19 12/16/19 06:59 06:59 06:59 Weight 140.614 kg General appearance: PRESENT: no acute distress, cooperative, morbidly obese, well-developed, well-nourished Head exam: PRESENT: atraumatic, normocephalic Eye exam: PRESENT: conjunctiva pink, EOMI, PERRLA. ABSENT: scleral icterus Ear exam: PRESENT: normal external ear exam. ABSENT: bleeding, drainage Mouth exam: PRESENT: dry mucosa, tongue midline Teeth exam: ABSENT: poor dentation Neck exam: ABSENT: carotid bruit, JVD, lymphadenopathy, tenderness, tracheostomy Respiratory exam: PRESENT: clear to auscultation manda, symmetrical, unlabored. ABSENT: chest wall tenderness, prolonged expiratory phas, rales, rhonchi, tachypnea, wheezes Cardiovascular exam: PRESENT: RRR, +S1, +S2. ABSENT: diastolic murmur, systolic murmur Pulses: PRESENT: normal radial pulses, normal dorsalis pedis pul GI/Abdominal exam: PRESENT: normal bowel sounds, soft, other - Pendulous abdomen. ABSENT: guarding, mass, tenderness Rectal exam: PRESENT: deferred Gentrourinary exam: ABSENT: indwelling catheter Extremities exam: PRESENT: pedal edema, +1 edema Musculoskeletal exam: PRESENT: ambulatory. ABSENT: deformity Neurological exam: PRESENT: alert, awake, oriented to person, oriented to place, oriented to time, oriented to situation, CN II-XII grossly intact, motor sensory deficit - Possible slight dysarthria. Patient believes her speech is back to baseline. Psychiatric exam: PRESENT: appropriate affect. ABSENT: agitated, anxious Focused psych exam: ABSENT: delusional, restlessness Skin exam: PRESENT: dry, normal color, warm, other - Tattoos. ABSENT: rash Results Laboratory Results: 12/14/19 15:15 12/14/19 15:15 12/14/19 12/14/19 12/15/19 15:15 15:15 03:18 WBC 6.5 RBC 4.66 Hgb 12.9 Hct 39.9 MCV 86 MCH 27.6 MCHC 32.2 RDW 15.6 H Plt Count 203 Seg Neutrophils % 70.3 Sodium 139.7 Potassium 4.2 Chloride 109 H Carbon Dioxide 25 Anion Gap 6 BUN 18 Creatinine 0.98 Est GFR ( Amer) > 60 Glucose 91 Calcium 8.8 Total Bilirubin 0.2 AST 26 Alkaline Phosphatase 97 Total Protein 6.7 Albumin 3.6 Urine Color YELLOW Urine Appearance SLIGHTLY-CLOUDY Urine pH 5.0 Ur Specific [place] 1.035 Urine Protein 30 H Urine Glucose (UA) NEGATIVE Urine Ketones NEGATIVE Urine Blood NEGATIVE Urine Nitrite NEGATIVE Ur Leukocyte Esterase TRACE H Urine WBC (Auto) 6 Urine RBC (Auto) 7 12/14/19 12/14/19 12/14/19 15:15 17:25 18:11 Troponin I 1.310 Cancelled 1.280 Impressions: Head CT 12/14/19 15:03 IMPRESSION: NORMAL BRAIN CT WITHOUT CONTRAST. EVIDENCE OF ACUTE STROKE: NO. Chest X-Ray 12/14/19 15:09 IMPRESSION: HEART ENLARGED WITHOUT FAILURE. NO OTHER SIGNIFICANT RADIOGRAPHIC FINDING IN THE CHEST. Assessment and Plan - Diagnosis (1) TIA (transient ischemic attack) Is this a current diagnosis for this admission?: Yes (2) Elevated troponin Is this a current diagnosis for this admission?: Yes (3) Morbid obesity with BMI of 45.0-49.9, adult Is this a current diagnosis for this admission?: Yes (4) Back pain Qualifiers: Back pain location: low back pain Is this a current diagnosis for this admission?: Yes (5) Depression Qualifiers: Depression Type: unspecified Qualified Code(s): F32.9 - Major depressive disorder, single episode, unspecified Is this a current diagnosis for this admission?: Yes (6) Bipolar disease, chronic Is this a current diagnosis for this admission?: Yes - Plan Summary Summary: 12/15/2019 The patient will be admitted to observation status. For the work-up for a likely TIA I have ordered an MRI study and carotid ultrasounds. She will be admitted to the third floor for stroke/TIA protocol. We will continue her medications for her bipolar disorder with depression. She is also on gabapentin possibly for chronic pain or for mood stabilization. For the elevated troponin, Dr. Santo does not believe it is cardiac. There were no EKG changes. The patient has no cardiac complaints. Per Dr. Santo's recommendations we will start aspirin therapy daily and atorvastatin. She is on propranolol but I will slowly convert her to metoprolol. She had a gastric bypass and her BMI is still 50. Clearly it was ineffective. The patient should engage in aggressive weight loss management program. - Time Time Spent with patient: 35 or more minutes Medications reviewed and adjusted accordingly: Yes Anticipated discharge: Home Within: within 24 hours
--- NOTE | 2019-12-15 10:44 | EKG REPORT ---
SEVERITY:- NORMAL ECG - SINUS RHYTHM BORDERLINE T ABNORMALITIES, ANT-LAT LEADS : Confirmed by: Nik Ly 15-Dec-2019 10:44:19
[2019-12-15 10:46] LABS: CREATINE KINASE 47 U/L (30-135); TRIGLYCERIDES 112 mg/dL (<150)
[2019-12-15 10:57] LABS: DIRECT LDL 90 mg/dL (<100)
[2019-12-15 10:59] LABS: CREATINE KINASE MB 1.71 ng/mL (<4.55)
[2019-12-15 11:04] LABS: TROPONIN I 0.267 ng/mL
[2019-12-15] MEDS ORDERED: (PENDING PHARMACY ID) (Gabapentin [Gabapentin] 800 MG) PO SCH (12:00)
[2019-12-15] MEDS: ASPIRIN 81 MG TABLET, ENT COATED PO SCH (12:21)
[2019-12-15] MEDS: ENOXAPARIN SODIUM INJ 40 MG/0.4 ML DISP.SYRIN SUBCUT SCH (12:21)
[2019-12-15] MEDS: FAMOTIDINE 20 MG TABLET PO SCH ×2 (12:21→21:46)
--- NOTE | 2019-12-15 12:34 | PDOC CONSULTATION ---
Consultation Consult Date: 12/15/19 Attending physician:: NAIN PASCUAL Provider Consulted: DARCY DUEÑAS Consult reason:: abnormal troponin History of Present Illness Admission Date/PCP: 12/15/19 08:08 YEE RAPHAEL MD Patient complains of: R sided weakness, memory loss History of Present Illness: VALDO SANTANA is a 54 year old female with past medical history significant for bipolar disorder as well as manic depression and obesity who is seen today in consultation for evaluation of abnormal troponin value. The patient starts her story off at Wednesday of this week when she was awoken by family members to take her neighbor to pickler helper medications. She does not remember anything further but is later told that she got in the car, pulled into the neighbor's driveway, when he came out she pulled away and the next thing she knew she awoke and is in [place] driving. She did not present to the hospital. 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 She explains that family again awoke her yesterday to take a family member to run errands, when she sat down on the toilet in the bathroom she became unaware of her surroundings then notes she remembers becoming aware and flailing her arms everywhere. Her friend came into the bathroom to assist her and said her face and was purple as well as her right arm. She also noted right arm numbness and tingling perhaps some weakness with writes sided facial droop and notes that she had an inability to speak clearly. Police arrived and administered oxygen therapy she said which helped her "start coming back." The patient admits to resolution of all symptoms. 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 She denies any recent history of angina, dyspnea, presyncope/syncope, palpitations, orthopnea, or PND. Patient reports snoring like a "freight train" which her has told her before. She has never had a sleep study. She has no previous cardiac history from chart review she had an outpatient echo done in the system at [facility] 09/2019 with preserved left ventricular ejection fraction and no other significant abnormalities. There is also a pharmacologic myocardial perfusion SPECT July 2018 read as normal. She is a never smoker She has no family history in primary relatives of CAD or CVA Past Medical History Cardiac Medical History: Denies: Congestive Heart Failure, Hypertension Pulmonary Medical History: Reports: Bronchitis - w/ RAD, Pneumonia Denies: Asthma, Tuberculosis Neurological Medical History: Denies: Seizures Endocrine Medical History: Reports: Diabetes Mellitus Type 2 Musculoskeltal Medical History: Reports: Arthritis - bilateral knees Psychiatric Medical History: Reports: Bipolar Disorder, Depression Hematology: Reports: Anemia Past Surgical History Past Surgical History: Reports: Cholecystectomy, Gastric Bypass Surgery - 1994, Tonsillectomy, Tubal Ligation Denies: Hysterectomy Social History Lives with: Family Smoking Status: Never Smoker Frequency of Alcohol Use: Occasional Hx Recreational Drug Use: No Drugs: None Hx Prescription Drug Abuse: No Family History Family History: Reviewed & Not Pertinent, CAD, Hypertension Parental Family History Reviewed: Yes Children Family History Reviewed: Yes Sibling(s) Family History Reviewed.: Yes Medication/Allergy Home Medications: Escitalopram Oxalate [Lexapro] 20 mg PO DAILY 06/14/18 Risperidone [Risperdal] 3 mg PO Q12 06/14/18 Aspirin/Caffeine [Bc Powder Packet] 2 pkt PO Q8 12/14/19 Cetirizine HCl [Zyrtec 10 mg Tablet] 10 mg PO DAILY 12/14/19 Diphenhydramine HCl [Benadryl 25 mg Capsule] 25 mg PO Q6 12/14/19 Gabapentin 800 mg PO Q6 12/14/19 Propranolol HCl [Inderal 10 mg Tablet] 10 mg PO Q12 12/14/19 Tolterodine Tartrate [Tolterodine Tartrate ER] 4 mg PO DAILY 12/14/19 Allergies/Adverse Reactions: ciprofloxacin [From Cipro] Allergy (Verified 12/13/19 11:48) Review of Systems Review of Systems: 14 systems reviewed and negative except as otherwise noted above in the HPI. Physical Exam Vital Signs: Temp Pulse Resp BP Pulse Ox 97.5 F 82 20 126/75 H 100 12/15/19 04:00 12/15/19 03:50 12/15/19 06:02 12/15/19 12:01 12/15/19 12:01 Intake & Output 12/14/19 12/15/19 12/16/19 06:59 06:59 06:59 Weight 140.614 kg Exam: General Appearance: no acute distress, obese, no diaphoresis. Eyes:. Pupils equal round reactive to light, no injection no jaundice. EOMI HENT: atraumatic, oropharynx is clear with moist mucous membranes and acceptable dentition. Neck: supple, no masses, no thyromegaly and normal jugular venous pressure. Lungs: clear to auscultation, no wheezing/rhonchi, normal respiratory effort. Cardiovascular: Palpation of heart: normal PMI, no thrills. Auscultation of Heart: normal rate and rhythm, normal S1 and S2, without murmurs, no S3, no S4. Carotid pulses: no bruit, normal amplitude. Abdominal aorta: no bruit, normal amplitude. Radial pulses: normal amplitude. Femoral pulses: no bruit, normal amplitude. Pedal pulses: normal amplitude. Examination of extremities for edema and/or varicosities: trivial pretibial bilateral edema (states this is baseline and chronic) Abdomen: normal bowel sounds, soft, non-tender, no masses, no hepatomegaly, no splenomegaly. Musculoskeletal: normal movement of all extremities. Extremities: no clubbing, no cyanosis. Integumentary: warm and dry bilaterally with no ulcers. Psychiatric: awake, alert and oriented x 3. Appropriate mood and affect. Results Laboratory Results: 12/14/19 15:15 12/14/19 15:15 12/14/19 12/14/19 12/15/19 15:15 15:15 03:18 WBC 6.5 RBC 4.66 Hgb 12.9 Hct 39.9 MCV 86 MCH 27.6 MCHC 32.2 RDW 15.6 H Plt Count 203 Seg Neutrophils % 70.3 Sodium 139.7 Potassium 4.2 Chloride 109 H Carbon Dioxide 25 Anion Gap 6 BUN 18 Creatinine 0.98 Est GFR ( Amer) > 60 Glucose 91 Calcium 8.8 Total Bilirubin 0.2 AST 26 Alkaline Phosphatase 97 Total Protein 6.7 Albumin 3.6 Triglycerides Cholesterol LDL Cholesterol Direct VLDL Cholesterol HDL Cholesterol Urine Color YELLOW Urine Appearance SLIGHTLY-CLOUDY Urine pH 5.0 Ur Specific [place] 1.035 Urine Protein 30 H Urine Glucose (UA) NEGATIVE Urine Ketones NEGATIVE Urine Blood NEGATIVE Urine Nitrite NEGATIVE Ur Leukocyte Esterase TRACE H Urine WBC (Auto) 6 Urine RBC (Auto) 7 12/15/19 10:20 WBC RBC Hgb Hct MCV MCH MCHC RDW Plt Count Seg Neutrophils % Sodium Potassium Chloride Carbon Dioxide Anion Gap BUN Creatinine Est GFR ( Amer) Glucose Calcium Total Bilirubin AST Alkaline Phosphatase Total Protein Albumin Triglycerides 112 Cholesterol 157.00 LDL Cholesterol Direct 90 VLDL Cholesterol 22.0 HDL Cholesterol 41 Urine Color Urine Appearance Urine pH Ur Specific [place] Urine Protein Urine Glucose (UA) Urine Ketones Urine Blood Urine Nitrite Ur Leukocyte Esterase Urine WBC (Auto) Urine RBC (Auto) 12/14/19 12/14/19 12/14/19 15:15 17:25 18:11 Creatine Kinase CK-MB (CK-2) Troponin I 1.310 Cancelled 1.280 12/15/19 12/15/19 10:20 10:20 Creatine Kinase 47 CK-MB (CK-2) 1.71 Troponin I 0.267 EKG Comments: Personal interpretation of EKG 12/15/2019 at 10:36 AMsinus rhythm 71 bpm, normal [place] interval, normal axis, low voltage, ST-T wave abnormality anterior laterally, normal QT interval. Abnormal EKG. Impressions: Head CT 12/14/19 15:03 IMPRESSION: NORMAL BRAIN CT WITHOUT CONTRAST. EVIDENCE OF ACUTE STROKE: NO. Chest X-Ray 12/14/19 15:09 IMPRESSION: HEART ENLARGED WITHOUT FAILURE. NO OTHER SIGNIFICANT RADIOGRAPHIC FINDING IN THE CHEST. Assessment & Plan - Diagnosis (2) Elevated troponin Is this a current diagnosis for this admission?: Yes (3) Morbid obesity with BMI of 45.0-49.9, adult Is this a current diagnosis for this admission?: Yes (4) TIA (transient ischemic attack) Is this a current diagnosis for this admission?: Yes - Notes Notes: Abnormal troponin The patient has an abnormal lab value which unfortunately is clinically irrelevant concerning the patient's presenting symptoms. The patient does have symptoms consistent with a possible TIA and I have spoken with the primary team regarding possible further evaluation with brain imaging as this can be a known cause of troponin elevation. The patient otherwise has had no symptoms consistent with an acute coronary syndrome and we are simply dealing with an abnormal lab value that is out of context of the clinical situation. In support of this statement is a lack of symptoms which would be described as even atypical angina as well as a very low CK-MB value of 1.7. -I discussed with the patient starting aspirin 81 mg daily for primary prevention and she is amenable. -Add Toprol-XL 12.5 mg once daily if tolerated. Vital signs within normal limits this morning. Lipids reviewed LDL of 90. It is not unreasonable to start moderate intensity statin therapy pending further evaluation with atorvastatin 20 mg nightly. The patient has a previous myocardial perfusion SPECT which is of low quality noted in the comments and I would suspect this due to large body habitus. I would recommend a CTA coronary study with calcium scoring for further re- stratification but this is not available here. I have discussed with the patient if pending further evaluation for possible stroke, if her evaluation is negative and she has no further symptoms concerning for angina she would be discharged with very close follow-up within 1 week in clinic for imaging discussed above. -I feel an invasive assessment in an asymptomatic patient with no cardiac symptoms on presentation and simply an abnormal lab value is certainly not worth entertaining with the risk outweighing the benefit at this time. TIA Management and further evaluation per primary team Bipolar disorder Continue her outpatient regimen. For the consultation, please call with any questions. Dr. Jimenes will resume rounding for [facility] Card[facility] Wednesday. If the patient is discharged prior to Wednesday the patient was advised to call the office and will have follow-up within 7 days. She is familiar with our office as her mother receives primary care in the same building.
[2019-12-15] MEDS: GABAPENTIN 400 MG CAPSULE PO SCH ×3 (13:50→23:19)
[2019-12-15] MEDS: ESCITALOPRAM OXALATE 10 MG TABLET PO SCH (13:50)
[2019-12-15] MEDS: DIPHENHYDRAMINE HCL 25 MG CAPSULE PO SCH ×3 (13:50→23:19)
[2019-12-15] MEDS: ACETAMINOPHEN 325 MG TABLET PO PRN ×2 (13:57→21:43)
[2019-12-15] MEDS: PROPRANOLOL HCL 10 MG TABLET PO SCH (21:46)
[2019-12-15] MEDS ORDERED: ATORVASTATIN CALCIUM 20 MG TABLET PO SCH (22:00)
[2019-12-15] MEDS ORDERED: (PENDING PHARMACY ID) (Risperidone [Risperdal] 3 MG) PO SCH (22:00)
[2019-12-16] MEDS: GABAPENTIN 400 MG CAPSULE PO SCH ×2 (05:45→13:22)
[2019-12-16] MEDS: DIPHENHYDRAMINE HCL 25 MG CAPSULE PO SCH ×2 (05:45→14:36)
[2019-12-16] MEDS: ACETAMINOPHEN 325 MG TABLET PO PRN (08:23)
[2019-12-16] MEDS ORDERED: CETIRIZINE 10 MG TABLET PO SCH (10:00)
[2019-12-16] MEDS ORDERED: (PENDING PHARMACY ID) (Tolterodine Tartrate [Tolterodine Tartrate Er] 4 MG) PO SCH (10:00)
[2019-12-16] MEDS ORDERED: METOPROLOL SUCCINATE 25 MG TAB.SR.24H PO SCH (10:00)
[2019-12-16] MEDS: PROPRANOLOL HCL 10 MG TABLET PO SCH (10:49)
[2019-12-16] MEDS: TOLTERODINE TARTRATE 1 MG TABLET PO SCH (10:49)
[2019-12-16] MEDS: ESCITALOPRAM OXALATE 10 MG TABLET PO SCH (10:49)
[2019-12-16] MEDS: ASPIRIN 81 MG TABLET, ENT COATED PO SCH (10:49)
[2019-12-16] MEDS: FAMOTIDINE 20 MG TABLET PO SCH (10:49)
[2019-12-16] MEDS: RISPERIDONE 1 MG TABLET PO SCH (10:49)
[2019-12-16] MEDS: ENOXAPARIN SODIUM INJ 40 MG/0.4 ML DISP.SYRIN SUBCUT SCH (10:50)
--- NOTE | 2019-12-16 13:34 | PDOC DISCHARGE SUMMARY ---
Impression - Admit/DC Date/PCP Admission Date/Primary Care Provider: 12/15/19 08:08 YEE RAPHAEL MD Discharge Date: 12/16/19 - Discharge Diagnosis (1) TIA (transient ischemic attack) Is this a current diagnosis for this admission?: Yes (2) Elevated troponin Is this a current diagnosis for this admission?: Yes (3) Morbid obesity with BMI of 45.0-49.9, adult Is this a current diagnosis for this admission?: Yes (4) Back pain Is this a current diagnosis for this admission?: Yes (5) Depression Is this a current diagnosis for this admission?: Yes (6) Bipolar disease, chronic Is this a current diagnosis for this admission?: Yes - Assessment Summary: 12/15/2019 The patient will be admitted to observation status. For the work-up for a likely TIA I have ordered an MRI study and carotid ultrasounds. She will be admitted to the third floor for stroke/TIA protocol. We will continue her medications for her bipolar disorder with depression. She is also on gabapentin possibly for chronic pain or for mood stabilization. For the elevated troponin, Dr. Santo does not believe it is cardiac. There were no EKG changes. The patient has no cardiac complaints. Per Dr. Santo's recommendations we will start aspirin therapy daily and atorvastatin. She is on propranolol but I will slowly convert her to metoprolol. She had a gastric bypass and her BMI is still 50. Clearly it was ineffective. The patient should engage in aggressive weight loss management program. 12/16/2019 The patient is doing well. She states that the right side of her face still feels a little funny but she has no facial droop. Multiple family members were in the room today. The MRI results were made available and she had a small lesion in the left parietal area. Radiology did not feel this represented a stroke but more of a lesion that could be related to a demyelinating process, migraine or other. I told the patient that she needs to continue the aspirin as well as the low-dose beta-marylou and statin therapy that cardiology recommended. She will need to lose weight to help reduce risk as well. During our discussion it was pointed out that she has been having syncopal episodes. She stated that she got in her car and drove to [place] and back and does not remember it. I told her that she absolutely must see a neurologist as well as cardiology. - Additional Information Resuscitation Status: Full Code Referrals: YEE RAPHAEL MD [Primary Care Provider] - Follow up as needed KOBI ODELL MD [NO LOCAL MD] - DARCY SANTO MD [ACTIVE PROVISIONAL STAFF] - Prescriptions: Atorvastatin Calcium [Lipitor 20 mg Tablet] 20 mg PO QHS 30 Days #30 tablet Metoprolol Succinate [Toprol Xl 25 mg Tab.sr] 12.5 mg PO DAILY 30 Days #15 tab.sr.24h Home Medications: Escitalopram Oxalate [Lexapro] 20 mg PO DAILY 06/14/18 Risperidone [Risperdal] 3 mg PO Q12 06/14/18 Aspirin/Caffeine [Bc Powder Packet] 2 pkt PO Q8 12/14/19 Cetirizine HCl [Zyrtec 10 mg Tablet] 10 mg PO DAILY 12/14/19 Diphenhydramine HCl [Benadryl 25 mg Capsule] 25 mg PO Q6 12/14/19 Propranolol HCl [Inderal 10 mg Tablet] 10 mg PO Q12 12/14/19 Tolterodine Tartrate [Tolterodine Tartrate ER] 4 mg PO DAILY 12/14/19 Aspirin [Ecotrin 81 mg EC Tablet] 81 mg PO DAILY tabec 12/16/19 Atorvastatin Calcium [Lipitor 20 mg Tablet] 20 mg PO QHS 30 Days #30 tablet 12/16/19 Famotidine [Pepcid 20 mg Tablet] 20 mg PO Q12 tablet 12/16/19 Metoprolol Succinate [Toprol Xl 25 mg Tab.sr] 12.5 mg PO DAILY 30 Days #15 tab.sr.24h 12/16/19 History of Present Illiness History of Present Illness: VALDO SANTANA is a 54 year old female who presented to the emergency department 3:00 yesterday afternoon. She states that when she was home she was in the bathroom. She began flailing around and could not talk. She reports that the right side of her face, right arm and in fact the whole right side of her body was purple. She noticed a droop on the right side of her face. The right arm felt numb and tingly. Many hours later she feels that the right side of her face is not quite normal yet. She still remains somewhat fuzzy headed and believes that her left arm is swollen. A CT scan of the head was negative. All of her laboratory studies were normal with the exception of a troponin that was 1.3. She never complained of any chest discomfort or any symptoms related to acute coronary syndrome. At the time of this encounter she was slightly dysarthric but her mouth was very dry. She had symmetric strength and sensation. Her blood pressure was controlled. All of her symptoms had resolved. Despite this the emergency department felt the prudent to admit the patient for ongoing work-up. The patient will be admitted to observation status. I have ordered an MRI and carotid Dopplers. Because of the elevated troponin I did have cardiology see the patient. They do not feel that the troponin is elevated from a cardiac source. It could be related to a MANAGER FORENSIC process. Hospital Course Hospital Course: Unremarkable. See above. Physical Exam Vital Signs: Temp Pulse Resp BP Pulse Ox 97.5 F 96 18 126/70 H 96 12/16/19 12:14 12/16/19 12:14 12/16/19 12:14 12/16/19 12:14 12/16/19 12:14 Intake & Output 12/15/19 12/16/19 12/17/19 06:59 06:59 06:59 Intake Total 1559 480 Balance 1559 480 Weight 140.614 kg 148.4 kg General appearance: PRESENT: no acute distress, cooperative, morbidly obese, well-developed Respiratory exam: PRESENT: clear to auscultation manda, symmetrical, unlabored. ABSENT: prolonged expiratory phas, rales, rhonchi, tachypnea, wheezes Cardiovascular exam: PRESENT: RRR, +S1, +S2 GI/Abdominal exam: PRESENT: normal bowel sounds, soft, other - Pendulous abdomen. ABSENT: tenderness Neurological exam: PRESENT: alert, oriented to person, oriented to place, oriented to time, oriented to situation, CN II-XII grossly intact. ABSENT: motor sensory deficit Psychiatric exam: ABSENT: agitated, anxious Results Laboratory Results: WBC 6.5 10^3/uL (4.0-10.5) 12/14/19 15:15 RBC 4.66 10^6/uL (3.72-5.28) 12/14/19 15:15 Hgb 12.9 g/dL (12.0-15.5) 12/14/19 15:15 Hct 39.9 % (36.0-47.0) 12/14/19 15:15 MCV 86 fl (80-97) 12/14/19 15:15 MCH 27.6 pg (27.0-33.4) 12/14/19 15:15 MCHC 32.2 g/dL (32.0-36.0) 12/14/19 15:15 RDW 15.6 % (11.5-14.0) H 12/14/19 15:15 Plt Count 203 10^3/uL (150-450) 12/14/19 15:15 Lymph % (Auto) 13.3 % (13-45) 12/14/19 15:15 [place] % (Auto) 12.7 % (3-13) 12/14/19 15:15 Eos % (Auto) 3.0 % (0-6) 12/14/19 15:15 Baso % (Auto) 0.7 % (0-2) 12/14/19 15:15 Absolute Neuts (auto) 4.5 10^3/uL (1.7-8.2) 12/14/19 15:15 Absolute Lymphs (auto) 0.9 10^3/uL (0.5-4.7) 12/14/19 15:15 Absolute Monos (auto) 0.8 10^3/uL (0.1-1.4) 12/14/19 15:15 Absolute Eos (auto) 0.2 10^3/uL (0.0-0.6) 12/14/19 15:15 Absolute Basos (auto) 0.0 10^3/uL (0.0-0.2) 12/14/19 15:15 Seg Neutrophils % 70.3 % (42-78) 12/14/19 15:15 Sodium 139.7 mmol/L (137-145) 12/14/19 15:15 Potassium 4.2 mmol/L (3.6-5.0) 12/14/19 15:15 Chloride 109 mmol/L (98-107) H 12/14/19 15:15 Carbon Dioxide 25 mmol/L (22-30) 12/14/19 15:15 Anion Gap 6 (5-19) 12/14/19 15:15 BUN 18 mg/dL (7-20) 12/14/19 15:15 Creatinine 0.98 mg/dL (0.52-1.25) 12/14/19 15:15 Est GFR ( Amer) > 60 (>60) 12/14/19 15:15 Est GFR (MDRD) Non-Af > 60 (>60) 12/14/19 15:15 Glucose 91 mg/dL (75-110) 12/14/19 15:15 POC Glucose 92 mg/dL (70-110) 12/14/19 15:57 Calcium 8.8 mg/dL (8.4-10.2) 12/14/19 15:15 Total Bilirubin 0.2 mg/dL (0.2-1.3) 12/14/19 15:15 Direct Bilirubin 0.0 mg/dL (0.0-0.4) 12/14/19 15:15 Neonat Total Bilirubin Not Reportable 12/14/19 15:15 Neonat Direct Bilirubin Not Reportable 12/14/19 15:15 Neonat Indirect Bili Not Reportable 12/14/19 15:15 AST 26 U/L (14-36) 12/14/19 15:15 ALT 13 U/L (<35) 12/14/19 15:15 Alkaline Phosphatase 97 U/L (38-126) 12/14/19 15:15 Creatine Kinase 47 U/L (30-135) 12/15/19 10:20 CK-MB (CK-2) 1.71 ng/mL (<4.55) 12/15/19 10:20 Troponin I 0.267 ng/mL 12/15/19 10:20 Total Protein 6.7 g/dL (6.3-8.2) 12/14/19 15:15 Albumin 3.6 g/dL (3.5-5.0) 12/14/19 15:15 Triglycerides 112 mg/dL (<150) 12/15/19 10:20 Cholesterol 157.00 mg/dL (0-200) 12/15/19 10:20 LDL Cholesterol Direct 90 mg/dL (<100) 12/15/19 10:20 VLDL Cholesterol 22.0 mg/dL (10-31) 12/15/19 10:20 HDL Cholesterol 41 mg/dL (>40) 12/15/19 10:20 Urine Color YELLOW 12/15/19 03:18 Urine Appearance SLIGHTLY-CLOUDY 12/15/19 03:18 Urine pH 5.0 (5.0-9.0) 12/15/19 03:18 Ur Specific [place] 1.035 12/15/19 03:18 Urine Protein 30 mg/dL (NEGATIVE) H 12/15/19 03:18 Urine Glucose (UA) NEGATIVE mg/dL (NEGATIVE) 12/15/19 03:18 Urine Ketones NEGATIVE mg/dL (NEGATIVE) 12/15/19 03:18 Urine Blood NEGATIVE (NEGATIVE) 12/15/19 03:18 Urine Nitrite NEGATIVE (NEGATIVE) 12/15/19 03:18 Urine Bilirubin NEGATIVE (NEGATIVE) 12/15/19 03:18 Urine Urobilinogen NEGATIVE mg/dL (<2.0) 12/15/19 03:18 Ur Leukocyte Esterase TRACE (NEGATIVE) H 12/15/19 03:18 Urine WBC (Auto) 6 /HPF 12/15/19 03:18 Urine RBC (Auto) 7 /HPF 12/15/19 03:18 Urine Bacteria (Auto) TRACE /HPF 12/15/19 03:18 Squamous Epi Cells Auto 9 /HPF 12/15/19 03:18 Urine Mucus (Auto) OCC /LPF 12/15/19 03:18 Urine Ascorbic Acid NEGATIVE (NEGATIVE) 12/15/19 03:18 12/14/19 12/14/19 12/14/19 15:15 17:25 18:11 CK-MB (CK-2) Troponin I 1.310 Cancelled 1.280 12/15/19 10:20 CK-MB (CK-2) 1.71 Troponin I 0.267 Impressions: Head CT 12/14/19 15:03 IMPRESSION: NORMAL BRAIN CT WITHOUT CONTRAST. EVIDENCE OF ACUTE STROKE: NO. Chest X-Ray 12/14/19 15:09 IMPRESSION: HEART ENLARGED WITHOUT FAILURE. NO OTHER SIGNIFICANT RADIOGRAPHIC FINDING IN THE CHEST. Plan Health Concerns: She had the elevated troponin and needs to follow-up with cardiology. Of note, Dr. Leggett was on 3 S. and he recognized the patient. He stated that he is actually seen the patient before. She will follow-up with Dr. Leggett. If I had known that I would have consulted Dr. Nava yesterday. I did asked the patient specifically if she had a heart doctor and she said no. Plan of Treatment: Continue beta-marylou, statin therapy and aspirin therapy. She needs to start following a low-salt diet and lose weight. Goals: Further evaluation of her neurologic symptoms with a neurologist. Further evaluation of her elevated troponin with cardiology. Time Spent: Greater than 30 Minutes Stroke Is this a Stroke Patient?: Yes Stroke Pt being discharged on Anti-thrombolytic therapy?: Yes Stroke Pt being discharged on Anti-coagulation therapy?: No Reason(s) for not prescribing Anti-coagulation therapy:: Not indicated Stroke Pt being discharged on Statins?: Yes Acute Heart Failure - Is this a Heart Failure Patient?: No
--- NOTE | 2019-12-16 14:25 | RADIOLOGY REPORT (SQ) ---
EXAM DESCRIPTION: MRI HEAD WITHOUT COMPLETED DATE/TIME: 12/16/2019 9:21 am REASON FOR STUDY: TIA COMPARISON: None. TECHNIQUE: Multiplanar imaging includes non-contrasted T1, T2, FLAIR, and diffusion with ADC map seq uences. Images stored on PACS. LIMITATIONS: None. FINDINGS: ANATOMY: No anomalies. Normal vascular flow voids. Pituitary fossa normal. CSF SPACES: Normal in size and contour. No hemorrhage. CEREBRUM: Sulci and gyri normal in size and contour. Single small focus of signal alteration on FLAI R imaging left parietal lobe white matter. . No evidence of hemorrhage, mass, or extraaxial fluid c ollection. POSTERIOR FOSSA: No signal alteration. No hemorrhage. No edema, masses or mass effect. Internal jennifer tory canals, cerebello-pontine angles, mastoids normal. DIFFUSION IMAGING: Negative for acute or sub-acute infarction. ORBITS: No masses. Globes normal. PARANASAL SINUSES: No fluid levels. Mucosa normal. OTHER: No other significant finding. IMPRESSION: Single focus of signal alteration on FLAIR imaging in the left parietal white matter. D ifferential includes demyelinating disease, microvascular ischemia, migraine. EVIDENCE OF ACUTE STROKE: NO. TECHNICAL DOCUMENTATION: JOB ID: [id number] [employer]- All Rights Reserved Reading location - IP/workstation name: [email or web address]
[2019-12-16 14:56] VITALS: BP 113/73
== END 2019-12-16 16:06 | disposition home or self-care (01) ==
LOC: ER 14:55 → EH 12-15 08:08 → 3S 12-15 12:48
PROVIDERS: ADMIT Hospitalist; ATTEND Hospitalist
DX: G45.9 Transient cerebral ischemic attack, unspecified (principal); R79.89 Other specified abnormal findings of blood chemistry; E66.01 Morbid (severe) obesity due to excess calories; M54.5 Low back pain; F31.9 Bipolar disorder, unspecified; R68.2 Dry mouth, unspecified; R06.83 Snoring; R60.0 Localized edema; R25.1 Tremor, unspecified; R53.1 Weakness; M54.2 Cervicalgia; M13.862 Other specified arthritis, left knee; M13.861 Other specified arthritis, right knee; Z98.84 Bariatric surgery status; Z79.899 Other long term (current) drug therapy; Z68.43 Body mass index [BMI] 50.0-59.9, adult; Z86.69 Personal history of other diseases of the nervous system and sense organs; Z90.49 Acquired absence of other specified parts of digestive tract; Z82.49 Family history of ischemic heart disease and other diseases of the circulatory system; Z79.82 Long term (current) use of aspirin
CPT/HCPCS: 93005 ×2; 99285; 96372; 96374; 96375; 36415 ×2; 82553; 82962; 82550; 85025; 80053; 81001; 84484 ×2; 80061; 70551; 71045; 70450; 93010 ×2; 97161; G0378 ×3; J3490 ×5; J1650; J2405

== ENCOUNTER 2020-02-04 21:28 | Emergency (ER) | payer BC ==
[2020-02-04 21:36] VITALS: BP 126/73
[2020-02-04] MEDS ORDERED: DIPH/PERTUSS(ACELL)/TETANUS VAC/PF 0.5 ML SYR (>=10YO) IM ONE (21:50)
[2020-02-04] MEDS ORDERED: AMOXICILLIN TR/POT CLAVULANATE 875-125 MG TAB PO ONE (21:50)
--- NOTE | 2020-02-04 22:00 | ER Document Report ---
HPI - HPI Time Seen by Provider: 02/04/20 21:45 Pain Level: 4 Notes: CHIEF COMPLAINT: Right lateral foot pain for 3 days HPI: 54-year-old morbidly obese female who is not diabetic presenting for evaluation of right lateral foot pain with some redness over the last 3 days. No fever. She is concerned about an infection in the foot ROS: See HPI - all other systems were reviewed and are otherwise negative Constitutional: no fever Integumentary: + rash Allergy: no hives Musculoskeletal: + extremity pain or swelling Neurological: no numbness/tingling, no weakness MEDICATIONS: I agree with the patient medications as charted by the RN. ALLERGIES: I agree with the allergies as charted by the RN. PAST MEDICAL HISTORY/PAST SURGICAL HISTORY: Reviewed and agree as charted by RN. SOCIAL HISTORY: Reviewed and agree as charted by RN. FAMILY HISTORY: No significant familial comorbid conditions directly related to patient complaint EXAM: Reviewed vital signs as charted by RN. CONSTITUTIONAL: Alert and oriented and responds appropriately to questions. Well-appearing; well-nourished HEAD: Normocephalic; atraumatic EYES: PERRL; Conjunctivae clear, sclerae non-icteric ENT: normal nose; no rhinorrhea; moist mucous membranes NECK: Supple without meningismus CARD: symmetric distal pulses RESP: Normal chest excursion without splinting or tachypnea ABD/GI: non-distended BACK: The back appears normal EXT: Normal ROM in all joints; no cyanosis, no effusions, no edema. There is a small cut noted on the lateral aspect of the right foot just proximal to the MTP region of the fifth toe. No visible or palpable foreign body. There is some surrounding erythema noted in this region measuring approximately 1 to 2 cm in diameter. No fluctuant or indurated regions. Dorsalis pedis and posterior tibial pulses are present in the right foot and ankle. Sensation is intact in the toes with capillary refill less than 3 seconds. There is mild tenderness around this wound area on palpation SKIN: Normal color for age and race; warm; dry; good turgor NEURO: Moves all extremities equally; Motor and sensory function intact PSYCH: The patient's mood and manner are appropriate. Grooming and personal hygiene are appropriate. MDM: 54-year-old female with a small cut with a small amount of redness or cellulitis without a definitive trauma history over the last 3 days. Will obtain x-ray to evaluate for foreign body or bony injury. If x-ray does not show acute findings will discharge home on Augmentin given her Cipro allergy, close follow-up with PCP - REPRODUCTIVE Reproductive: DENIES: : Past Medical History - Social History Smoking Status: Never Smoker Chew tobacco use (# tins/day): No Frequency of alcohol use: Rare Drug Abuse: None Family History: Reviewed & Not Pertinent, CAD, Hypertension, Other - Schizophrenia and bipolar disorder Patient has suicidal ideation: No Patient has homicidal ideation: No - Past Medical History Cardiac Medical History: Denies: Hx Congestive Heart Failure, Hx Hypertension Pulmonary Medical History: Reports: Hx Bronchitis - w/ RAD, Hx Pneumonia Denies: Hx Asthma, Hx Tuberculosis Neurological Medical History: Denies: Hx Seizures Endocrine Medical History: Reports: Hx Diabetes Mellitus Type 2 - The patient actually reported hypoglycemia to me and denied that she had DM Renal/ Medical History: Denies: Hx Peritoneal Dialysis Musculoskeletal Medical History: Reports Hx Arthritis - bilateral knees Psychiatric Medical History: Reports: Hx Bipolar Disorder, Hx Depression Denies: Hx Schizophrenia Past Surgical History: Reports: Hx Abdominal Surgery - gastric bypass, Hx Cholecystectomy, Hx Gastric Bypass Surgery - 1994, Hx Tonsillectomy, Hx Tubal Ligation. Denies: Hx Hysterectomy - Immunizations Immunizations up to date: Yes Hx Diphtheria, Pertussis, Tetanus Vaccination: Yes Vertical Provider Document - INFECTION CONTROL TRAVEL OUTSIDE OF THE [place] IN LAST 30 DAYS: No Course - Re-evaluation Re-evalutation: 02/04/20 22:35 I do not visualize air or a foreign body in the lateral aspect of the right foot adjacent to the distal MTP region of the fifth toe. Will continue on antibiotics, short course of pain medication follow-up PCP with return instructions - Vital Signs Vital signs: Temp Pulse Resp BP Pulse Ox 98.8 F 79 18 126/73 H 95 02/04/20 21:33 02/04/20 21:33 02/04/20 21:33 02/04/20 21:33 02/04/20 21:33 Discharge - Discharge Clinical Impression: Cellulitis of foot, right Condition: Stable Disposition: HOME, SELF-CARE Instructions: Cellulitis ([facility]) Additional Instructions: Take medications as prescribed. Follow-up closely with your primary care provider for reevaluation of the infected area on the right foot. If you notice increasing redness or swelling or develop a fever greater than 101 return for reevaluation Prescriptions: Amoxicillin/Potassium Clav [Augmentin 875-125 Tablet] 1 tab PO Q12 #20 tablet Hydrocodone/Acetaminophen [[place] 5-325 mg Tablet] 1 tab PO Q4 PRN #15 tablet PRN Reason: Referrals: YEE RAPHAEL MD [Primary Care Provider] - Follow up as needed
[2020-02-04] MEDS ORDERED: HYDROCODONE/ACETAMINOPHEN 5-325 MG (6 TAB/ER DISP) PO PRN (22:38)
--- NOTE | 2020-02-04 22:49 | RADIOLOGY REPORT (SQ) ---
CLINICAL INDICATION: lateral infection. . TECHNIQUE: 3 view(s) were obtained of the right foot. COMPARISON: None. FINDINGS: No acute displaced fracture is identified of the foot. Hallux valgus. Osteoarthritis. Soft tissue swelling. Anterior calcaneal spurring. IMPRESSION: No evidence of acute displaced fracture of the foot. Soft tissue swelling. No plain radiographic evidence of osteomyelitis
== END 2020-02-04 23:02 | disposition home or self-care (01) ==
LOC: ER 21:28
DX: L03.115 Cellulitis of right lower limb (principal); S91.311A Laceration without foreign body, right foot, initial encounter; X58.XXXA Exposure to other specified factors, initial encounter; M79.671 Pain in right foot; E66.01 Morbid (severe) obesity due to excess calories; Z23 Encounter for immunization
CPT/HCPCS: 99283; 90471; 73630; 90715; J3490

== ENCOUNTER 2020-02-11 02:44 | Emergency (ER) | payer BC ==
[2020-02-11 03:32] LABS: ABSOLUTE BASOPHILS # (AUTO) 0.1 10^3/uL (0.0-0.2); ABSOLUTE EOSINOPHILS # (AUTO) 0.3 10^3/uL (0.0-0.6); ABSOLUTE LYMPHOCYTES (AUTO) 0.6 10^3/uL (0.5-4.7); ABSOLUTE MONOCYTES (AUTO) 0.5 10^3/uL (0.1-1.4); BASOPHILS % (AUTO) 1.7 % (0-2); HEMATOCRIT 33.3 % (36.0-47.0); HEMOGLOBIN 10.9 g/dL (12.0-15.5); LYMPHOCYTES % (AUTO) 16.8 % (13-45); MEAN CORPUSCULAR HEMOGLOBIN 26.8 pg (27.0-33.4); MEAN CORPUSCULAR HGB CONC 32.6 g/dL (32.0-36.0); MEAN CORPUSCULAR VOLUME 82 fl (80-97); MONOCYTES % (AUTO) 13.9 % (3-13); PLATELET COUNT 219 10^3/uL (150-450); RED BLOOD COUNT 4.05 10^6/uL (3.72-5.28); RED CELL DISTRIBUTION WIDTH 16.1 % (11.5-14.0); SEGMENTED NEUTROPHILS % (AUTO) 58.6 % (42-78); TOTAL CELLS COUNTED % (AUTO) 100 %; WHITE BLOOD COUNT 3.4 10^3/uL (4.0-10.5)
--- NOTE | 2020-02-11 03:45 | RADIOLOGY REPORT (SQ) ---
EXAM DESCRIPTION: XR CHEST 2 VIEWS COMPLETED DATE/TME: 02/11/2020 00:00 CLINICAL HISTORY: Chest pain COMPARISON: 12/14/2019 FINDINGS: Frontal and lateral views of the chest. Cardiomediastinal silhouette: Cardiomegaly. Lungs: No consolidation, pneumothorax, or pleural effusion. Bones: No acute osseous abnormality. Upper abdomen: Prior cholecystectomy. IMPRESSION: 1. No acute pulmonary process identified. Cardiomegaly.
[2020-02-11 03:47] LABS: ALBUMIN 3.5 g/dL (3.5-5.0); ALKALINE PHOSPHATASE 96 U/L (38-126); ASPARTATE AMINO TRANSFERASE 30 U/L (14-36); BILIRUBIN,TOTAL 0.2 mg/dL (0.2-1.3); BLOOD UREA NITROGEN 16 mg/dL (7-20); CALCIUM 8.6 mg/dL (8.4-10.2); CARBON DIOXIDE 30 mmol/L (22-30); CHLORIDE 108 mmol/L (98-107); CREATINE KINASE 72 U/L (30-135); GLUCOSE 94 mg/dL (75-110); POTASSIUM 4.1 mmol/L (3.6-5.0); TOTAL PROTEIN 6.3 g/dL (6.3-8.2)
[2020-02-11 03:53] LABS: ANION GAP 2 (5-19)
[2020-02-11 03:59] LABS: TROPONIN I < 0.012 ng/mL
--- NOTE | 2020-02-11 04:05 | ER Document Report ---
ED General - General Chief Complaint: Chest Pain Stated Complaint: LEFT SHOULDER PAIN,FOOT PAIN Time Seen by Provider: 02/11/20 03:56 Primary Care Provider: ZOHAIB OBRIEN MD [ACTIVE STAFF] - Follow up tomorrow Notes: Patient is a 54-year-old female that comes emergency department for chief complaint of left-sided chest pain and left shoulder and arm pain. She states she started noticing the pain about 1:30 AM tonight after she got up and went to the bathroom. She states that chest pain resolved but she is still feeling pain in her shoulder and this is worsened by moving the arm. She denies fall or specific injury although the arm has been hurting her intermittently recently. She denies any associated symptoms including lightheadedness, nausea, vomiting, abdominal pain, back pain, shortness of breath, difficulty breathing, cough, fever/chills, or any sick symptoms. Past medical history includes bipolar disorder, hyperlipidemia, obesity. She denies smoking, alcohol, recreational drugs. Patient was instructed by EMS to take for 81 mg aspirins and she did so just prior to arrival. TRAVEL OUTSIDE OF THE [place] IN LAST 30 DAYS: No - Related Data Allergies/Adverse Reactions: ciprofloxacin [From Cipro] Allergy (Verified 12/13/19 11:48) Past Medical History - General Information source: Patient - Social History Smoking Status: Never Smoker Chew tobacco use (# tins/day): No Frequency of alcohol use: None Drug Abuse: None Lives with: Family Family History: Reviewed & Not Pertinent, CAD, Hypertension, Other - Schizophrenia and bipolar disorder Patient has suicidal ideation: No Patient has homicidal ideation: No - Past Medical History Cardiac Medical History: Denies: Hx Congestive Heart Failure, Hx Hypertension Pulmonary Medical History: Reports: Hx Bronchitis - w/ RAD, Hx Pneumonia Denies: Hx Asthma, Hx Tuberculosis Neurological Medical History: Denies: Hx Seizures Endocrine Medical History: Reports: Hx Diabetes Mellitus Type 2 - The patient actually reported hypoglycemia to me and denied that she had DM Renal/ Medical History: Denies: Hx Peritoneal Dialysis Musculoskeletal Medical History: Reports Hx Arthritis - bilateral knees Psychiatric Medical History: Reports: Hx Bipolar Disorder, Hx Depression Denies: Hx Schizophrenia Past Surgical History: Reports: Hx Abdominal Surgery - gastric bypass, Hx Cholecystectomy, Hx Gastric Bypass Surgery - 1994, Hx Tonsillectomy, Hx Tubal Ligation. Denies: Hx Hysterectomy - Immunizations Immunizations up to date: Yes Hx Diphtheria, Pertussis, Tetanus Vaccination: Yes Review of Systems - Review of Systems Constitutional: No symptoms reported EENT: No symptoms reported Cardiovascular: See HPI Respiratory: No symptoms reported Gastrointestinal: No symptoms reported Genitourinary: No symptoms reported Female Genitourinary: No symptoms reported Musculoskeletal: See HPI Skin: No symptoms reported Hematologic/Lymphatic: No symptoms reported Neurological/Psychological: No symptoms reported Physical Exam - Vital signs Vitals: Temp Pulse Resp BP Pulse Ox 97.8 F 73 17 126/77 H 95 02/11/20 02:51 02/11/20 02:51 02/11/20 02:51 02/11/20 02:51 02/11/20 02:51 - Notes Notes: GENERAL: Alert, interacts well. No acute distress. Smiling, talkative, well- appearing HEAD: Normocephalic, atraumatic. EYES: Pupils equal, round, and reactive to light. Extraocular movements intact. ENT: Oral mucosa moist, tongue midline. Oropharynx unremarkable. Airway patent. NECK: Full range of motion. Supple. Trachea midline. No lymphadenopathy. LUNGS: Clear to auscultation bilaterally, no wheezes, rales, or rhonchi. No respiratory distress. Tenderness over the left lateral pectoral muscle, very tender at the AC joint, pain with trying to perform range of motion of the left arm moving it over the head, difficulty with abduction of the arm. Normal telegraph inspector, normal distal neurovascular exam, normal chest otherwise. HEART: Regular rate and rhythm. No murmur ABDOMEN: Soft, non-tender. Non-distended. Bowel sounds present in all 4 quadrants. GENITOURINARY: Deferred EXTREMITIES: Moves all 4 extremities spontaneously. See lungs note. No edema, normal radial and dorsalis pedis pulses bilaterally. No cyanosis. BACK: no cervical, thoracic, lumbar midline tenderness. No saddle anesthesia, normal distal neurovascular exam. Moves all extremities in full range of motion. NEUROLOGICAL: Alert and oriented x3. Normal speech. Cranial nerves II through XII grossly intact. Strength 5/5 in all extremities. PSYCH: Normal affect, normal mood. SKIN: Warm, dry, normal turgor. No rashes or lesions noted. Course - Re-evaluation Re-evalutation: Patient is asking if she can take her Risperdal, Lexapro, and propanolol because they are due. She was told she could do so. CBC shows mild leukopenia, not significantly changed from prior, chemistry unremarkable, initial troponin negative. Chest x-ray unremarkable with some cardiomegaly. EKG unremarkable. On exam patient has very musculoskeletal symptoms with pain over the left lateral upper shoulder, pain very specifically and with noted tenderness in the AC joint, patient with limited ability to raise her left arm over her head. Normal telegraph inspector, no normal distal neurovascular exam, unremarkable physical exam otherwise. Patient talkative and alert, well-appearing. Appears to be musculoskeletal source. Second troponin negative. Very low suspicion that this is cardiac. I did obtain dedicated shoulder images and this does indicate AC joint separation. Discussed with patient at length. She states this is been really bothering her but she does not recall a specific injury. Patient was placed in immobilization, discussed recommendations in regards to this, treatment, orthopedic follow-up and management, and return precautions. Patient states understanding and agreement with plan. - Vital Signs Vital signs: Temp Pulse Resp BP Pulse Ox 97.8 F 73 11 L 106/78 93 02/11/20 03:49 02/11/20 02:51 02/11/20 07:01 02/11/20 07:01 02/11/20 07:01 - Laboratory Result Diagrams: 02/11/20 03:18 02/11/20 03:18 Laboratory results interpreted by me: 02/11/20 02/11/20 03:18 03:18 WBC 3.4 L Hgb 10.9 L Hct 33.3 L MCH 26.8 L RDW 16.1 H [place] % (Auto) 13.9 H Eos % (Auto) 9.0 H Chloride 108 H Anion Gap 2 L - EKG Interpretation by Me Additional EKG results interpreted by me: EKG shows sinus rhythm at a rate of 71, QTC 435, normal axis, no T wave inversions or ST segment changes in consecutive leads. Machine reads as normal. Procedures - Immobilization left shoulder Pre-Proc Neuro Vasc Exam: Normal Immobilizer type: Sling Performed by: RN Post-Proc Neuro Vasc Exam: Normal Alignment checked and good: Yes Discharge - Discharge Clinical Impression: Chest wall pain Left shoulder pain Qualifiers: Chronicity: acute Qualified Code(s): M25.512 - Pain in left shoulder AC separation Qualifiers: Encounter type: initial encounter Laterality: left Qualified Code(s): S43.102A - Unspecified dislocation of left acromioclavicular joint, initial encounter Condition: Stable Disposition: HOME, SELF-CARE Additional Instructions: Your work-up shows separation at the AC shoulder joint. This is most likely from a recent injury. I recommend that you wear the sling, call the orthopedic referral for close follow-up and additional management. Take the anti- inflammatory muscle x-ray as prescribed, ice the shoulder 3-4 times a day for 10 to 15 minutes. Return if you worsen including severe worsening pain, developing numbness, fever, difficulty breathing, or any other concerning symptoms. Prescriptions: Naproxen [Naprosyn 375 Mg Tablet] 375 mg PO BID #14 tablet Methocarbamol [Robaxin-750] 750 mg PO QID PRN #20 tablet PRN Reason: Referrals: ZOHAIB OBRIEN MD [ACTIVE STAFF] - Follow up tomorrow
--- NOTE | 2020-02-11 04:58 | RADIOLOGY REPORT (SQ) ---
EXAM DESCRIPTION: XR SHOULDER 2 OR MORE VIEWS COMPLETED DATE/TME: 02/11/2020 04:15 CLINICAL HISTORY: 54 years, Female, sharp pain at AC joint COMPARISON: 08/31/2017 left shoulder NUMBER OF VIEWS: 3 TECHNIQUE: 3 views left shoulder LIMITATIONS: None. FINDINGS: Negative for fracture or dislocation. Mild degenerative changes of the acromial clavicular joint. There is widening of the acromial clavicular joint consistent with AC separation, measuring 9.5 mm.. IMPRESSION: Widening of the AC joint consistent with AC separation. No acute fracture. Degenerative changes. copyright 2010 [employer]- All Rights Reserved
[2020-02-11] MEDS ORDERED: OXYCODONE HCL IR 5 MG TABLET PO ONE (05:35)
[2020-02-11] MEDS ORDERED: HYDROCODONE/ACETAMINOPHEN 5-325 MG (6 TAB/ER DISP) PO PRN (07:20)
[2020-02-11 08:18] VITALS: BP 118/70
--- NOTE | 2020-02-11 11:58 | EKG REPORT ---
SEVERITY:- NORMAL ECG - SINUS RHYTHM : Confirmed by: Matheus Tyson MD 11-Feb-2020 11:57:44
== END 2020-02-11 08:19 | disposition home or self-care (01) ==
LOC: ER 02:44
DX: S43.102A Unspecified dislocation of left acromioclavicular joint, initial encounter (principal); M25.512 Pain in left shoulder; R07.89 Other chest pain; X58.XXXA Exposure to other specified factors, initial encounter; Z88.3 Allergy status to other anti-infective agents; Z98.84 Bariatric surgery status; Z90.49 Acquired absence of other specified parts of digestive tract; Z98.51 Tubal ligation status
CPT/HCPCS: 36415; 71046; 80053; 82550; 82553; 84484; 85025; 93005; 93010; 99284

== ENCOUNTER 2020-03-02 20:55 | Emergency (ER) | payer BC ==
[2020-03-02] MEDS ORDERED: ACETAMINOPHEN 325 MG TABLET PO ONE (22:04)
--- NOTE | 2020-03-02 22:05 | ER Document Report ---
ED Headache - General Chief Complaint: Headache >24 hrs old Stated Complaint: HEADACHE Time Seen by Provider: 03/02/20 22:00 Primary Care Provider: YEE RAPHAEL MD [Primary Care Provider] - Follow up as needed Mode of Arrival: Ambulatory Information source: Patient Notes: 54-year-old woman presents to the emergency department with a complaint of headache, shooting pain into the left forehead above the left eye area. She denies focal weakness, speech change, visual change. She has had a history of TIA in the past and is concerned that the severe headache is a sign of pending neurologic event. Symptoms began earlier this afternoon and has continued. TRAVEL OUTSIDE OF THE [place] IN LAST 30 DAYS: No - Related Data Allergies/Adverse Reactions: ciprofloxacin [From Cipro] Allergy (Verified 12/13/19 11:48) Past Medical History - Social History Smoking Status: Unknown if Ever Smoked Frequency of alcohol use: None Drug Abuse: None Family History: Reviewed & Not Pertinent, CAD, Hypertension, Other - Schizophrenia and bipolar disorder Patient has homicidal ideation: No - Past Medical History Cardiac Medical History: Denies: Hx Congestive Heart Failure, Hx Hypertension Pulmonary Medical History: Reports: Hx Bronchitis - w/ RAD, Hx Pneumonia Denies: Hx Asthma, Hx Tuberculosis Neurological Medical History: Denies: Hx Seizures Endocrine Medical History: Reports: Hx Diabetes Mellitus Type 2 - The patient actually reported hypoglycemia to me and denied that she had DM Renal/ Medical History: Denies: Hx Peritoneal Dialysis Musculoskeletal Medical History: Reports Hx Arthritis - bilateral knees Psychiatric Medical History: Reports: Hx Bipolar Disorder, Hx Depression Denies: Hx Schizophrenia Past Surgical History: Reports: Hx Abdominal Surgery - gastric bypass, Hx Cholecystectomy, Hx Gastric Bypass Surgery - 1994, Hx Tonsillectomy, Hx Tubal Ligation. Denies: Hx Hysterectomy - Immunizations Immunizations up to date: Yes Hx Diphtheria, Pertussis, Tetanus Vaccination: Yes Review of Systems - Review of Systems Notes: Constitutional: Negative for fever. HENT: Negative for sore throat. Eyes: Negative for visual changes. Cardiovascular: Negative for chest pain. Respiratory: Negative for shortness of breath. Gastrointestinal: Negative for abdominal pain, vomiting or diarrhea. Genitourinary: Negative for dysuria. Musculoskeletal: Negative for back pain. Skin: Negative for rash. Neurological: + Headaches, no weakness or numbness. 10 point ROS negative except as marked above and in HPI. Physical Exam - Vital signs Vitals: Temp 97.8 F 03/02/20 21:35 - Notes Notes: PHYSICAL EXAMINATION: Physical Exam: General: Morbidly obese 54-year-old woman in no acute distress HEENT: NC/AT, pupils equal round and reactive to light, MM moist,nares clear, oropharynx clear, airway patent Neck: supple, no adenopathy, no masses. Good range of motion Lungs: clear, no wheezing, no rales no rhonchi CVS: Regular rate and rhythm no murmur gallop or rub Abdomen: Soft, active, nontender, no masses, no hepatosplenomegaly Ext: No edema, clubbing or cyanosis. Neuro: Alert and responsive, moving all 4 extremities on command, cranial nerves intact, no focal findings Skin: Intact no open lesions, no rash PSYCH: Normal mood, normal affect. Course - Re-evaluation Re-evalutation: 03/03/20 00:55 Patient's headache resolved with acetaminophen, CT scan negative, there are no symptoms suggestive of a TIA. I explained this to the patient and explained to her that she may continue Tylenol as needed for headache control, it may be reasonable to follow-up with your primary care doctor if you continue to have recurrent episodes. Patient acknowledges understanding of this plan and is ready to go home. - Vital Signs Vital signs: Temp Pulse Resp BP Pulse Ox 97.8 F 72 96/54 L 95 03/02/20 21:49 03/02/20 21:49 03/02/20 21:49 03/02/20 21:49 - Laboratory Result Diagrams: 03/02/20 21:43 03/02/20 21:43 Laboratory results interpreted by me: 03/02/20 03/02/20 03/02/20 21:43 21:43 21:43 Hgb 10.3 L Hct 31.6 L MCH 26.9 L RDW 16.9 H Eos % (Auto) 8.2 H Chloride 108 H Calcium 8.2 L Total Protein 6.0 L Albumin 3.4 L Leukocyte Esterase Rfl TRACE H - Diagnostic Test Radiology reviewed: Image reviewed, Reports reviewed - CT scan head: No acute intracranial pathology. Discharge - Discharge Clinical Impression: Morbid obesity with BMI of 45.0-49.9, adult Headache Qualifiers: Headache type: unspecified Headache chronicity pattern: unspecified pattern Intractability: not intractable Qualified Code(s): R51 - Headache Condition: Good Disposition: HOME, SELF-CARE Instructions: Headache ([facility]) Additional Instructions: You were treated in the emergency department for a headache, CT scan was negative, we suggest that you continue Tylenol as needed for headache control and follow-up with your primary care doctor as needed. If you have worsening or new symptoms you may return to the emergency department for further evaluation and treatment. HOME CARE INSTRUCTIONS & INFORMATION: Thank you for choosing us for your medical needs. We hope you're satisfied with the care you received. After you leave, you must properly care for your problem and, at the same time, observe its progress. Any condition can change. Some illnesses can change rapidly over hours or days. If your condition worsens, return to the Emergency Department or see your physician promptly. ABOUT YOUR X-RAYS AND EKG'S: If you had an EKG or X-rays taken, they have been read by the Emergency Physician. The X-rays and EKG's will also be read by a Radiologist or Field Investigator within 24 hours. If discrepancies are noted, you will be notified by telephone. Please be certain the ED has a correct telephone number & address where you can be reached. Also, realize that some fractures or abnormalities do not show up on initial X-rays. If your symptoms continue, see your physician. ABOUT YOUR LABORATORY TEST: If you had laboratory tests, the results have been reviewed by the Emergency Physician. Some test results (for example cultures) may not be available for several days. You will be contacted if any test result shows you need additional treatment. Please be certain the ED has a correct telephone number and address where you can be reached. ABOUT YOUR MEDICATIONS: You will receive instructions on how to take your medicine on the prescription label you receive. Additional information may be provided by the Pharmacy. If you have questions afterwards, call the ED for clarification or further instructions. Some prescribed medications may cause drowsiness. Do not perform tasks such as driving a car or operating machinery without consulting your Pharmacist. If you feel you need a refill of pain medication, your condition will need re-evaluation. Please do not call for a refill of any medication. ABOUT YOUR SIGNATURE: Signature of this document acknowledges to followin. Understanding that you received emergency treatment and that you may be released before al medical problems are known or treated. Please be certain the ED has a correct phone number & address where you can be reached. 2. Acknowledgement that you will arrange for follow-up care as recommended. 3. Authorization for the Emergency Physician to provide information to your follow-up Physician in order to maximize your care. AT ANY TIME, IF YOUR SYMPTOMS CHANGE SIGNIFICANTLY OR WORSEN OR YOU DEVELOP NEW SYMPTOMS, RETURN TO THE EMERGENCY DEPARTMENT IMMEDIATELY FOR RE-EVALUATION. OUR GOAL IS TO PROVIDE EXCELLENT MEDICAL CARE! WE HOPE THAT WE HAVE MET YOUR EXPECTATIONS DURING YOUR EMERGENCY DEPARTMENT VISIT AND THAT YOU FEEL YOU HAVE RECEIVED EXCELLENT CARE! Referrals: YEE RAPHAEL MD [Primary Care Provider] - Follow up as needed
[2020-03-02 22:16] LABS: ABSOLUTE EOSINOPHILS # (AUTO) 0.4 10^3/uL (0.0-0.6); ABSOLUTE LYMPHOCYTES (AUTO) 0.7 10^3/uL (0.5-4.7); ABSOLUTE MONOCYTES (AUTO) 0.5 10^3/uL (0.1-1.4); ABSOLUTE NEUT (AUTO) 3.1 10^3/uL (1.7-8.2); EOSINOPHILS % (AUTO) 8.2 % (0-6); HEMATOCRIT 31.6 % (36.0-47.0); HEMOGLOBIN 10.3 g/dL (12.0-15.5); LYMPHOCYTES % (AUTO) 14.3 % (13-45); MEAN CORPUSCULAR HEMOGLOBIN 26.9 pg (27.0-33.4); MEAN CORPUSCULAR HGB CONC 32.6 g/dL (32.0-36.0); MEAN CORPUSCULAR VOLUME 82 fl (80-97); MONOCYTES % (AUTO) 10.2 % (3-13); PLATELET COUNT 194 10^3/uL (150-450); RED BLOOD COUNT 3.84 10^6/uL (3.72-5.28); RED CELL DISTRIBUTION WIDTH 16.9 % (11.5-14.0); SEGMENTED NEUTROPHILS % (AUTO) 66.3 % (42-78); TOTAL CELLS COUNTED % (AUTO) 100 %; WHITE BLOOD COUNT 4.7 10^3/uL (4.0-10.5)
[2020-03-02 22:23] LABS: ALBUMIN 3.4 g/dL (3.5-5.0); ALKALINE PHOSPHATASE 82 U/L (38-126); ANION GAP 6 (5-19); ASPARTATE AMINO TRANSFERASE 32 U/L (14-36); BILIRUBIN,DIRECT 0.1 mg/dL (0.0-0.4); BILIRUBIN,TOTAL 0.2 mg/dL (0.2-1.3); BLOOD UREA NITROGEN 18 mg/dL (7-20); CALCIUM 8.2 mg/dL (8.4-10.2); CARBON DIOXIDE 26 mmol/L (22-30); CHLORIDE 108 mmol/L (98-107); GLUCOSE 96 mg/dL (75-110)
[2020-03-02 22:25] LABS: APPEARANCE,URINE SLIGHTLY-CLOUDY; BILIRUBIN,URINE NEGATIVE (NEGATIVE); COLOR,URINE YELLOW; GLUCOSE, URINE NEGATIVE (NEGATIVE); KETONES,URINE NEGATIVE (NEGATIVE); PROTEIN,URINE NEGATIVE (NEGATIVE); UROBILINOGEN,URINE NEGATIVE mg/dL (<2.0)
--- NOTE | 2020-03-02 23:00 | RADIOLOGY REPORT (SQ) ---
EXAM DESCRIPTION: Noncontrast CT head CLINICAL HISTORY: 54 years Female Headache TECHNIQUE: Noncontrast CT head. All CT scans at this facility use dose modulation, iterative reconstruction, and/or weight based dosing when appropriate to reduce radiation dose to as low as reasonably achievable. COMPARISON: None. FINDINGS: [place] matter, white matter, ventricles, and cisterns are within normal limits. No acute hemorrhage or mass effect. Visualized portions of paranasal sinuses and mastoids are clear. Visualized portions of the calvarium are within normal limits. IMPRESSION: 1. No acute intracranial findings. If there is continued concern for acute intracranial process, such as stroke, MRI brain should be considered as a more sensitive evaluation.
[2020-03-03 01:20] VITALS: BP 105/64
== END 2020-03-03 01:20 | disposition home or self-care (01) ==
LOC: ER 20:55
DX: R51 Headache (principal); E66.01 Morbid (severe) obesity due to excess calories; Z68.42 Body mass index [BMI] 45.0-49.9, adult; Z98.84 Bariatric surgery status; Z86.73 Personal history of transient ischemic attack (TIA), and cerebral infarction without residual deficits; Z88.1 Allergy status to other antibiotic agents
CPT/HCPCS: 36415; 70450; 80053; 81001; 85025; 99284

== ENCOUNTER → 2020-03-12 | Outpatient (CLI) | payer BC, OTHER ==
--- NOTE | 2020-03-13 11:34 | WOMENS IMAGING REPORT ---
EXAM DESCRIPTION: 3D SCREENING MAMMO BILAT IMAGES COMPLETED DATE/TIME: 03/12/2020 12:11 pm REASON FOR STUDY: ROUTINE BILATERAL SCREENING;Z12.31 Z12.31 ENCNTR SCREEN MAMMOGRAM FOR MALIGNANT N EOPLASM OF AHMET COMPARISON: Multiple since 2013 EXAM PARAMETERS: Views: Standard craniocaudal and mediolateral oblique views of each breast recorded using digital acquisition and breast tomosynthesis. Read with the assistance of CAD. [facility] [employer] Guide Version 9.2 LIMITATIONS: None. FINDINGS: No suspicious masses, suspicious calcifications or architectural distortion. No areas of c oncern. IMPRESSION: NEGATIVE MAMMOGRAM. BIRADS 1. BREAST DENSITY: a. The breasts are almost entirely fatty. BIRAD: ASSESSMENT: 1 NEGATIVE RECOMMENDATION: ROUTINE SCREENING COMMENT: The patient has been notified of the results by letter per SA requirements. Additional no tification policies are in place for contacting patient with suspicious or incomplete findings. Quality ID #225: The [employer] recommends an annual screening mammogram for women aged 40 years or over. This facility utilizes a reminder system to ensure that all patients receive reminder letters, and/or direct phone calls for appointments. This includes reminders for routine scr eening mammograms, diagnostic mammograms, or other Breast Imaging Interventions when appropriate. Th is patient will be placed in the appropriate reminder system. TECHNICAL DOCUMENTATION: FINDING NUMBER: (1) ASSESSMENT: (1) JOB ID: [id number] 2010 [employer]- All Rights Reserved Reading location - IP/workstation name: [id number]
== END ==
LOC: WI 11:43
PROVIDERS: ATTEND Obstetrics & Gynecology Gynecology
DX: Z12.31 Encounter for screening mammogram for malignant neoplasm of breast (principal)
CPT/HCPCS: 77063; 77067

== ENCOUNTER 2020-03-30 19:54 | Emergency (ER) | payer BC ==
[2020-03-30] MEDS ORDERED: NORMAL SALINE 1000 ML 1,000 ML IV PRN (20:28)
--- NOTE | 2020-03-30 20:28 | ER Document Report ---
ED Medical Screen (RME) - General Chief Complaint: Urinary Problem Stated Complaint: POSSIBLE UTI Time Seen by Provider: 03/30/20 20:27 Primary Care Provider: YEE RAPHAEL MD [Primary Care Provider] - Follow up as needed Information source: Patient Notes: This 54-year-old female presented to the emergency room today stating that she is having frequency and pain to bilateral flank area she has had a fever with some nausea no vomiting I greeted and performed a rapid initial assessment of this patient. Comprehensive ED assessment and evaluation of the patient, analysis of test results and completion of the medical decision making process will be conducted by additional ED providers. TRAVEL OUTSIDE OF THE [place] IN LAST 30 DAYS: No - Related Data Allergies/Adverse Reactions: ciprofloxacin [From Cipro] Allergy (Verified 12/13/19 11:48) Past Medical History - Past Medical History Cardiac Medical History: Denies: Hx Congestive Heart Failure, Hx Hypertension Pulmonary Medical History: Reports: Hx Bronchitis - w/ RAD, Hx Pneumonia Denies: Hx Asthma, Hx Tuberculosis Neurological Medical History: Denies: Hx Seizures Endocrine Medical History: Reports: Hx Diabetes Mellitus Type 2 - The patient actually reported hypoglycemia to me and denied that she had DM Renal/ Medical History: Denies: Hx Peritoneal Dialysis Musculoskeltal Medical History: Reports Hx Arthritis - bilateral knees Psychiatric Medical History: Reports: Hx Bipolar Disorder, Hx Depression Denies: Hx Schizophrenia Past Surgical History: Reports: Hx Abdominal Surgery - gastric bypass, Hx Cholecystectomy, Hx Gastric Bypass Surgery - 1994, Hx Tonsillectomy, Hx Tubal Ligation. Denies: Hx Hysterectomy - Immunizations Immunizations up to date: Yes Hx Diphtheria, Pertussis, Tetanus Vaccination: Yes Physical Exam - Vital signs Vitals: Temp Pulse Resp BP Pulse Ox 97.9 F 72 20 101/55 L 96 03/30/20 20:08 03/30/20 20:08 03/30/20 20:08 03/30/20 20:08 03/30/20 20:08 Course - Vital Signs Vital signs: Temp Pulse Resp BP Pulse Ox 97.9 F 72 20 101/55 L 96 03/30/20 20:08 03/30/20 20:08 03/30/20 20:08 03/30/20 20:08 03/30/20 20:08 Doctor's Discharge - Discharge Referrals: YEE RAPHAEL MD [Primary Care Provider] - Follow up as needed
[2020-03-30 20:49] LABS: APPEARANCE,URINE CLEAR; BILIRUBIN,URINE NEGATIVE (NEGATIVE); COLOR,URINE YELLOW; GLUCOSE, URINE NEGATIVE (NEGATIVE); KETONES,URINE NEGATIVE (NEGATIVE); LEUKOCYTE ESTERASE,URINE NEGATIVE (NEGATIVE); NITRITE,URINE NEGATIVE (NEGATIVE); PROTEIN,URINE NEGATIVE (NEGATIVE); URINE SPECIFIC GRAVITY 1.015; UROBILINOGEN,URINE NEGATIVE mg/dL (<2.0)
[2020-03-30 20:51] LABS: ABSOLUTE BASOPHILS # (AUTO) 0.1 10^3/uL (0.0-0.2); ABSOLUTE EOSINOPHILS # (AUTO) 0.3 10^3/uL (0.0-0.6); ABSOLUTE LYMPHOCYTES (AUTO) 0.7 10^3/uL (0.5-4.7); ABSOLUTE MONOCYTES (AUTO) 0.5 10^3/uL (0.1-1.4); ABSOLUTE NEUT (AUTO) 2.2 10^3/uL (1.7-8.2); BASOPHILS % (AUTO) 1.9 % (0-2); EOSINOPHILS % (AUTO) 8.6 % (0-6); HEMATOCRIT 32.3 % (36.0-47.0); HEMOGLOBIN 10.5 g/dL (12.0-15.5); LYMPHOCYTES % (AUTO) 19.1 % (13-45); MEAN CORPUSCULAR HEMOGLOBIN 26.4 pg (27.0-33.4); MEAN CORPUSCULAR HGB CONC 32.6 g/dL (32.0-36.0); MEAN CORPUSCULAR VOLUME 81 fl (80-97); MONOCYTES % (AUTO) 13.9 % (3-13); PLATELET COUNT 241 10^3/uL (150-450); RED BLOOD COUNT 3.99 10^6/uL (3.72-5.28); RED CELL DISTRIBUTION WIDTH 17.4 % (11.5-14.0); SEGMENTED NEUTROPHILS % (AUTO) 56.5 % (42-78); TOTAL CELLS COUNTED % (AUTO) 100 %; WHITE BLOOD COUNT 3.9 10^3/uL (4.0-10.5)
[2020-03-30 21:08] LABS: ALBUMIN 3.6 g/dL (3.5-5.0); ALKALINE PHOSPHATASE 98 U/L (38-126); ANION GAP 5 (5-19); ASPARTATE AMINO TRANSFERASE 37 U/L (14-36); BILIRUBIN,TOTAL 0.2 mg/dL (0.2-1.3); BLOOD UREA NITROGEN 18 mg/dL (7-20); CALCIUM 8.7 mg/dL (8.4-10.2); CARBON DIOXIDE 28 mmol/L (22-30); CHLORIDE 107 mmol/L (98-107); GLUCOSE 87 mg/dL (75-110); POTASSIUM 4.3 mmol/L (3.6-5.0); TOTAL PROTEIN 6.4 g/dL (6.3-8.2)
--- NOTE | 2020-03-31 01:06 | ER Document Report ---
ED General - General Chief Complaint: Urinary Problem Stated Complaint: POSSIBLE UTI Time Seen by Provider: 03/30/20 20:27 Primary Care Provider: YEE RAPHAEL MD [Primary Care Provider] - Follow up as needed Notes: 54-year-old female with pmhx of bipolar depression presenting with 2 days of bilaterally flank pain. Pain was tolerable and intermittent until today when it became constant. Pain radiates towards front of abdomen and is like a band across her mid back. Pain is greater on the right than the left. States that when she gets a UTI, she does not present with dysuria, but does present with back pain. Denies dysuria and hematuria. Currently denies any nausea or vomiting. Had a fever at home this evening at 100.3 and she took ibuprofen at 8pm. No vaginal bleeding or discharge. Patient denies any acute trauma. Has surgical hx of cholesectomy, gastric bypass and tubal ligation. TRAVEL OUTSIDE OF THE [place] IN LAST 30 DAYS: No - Related Data Allergies/Adverse Reactions: ciprofloxacin [From Cipro] Allergy (Verified 12/13/19 11:48) Past Medical History - General Information source: Patient - Social History Smoking Status: Never Smoker Family History: Reviewed & Not Pertinent, CAD, Hypertension, Other - Schizophrenia and bipolar disorder Patient has homicidal ideation: No - Past Medical History Cardiac Medical History: Denies: Hx Congestive Heart Failure, Hx Hypertension Pulmonary Medical History: Reports: Hx Bronchitis - w/ RAD, Hx Pneumonia Denies: Hx Asthma, Hx Tuberculosis Neurological Medical History: Denies: Hx Seizures Endocrine Medical History: Reports: Hx Diabetes Mellitus Type 2 - The patient actually reported hypoglycemia to me and denied that she had DM Renal/ Medical History: Denies: Hx Peritoneal Dialysis Musculoskeletal Medical History: Reports Hx Arthritis - bilateral knees Psychiatric Medical History: Reports: Hx Bipolar Disorder, Hx Depression Denies: Hx Schizophrenia Past Surgical History: Reports: Hx Abdominal Surgery - gastric bypass, Hx Cholecystectomy, Hx Gastric Bypass Surgery - 1994, Hx Tonsillectomy, Hx Tubal Ligation. Denies: Hx Hysterectomy - Immunizations Immunizations up to date: Yes Hx Diphtheria, Pertussis, Tetanus Vaccination: Yes Review of Systems - Review of Systems Constitutional: See HPI EENT: No symptoms reported Cardiovascular: No symptoms reported Respiratory: No symptoms reported Gastrointestinal: See HPI Genitourinary: See HPI Female Genitourinary: No symptoms reported Musculoskeletal: Back pain Physical Exam - Vital signs Vitals: Temp 97.9 F 03/30/20 19:54 Interpretation: No: Hypertensive, Bradycardic, Tachycardic, Hypoxic - Notes Notes: Adult General: GENERAL: Alert, interacts well. No acute distress HEAD: Normocephalic, atraumatic EYES: Pupils equal, round and reactive to light. Extraocular movements intact. ENT: Oral mucosa moist, tongue midline. Oropharynx unremarkable. Airway patent. Nares patent. NECK: Full range of motion. Supple. Trachea midline. No lymphadenopathy. LUNGS: Clear to auscultation bilaterally, no wheezes, rales, or rhonchi. No respiratory distress. Nontender chest wall. HEART: Regular rate and rhythm. No murmurs, rubs or gallops. ABDOMEN: Soft, nontender. Nondistended. Bowel sounds present in all 4 quadrants. GENITOURINARY: Deferred EXTREMITIES: Moves all 4 extremities spontaneously. No edema, normal radial and dorsal pedis pulses bilaterally. No cyanosis. BACK: CVA tenderness right side. No cervical, thoracic, lumbar midline tenderness. No saddle anesthesia, normal distal neurovascular exam. NEUROLOGICAL: Alert and oriented x3. Normal speech. Strength 5/ 5 in all ext remities. PSYCH: Normal affect, normal mood. SKIN: Warm, dry, normal turgor. No rashes or lesions noted. Course - Re-evaluation Re-evalutation: Patient is resting peacefully in her bed. Discussed with patient CT scan shows no acute findings- No hydronephrosis, no kidney stones. Her urinalysis shows no signs of infection. Pain is likely musculoskeletal in nature. Recommend follow up with primary care as soon as possible. Discussed with patient that she can take Tylenol for her pain. Return precautions include worsening symptoms or development of new symptoms. - Vital Signs Vital signs: Temp Pulse Resp BP Pulse Ox 97.7 F 65 20 99/63 L 94 03/30/20 23:16 03/30/20 23:16 03/30/20 23:16 03/30/20 23:16 03/30/20 23:16 - Laboratory Result Diagrams: 03/30/20 20:41 03/30/20 20:41 Laboratory results interpreted by me: 03/30/20 03/30/20 20:41 20:41 WBC 3.9 L Hgb 10.5 L Hct 32.3 L MCH 26.4 L RDW 17.4 H [place] % (Auto) 13.9 H Eos % (Auto) 8.6 H Est GFR (MDRD) Non-Af 58 L AST 37 H Discharge - Discharge Clinical Impression: Back pain Qualifiers: Back pain location: thoracic back pain Chronicity: acute Back pain laterality: bilateral Qualified Code(s): M54.6 - Pain in thoracic spine Condition: Stable Disposition: HOME, SELF-CARE Instructions: Acetaminophen Additional Instructions: Please follow-up with your primary care provider soon as possible. Urinalysis showed no signs of infection and your CT scan showed no abnormal findings. You may use Tylenol for pain relief. You may return to the emergency department if you develop new or worsening symptoms. Referrals: YEE RAPHAEL MD [Primary Care Provider] - Follow up as needed
--- NOTE | 2020-03-31 02:33 | RADIOLOGY REPORT (SQ) ---
EXAM DESCRIPTION: CT ABDOMEN PELVIS WITHOUT IV CONTRAST COMPLETED DATE/TME: 03/31/2020 01:10 CLINICAL HISTORY: 54 years, Female, CVA tenderness COMPARISON: None. TECHNIQUE: Axial CT images of the abdomen and pelvis were obtained without contrast. Sagittal and coronal reformats were performed. [facility] 1562 Images stored on PACS. All CT scanners at this facility use dose modulation, iterative reconstruction, and/or weight based dosing when appropriate to reduce radiation dose to as low as reasonably achievable (ALARA). [facility]: Dose Right [facility]: CareDose [facility]: Dose Right [facility]: Teradose 4D [facility]: Max Rumpus LIMITATIONS: None. FINDINGS: There are nodules within the right lower lobe measuring up to 3 mm in size. There are nodules within the right middle lobe which measure up to 6 mm in size. There is a 4 mm nodule within the lingula. There are nodules within the left lower lobe measuring up to 7 mm. The liver, pancreas, spleen, and adrenal glands appear unremarkable. Cholecystectomy. Both kidneys appear unremarkable with no evidence of urolithiasis or hydronephrosis bilaterally. There is no intraperitoneal free air or fluid. There is no lymphadenopathy. The abdominal aorta is normal in caliber. There is a fat-containing right paracentral ventral hernia. There are postsurgical changes to the stomach. The small bowel appears unremarkable. The appendix is not uniquely identified, however there are no pericecal inflammatory changes. The colon appears unremarkable. An IUD is in place. Tubal ligation clips are noted. The urinary bladder appears unremarkable. There are no lytic or blastic bone lesions. IMPRESSION: No acute findings. No evidence of urolithiasis or hydronephrosis. Bilateral pulmonary nodules measuring up to 7 mm in size. Recommend repeat CT at 6-12 months; no further follow up if unchanged. TECHNICAL DOCUMENTATION: Quality ID # 436: Final reports with documentation of one or more dose reduction techniques (e.g., Automated exposure control, adjustment of the mA and/or kV according to patient size, use of iterative reconstruction technique) copyright 2011 [employer]- All Rights Reserved
--- NOTE | 2020-03-31 02:53 | ER Document Report ---
ED General - General Chief Complaint: Urinary Problem Stated Complaint: POSSIBLE UTI Time Seen by Provider: 03/30/20 20:27 Primary Care Provider: YEE RAPHAEL MD [Primary Care Provider] - Follow up as needed Notes: 54-year-old female presenting today with bilateral flank pain starting 2 days ago. TRAVEL OUTSIDE OF THE [place] IN LAST 30 DAYS: No - Related Data Allergies/Adverse Reactions: ciprofloxacin [From Cipro] Allergy (Verified 12/13/19 11:48) Past Medical History - General Information source: Patient - Social History Smoking Status: Never Smoker Family History: Reviewed & Not Pertinent, CAD, Hypertension, Other - Schizophrenia and bipolar disorder Patient has homicidal ideation: No - Past Medical History Cardiac Medical History: Denies: Hx Congestive Heart Failure, Hx Hypertension Pulmonary Medical History: Reports: Hx Bronchitis - w/ RAD, Hx Pneumonia Denies: Hx Asthma, Hx Tuberculosis Neurological Medical History: Denies: Hx Seizures Endocrine Medical History: Reports: Hx Diabetes Mellitus Type 2 - The patient actually reported hypoglycemia to me and denied that she had DM Renal/ Medical History: Denies: Hx Peritoneal Dialysis Musculoskeletal Medical History: Reports Hx Arthritis - bilateral knees Psychiatric Medical History: Reports: Hx Bipolar Disorder, Hx Depression Denies: Hx Schizophrenia Past Surgical History: Reports: Hx Abdominal Surgery - gastric bypass, Hx Cholecystectomy, Hx Gastric Bypass Surgery - 1994, Hx Tonsillectomy, Hx Tubal Ligation. Denies: Hx Hysterectomy - Immunizations Immunizations up to date: Yes Hx Diphtheria, Pertussis, Tetanus Vaccination: Yes Physical Exam - Vital signs Vitals: Temp 97.9 F 03/30/20 19:54 Course - Vital Signs Vital signs: Temp Pulse Resp BP Pulse Ox 97.7 F 65 20 99/63 L 94 03/30/20 23:16 03/30/20 23:16 03/30/20 23:16 03/30/20 23:16 03/30/20 23:16 - Laboratory Result Diagrams: 03/30/20 20:41 03/30/20 20:41 Laboratory results interpreted by me: 03/30/20 03/30/20 20:41 20:41 WBC 3.9 L Hgb 10.5 L Hct 32.3 L MCH 26.4 L RDW 17.4 H [place] % (Auto) 13.9 H Eos % (Auto) 8.6 H Est GFR (MDRD) Non-Af 58 L AST 37 H Discharge - Discharge Clinical Impression: Back pain Qualifiers: Back pain location: thoracic back pain Chronicity: acute Back pain laterality: bilateral Qualified Code(s): M54.6 - Pain in thoracic spine Condition: Stable Disposition: HOME, SELF-CARE Instructions: Acetaminophen Additional Instructions: Please follow-up with your primary care provider soon as possible. Urinalysis showed no signs of infection and your CT scan showed no abnormal findings. You may use Tylenol for pain relief. You may return to the emergency department if you develop new or worsening symptoms. Referrals: YEE RAPHAEL MD [Primary Care Provider] - Follow up as needed
[2020-03-31 03:30] VITALS: BP 102/66
== END 2020-03-31 03:29 | disposition home or self-care (01) ==
LOC: ER 19:54
DX: M54.6 Pain in thoracic spine (principal); R39.198 Other difficulties with micturition; R10.9 Unspecified abdominal pain; R50.9 Fever, unspecified; Z88.1 Allergy status to other antibiotic agents
CPT/HCPCS: 99284; 96360; 36415; 85025; 80053; 81001; 74176; J7030

== ENCOUNTER 2020-05-04 15:24 | Emergency (ER) | payer BC ==
[2020-05-04 16:04] VITALS: BP 98/56
[2020-05-04] MEDS ORDERED: ACETAMINOPHEN 325 MG TABLET PO ONE (16:27)
--- NOTE | 2020-05-04 16:32 | ER Document Report ---
HPI - HPI Patient complains to provider of: Back Pain Time Seen by Provider: 05/04/20 16:19 Pain Level: 5 Context: 54-year-old female past medical history significant for bipolar, manic depressive, osteoarthritis presents to the emergency room via EMS complaining of some mid upper back pain. 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 She did not fall or cause any other injuries to her back. Did not take any medications for her symptoms. Denies any shortness of breath, denies any difficulty breathing. Denies any numbness or tingling to her upper extremities. Pain is nonradiating. Associated Symptoms: None Exacerbated by: Movement Relieved by: Remaining still Similar symptoms previously: No Recently seen / treated by doctor: No - ROS Systems Reviewed and Negative: Yes All other systems reviewed and negative - NEURO Neurology: DENIES: Weakness - RESPIRATORY Respiratory: DENIES: Trouble Breathing, Coughing - REPRODUCTIVE Reproductive: DENIES: : - MUSCULOSKELETAL Musculoskeletal: REPORTS: Back Pain - DERM Skin Color: Normal Skin Problems: None Past Medical History - General Information source: Patient - Social History Smoking Status: Never Smoker Frequency of alcohol use: None Drug Abuse: None Family History: Reviewed & Not Pertinent, CAD, Hypertension, Other - Schizophrenia and bipolar disorder Patient has homicidal ideation: No - Past Medical History Cardiac Medical History: Denies: Hx Congestive Heart Failure, Hx Hypertension Pulmonary Medical History: Reports: Hx Bronchitis - w/ RAD, Hx Pneumonia Denies: Hx Asthma, Hx Tuberculosis Neurological Medical History: Denies: Hx Seizures Endocrine Medical History: Reports: Hx Diabetes Mellitus Type 2 - The patient actually reported hypoglycemia to me and denied that she had DM Renal/ Medical History: Denies: Hx Peritoneal Dialysis Musculoskeletal Medical History: Reports Hx Arthritis - bilateral knees Psychiatric Medical History: Reports: Hx Bipolar Disorder, Hx Depression Denies: Hx Schizophrenia Past Surgical History: Reports: Hx Abdominal Surgery - gastric bypass, Hx Cholecystectomy, Hx Gastric Bypass Surgery - 1994, Hx Tonsillectomy, Hx Tubal Ligation. Denies: Hx Hysterectomy - Immunizations Immunizations up to date: Yes Hx Diphtheria, Pertussis, Tetanus Vaccination: Yes Vertical Provider Document - CONSTITUTIONAL Agree With Documented VS: Yes Exam Limitations: No Limitations General Appearance: Mild Distress - INFECTION CONTROL TRAVEL OUTSIDE OF THE [place] IN LAST 30 DAYS: No - HEENT HEENT: Atraumatic, Normocephalic - NECK Neck: Normal Inspection, Supple, Thyroid Normal - RESPIRATORY Respiratory: Breath Sounds Normal, No Respiratory Distress, Chest Non-Tender - CARDIOVASCULAR Cardiovascular: Regular Rate, Regular Rhythm, No Murmur - BACK Back: Abnormal Inspection - Tenderness on palpation from T3-T5, with some muscle spasms palpated. No obvious deformities noted. [employer] strength is equal and adequate bilaterally. Able to fully shrug shoulders without difficulty.. negative: CVA Tenderness-Right, CVA Tenderness-Left - MUSCULOSKELETAL/EXTREMETIES Musculoskeletal/Extremeties: FROM, Non-Tender - NEURO Level of Consciousness: Awake, Alert, Appropriate Motor/Sensory: No Motor Deficit, No Sensory Deficit Notes: Positive radial pulses bilaterally. [employer] strength equal and adequate bilaterally. Bilateral brachial reflexes are equal and adequate bilaterally. Patient is neurovascularly intact. - DERM Integumentary: Warm, Dry, No Rash Course - Re-evaluation Re-evalutation: 05/04/20 16:30 Patient is neurologically and neurovascularly intact. Patient on multiple medications for her bipolar, manic depression, and chronic pain including Percocet. Patient was counseled that we can give her Tylenol here but cannot give her any medications due to the interactions with her current medications. Patient was counseled on need to follow-up outpatient through her employer for Worker's Comp. referral if she is unable to return to work tomorrow. Patient was given strict return to the emergency room guidelines. Return for any new or worsening symptoms. All questions were answered. Patient verbalized understanding and agrees with plan of care. - Vital Signs Vital signs: Temp Pulse Resp BP Pulse Ox 98.6 F 72 20 98/56 L 96 05/04/20 15:57 05/04/20 15:57 05/04/20 15:57 05/04/20 15:57 05/04/20 15:57 Discharge - Discharge Clinical Impression: Upper back pain, Muscle strain of upper back Condition: Stable Disposition: HOME, SELF-CARE Instructions: Ice Packs ([facility]), Muscle Strain ([facility]), Upper Back Strain ([facility]) Additional Instructions: Can take Tylenol as needed for pain. Continue current home medications. Contact your employer for an outpatient follow-up to Worker's Compensation if you are unable to return to work tomorrow. Return to the emergency room for any new or worsening symptoms. Forms: Return to Work Referrals: YEE RAPHAEL MD [Primary Care Provider] - Follow up as needed
== END 2020-05-04 16:33 | disposition home or self-care (01) ==
LOC: ER 15:24
DX: S29.012A Strain of muscle and tendon of back wall of thorax, initial encounter (principal); M54.6 Pain in thoracic spine; X58.XXXA Exposure to other specified factors, initial encounter; Z98.84 Bariatric surgery status
CPT/HCPCS: 99283

== ENCOUNTER 2020-05-27 17:22 | Emergency (ER) | payer BC ==
[2020-05-27] MEDS ORDERED: RINGERS SOLUTION,LACTATED 1,000 ML IV ONE (18:52)
--- NOTE | 2020-05-27 18:53 | ER Document Report ---
ED GI/ - General Chief Complaint: Upper Abdominal Pain Stated Complaint: ABDOMINAL PAIN,VOMITING Time Seen by Provider: 05/27/20 17:45 Notes: 54-year-old woman presents to the emergency department with a history of vomiting episodes associated with whenever she eats food. This is been ongoing since . States that she went to her doctor's office today to be checked and blood sugar dropped to 36. They gave her sugar tablets and when she was feeling better instructed her to come to the emergency department because she needed further testing. She has a history of a gastric bypass surgery done approximately 12 years ago. She denies abdominal pain, fever, urinary symptoms or change in her bowel function. TRAVEL OUTSIDE OF THE [place] IN LAST 30 DAYS: No - Related Data Allergies/Adverse Reactions: ciprofloxacin [From Cipro] Allergy (Verified 05/27/20 17:52) Home Medications: Risperdal, Lexapro. Tolteradine, ASA, propranalol Past Medical History - Social History Smoking Status: Never Smoker Frequency of alcohol use: Occasional Drug Abuse: None Family History: Reviewed & Not Pertinent, CAD, Hypertension, Other - Schizophrenia and bipolar disorder - Past Medical History Cardiac Medical History: Denies: Hx Congestive Heart Failure, Hx Hypertension Pulmonary Medical History: Reports: Hx Bronchitis - w/ RAD, Hx Pneumonia Denies: Hx Asthma, Hx Tuberculosis Neurological Medical History: Denies: Hx Seizures Endocrine Medical History: Reports: Hx Diabetes Mellitus Type 2 - The patient actually reported hypoglycemia to me and denied that she had DM Renal/ Medical History: Denies: Hx Peritoneal Dialysis Musculoskeletal Medical History: Reports Hx Arthritis - bilateral knees Psychiatric Medical History: Reports: Hx Bipolar Disorder, Hx Depression Denies: Hx Schizophrenia Past Surgical History: Reports: Hx Abdominal Surgery - gastric bypass, Hx Cholecystectomy, Hx Gastric Bypass Surgery - 1994, Hx Tonsillectomy, Hx Tubal Ligation. Denies: Hx Hysterectomy - Immunizations Immunizations up to date: Yes Hx Diphtheria, Pertussis, Tetanus Vaccination: Yes Review of Systems - Review of Systems Notes: Constitutional: Negative for fever. HENT: Negative for sore throat. Eyes: Negative for visual changes. Cardiovascular: Negative for chest pain. Respiratory: Negative for shortness of breath. Gastrointestinal: + Vomiting episodes Genitourinary: Negative for dysuria. Musculoskeletal: Negative for back pain. Skin: Negative for rash. Neurological: Negative for headaches, weakness or numbness. 10 point ROS negative except as marked above and in HPI. Physical Exam - Vital signs Vitals: Temp Pulse Resp BP Pulse Ox 98.8 F 85 18 121/69 97 05/27/20 17:40 05/27/20 17:40 05/27/20 17:40 05/27/20 17:40 05/27/20 17:40 - Notes Notes: PHYSICAL EXAMINATION: Physical Exam: General: Obese 54-year-old woman in no acute distress HEENT: NC/AT, pupils equal round and reactive to light, MM moist,nares clear, oropharynx clear, airway patent Neck: supple, no adenopathy, no masses. Good range of motion Lungs: clear, no wheezing, no rales no rhonchi CVS: Regular rate and rhythm no murmur gallop or rub Abdomen: Soft, active, nontender, no masses, no hepatosplenomegaly Ext: No edema, clubbing or cyanosis. Neuro: Alert and responsive, moving all 4 extremities on command, cranial nerves intact, no focal findings Skin: Intact no open lesions, no rash PSYCH: Normal mood, normal affect. Course - Re-evaluation Re-evalutation: 05/28/20 00:[address] scan with oral and IV contrast, she has a previous history of gastric bypass surgery. There is no acute pathology noted on her CT scan, no obstruction and no gastric outlet delay. I explained to the patient that her x- rays are normal. We will be sending her home on PPI and antiemetic medications. Also encouraging that she follow-up with her primary care doctor for referral to GI if her symptoms continue. Patient is in agreement with that plan. - Vital Signs Vital signs: Temp Pulse Resp BP Pulse Ox 97.8 F 79 22 H 132/80 H 97 05/27/20 23:24 05/27/20 23:24 05/27/20 23:24 05/27/20 23:24 05/27/20 23:24 - Laboratory Result Diagrams: 05/27/20 19:03 05/27/20 19:03 Laboratory results interpreted by me: 05/27/20 05/27/20 19:03 19:03 Hgb 10.8 L Hct 34.3 L MCV 77 L MCH 24.2 L MCHC 31.4 L RDW 16.6 H Lymph % (Auto) 9.5 L BUN 21 H AST 39 H - Diagnostic Test Radiology reviewed: Image reviewed, Reports reviewed Radiology results interpreted by me: 05/28/20 00:18 CT abdomen and pelvis with oral and IV contrast.: No acute findings. No gastric outlet obstruction. Discharge - Discharge Clinical Impression: Hypoglycemia, BMI 50.0-59.9, adult Vomiting Qualifiers: Vomiting type: unspecified Vomiting Intractability: unspecified Nausea presence: unspecified Qualified Code(s): R11.10 - Vomiting, unspecified Condition: Good Disposition: HOME, SELF-CARE Instructions: Antinausea Medication ([facility]), Vomiting ([facility]) Additional Instructions: You are seen in the emergency department tonight with history of vomiting episodes after eating. CT scan with oral and IV contrast does not show any obstructive or blockage in the gastric outlet. You have been given medications for intestinal spasms, acid blockade and nausea. Please take the medications as prescribed and follow-up with your primary care doctor for further evaluation. If your symptoms continue a referral to a bolt loader would be in order. HOME CARE INSTRUCTIONS & INFORMATION: Thank you for choosing us for your medical needs. We hope you're satisfied with the care you received. After you leave, you must properly care for your problem and, at the same time, observe its progress. Any condition can change. Some illnesses can change rapidly over hours or days. If your condition worsens, return to the Emergency Department or see your physician promptly. ABOUT YOUR X-RAYS AND EKG'S: If you had an EKG or X-rays taken, they have been read by the Emergency Physician. The X-rays and EKG's will also be read by a Radiologist or Golf Course Laborer within 24 hours. If discrepancies are noted, you will be notified by telephone. Please be certain the ED has a correct telephone number & address where you can be reached. Also, realize that some fractures or abnormalities do not show up on initial X-rays. If your symptoms continue, see your physician. ABOUT YOUR LABORATORY TEST: If you had laboratory tests, the results have been reviewed by the Emergency Physician. Some test results (for example cultures) may not be available for several days. You will be contacted if any test result shows you need additional treatment. Please be certain the ED has a correct telephone number and address where you can be reached. ABOUT YOUR MEDICATIONS: You will receive instructions on how to take your medicine on the prescription label you receive. Additional information may be provided by the Pharmacy. If you have questions afterwards, call the ED for clarification or further instructions. Some prescribed medications may cause drowsiness. Do not perform tasks such as driving a car or operating machinery without consulting your Pharmacist. If you feel you need a refill of pain medication, your condition will need re-evaluation. Please do not call for a refill of any medication. ABOUT YOUR SIGNATURE: Signature of this document acknowledges to followin. Understanding that you received emergency treatment and that you may be released before al medical problems are known or treated. Please be certain the ED has a correct phone number & address where you can be reached. 2. Acknowledgement that you will arrange for follow-up care as recommended. 3. Authorization for the Emergency Physician to provide information to your follow-up Physician in order to maximize your care. AT ANY TIME, IF YOUR SYMPTOMS CHANGE SIGNIFICANTLY OR WORSEN OR YOU DEVELOP NEW SYMPTOMS, RETURN TO THE EMERGENCY DEPARTMENT IMMEDIATELY FOR RE-EVALUATION. OUR GOAL IS TO PROVIDE EXCELLENT MEDICAL CARE! WE HOPE THAT WE HAVE MET YOUR EXPECTATIONS DURING YOUR EMERGENCY DEPARTMENT VISIT AND THAT YOU FEEL YOU HAVE RECEIVED EXCELLENT CARE! Prescriptions: Dicyclomine HCl [Bentyl 10 mg Capsule] 1 cap PO TID #30 cap Omeprazole 40 mg PO DAILY #20 capsule. Ondansetron [Zofran Odt 4 mg Tablet] 1 - 2 tab PO Q4H PRN #15 tab.rapdis PRN Reason: For Nausea/Vomiting
[2020-05-27 19:26] LABS: ABSOLUTE EOSINOPHILS # (AUTO) 0.3 10^3/uL (0.0-0.6); ABSOLUTE LYMPHOCYTES (AUTO) 0.6 10^3/uL (0.5-4.7); ABSOLUTE MONOCYTES (AUTO) 0.8 10^3/uL (0.1-1.4); ABSOLUTE NEUT (AUTO) 4.9 10^3/uL (1.7-8.2); BASOPHILS % (AUTO) 0.7 % (0-2); EOSINOPHILS % (AUTO) 3.9 % (0-6); HEMATOCRIT 34.3 % (36.0-47.0); HEMOGLOBIN 10.8 g/dL (12.0-15.5); LYMPHOCYTES % (AUTO) 9.5 % (13-45); MEAN CORPUSCULAR HEMOGLOBIN 24.2 pg (27.0-33.4); MEAN CORPUSCULAR HGB CONC 31.4 g/dL (32.0-36.0); MEAN CORPUSCULAR VOLUME 77 fl (80-97); MONOCYTES % (AUTO) 11.6 % (3-13); PLATELET COUNT 240 10^3/uL (150-450); RED BLOOD COUNT 4.45 10^6/uL (3.72-5.28); RED CELL DISTRIBUTION WIDTH 16.6 % (11.5-14.0); SEGMENTED NEUTROPHILS % (AUTO) 74.3 % (42-78); TOTAL CELLS COUNTED % (AUTO) 100 %; WHITE BLOOD COUNT 6.6 10^3/uL (4.0-10.5)
[2020-05-27 19:29] LABS: APPEARANCE,URINE CLEAR; BILIRUBIN,URINE NEGATIVE (NEGATIVE); COLOR,URINE YELLOW; GLUCOSE, URINE NEGATIVE (NEGATIVE); KETONES,URINE NEGATIVE (NEGATIVE); PROTEIN,URINE NEGATIVE (NEGATIVE); URINE SPECIFIC GRAVITY 1.015; UROBILINOGEN,URINE NEGATIVE mg/dL (<2.0)
[2020-05-27 20:00] LABS: ALBUMIN 3.9 g/dL (3.5-5.0); ALKALINE PHOSPHATASE 108 U/L (38-126); ANION GAP 6 (5-19); ASPARTATE AMINO TRANSFERASE 39 U/L (14-36); BILIRUBIN,TOTAL 0.2 mg/dL (0.2-1.3); BLOOD UREA NITROGEN 21 mg/dL (7-20); CALCIUM 8.6 mg/dL (8.4-10.2); CARBON DIOXIDE 29 mmol/L (22-30); CHLORIDE 103 mmol/L (98-107); GLUCOSE 94 mg/dL (75-110); POTASSIUM 4.1 mmol/L (3.6-5.0); TOTAL PROTEIN 6.8 g/dL (6.3-8.2)
--- NOTE | 2020-05-27 22:26 | RADIOLOGY REPORT (SQ) ---
EXAM DESCRIPTION: CLINICAL HISTORY: 54 years Female Possible obstruction COMPARISON: 03/31/2020 CT abdomen pelvis, 06/12/2014 CT chest. TECHNIQUE: Contiguous axial images obtained through the abdomen and pelvis without IV contrast. Reformatted images obtained. This exam was performed according to our department optimization program which includes automated exposure control, adjustment of the mA and/or kv according to patient size and/or use of iterative reconstruction technique. FINDINGS: There are nodules in the lung bases. Nodule in the base of the left lung anteriorly in the lingula measures 7 mm which is unchanged. Nodule in the right lung base measuring 5 mm on image four not obviously present on the remote examination. It is unchanged from the examination in March. Additional smaller nodular densities in the right middle lobe and in the right lung base also stable when compared to March. The liver appears unremarkable. The spleen and pancreas appear unremarkable. No adrenal masses. The kidneys appear unremarkable. No hydronephrosis or definite ureteral calculi. The gallbladder is absent. No aneurysmal dilatation of the aorta. No bowel obstruction. IUD in the uterus. There appear to be clips in the fallopian tubes. Nonvisualization of the appendix. No free pelvic fluid. IMPRESSION: No evidence of acute process in the abdomen or pelvis Gastric bypass Nodules in the lung bases which appears stable when compared to the examination from March but some appear new compared to the more remote examination from 2013. Recommend follow-up in 3-[address] at 18-24 months.
[2020-05-28] MEDS ORDERED: ACETAMINOPHEN 325 MG TABLET PO ONE (00:23)
[2020-05-28 01:51] VITALS: BP 137/75
== END 2020-05-28 01:55 | disposition home or self-care (01) ==
LOC: ER 17:22
DX: R10.10 Upper abdominal pain, unspecified (principal); R11.10 Vomiting, unspecified; E16.2 Hypoglycemia, unspecified; Z68.43 Body mass index [BMI] 50.0-59.9, adult; Z88.3 Allergy status to other anti-infective agents; Z98.84 Bariatric surgery status
CPT/HCPCS: 99284; 96360; 96361; 36415; 83690; 85025; 80053; 81001; 74177; J7120

== ENCOUNTER 2020-08-03 15:06 | Emergency (ER) | payer BC ==
--- NOTE | 2020-08-03 15:42 | ER Document Report ---
ED Medical Screen (RME) - General Chief Complaint: Swelling of Lower Extremity Stated Complaint: LEG SWELLING Time Seen by Provider: 08/03/20 15:33 Primary Care Provider: NINA RAPHAEL MD [Primary Care Provider] - Follow up as needed Mode of Arrival: Wheelchair Information source: Patient Notes: HPI; 54-year-old female presents to the emergency room complaining of worsening chronic left lower leg swelling that she noticed yesterday. States she is had issues with swelling for the past several months and was told by her primary care physician to wear compression stockings which she states she has been wearing without relief. Is on her feet the majority of the day. She denies any history of previous DVTs or PEs. She denies any chest pain or shortness of breath, no recent surgeries. Denies . PE: Alert and oriented x3. Lungs: Clear to auscultation without rales, rhonchi, wheezes. Heart: Regular rate rhythm without murmurs, rubs, gallops. 3+ pitting edema noted to the bilateral lower extremities. Left calf is significantly larger than the right. Positive left pedal pulse. I have greeted and performed a rapid initial assessment of this patient. A comprehensive ED assessment and evaluation of the patient, analysis of test results and completion of the medical decision making process will be conducted by additional ED providers. I have specifically instructed the patient or family members with the patient to immediately return to any nursing staff should anything change in the patient's condition or with their chief complaint. TRAVEL OUTSIDE OF THE [place] IN LAST 30 DAYS: No - Related Data Allergies/Adverse Reactions: ciprofloxacin [From Cipro] Allergy (Verified 05/27/20 17:52) Home Medications: Gabapentin, Lexaprol, Tolterodine, Atorvastatin Past Medical History - Past Medical History Cardiac Medical History: Denies: Hx Congestive Heart Failure, Hx Hypertension Pulmonary Medical History: Reports: Hx Bronchitis - w/ RAD, Hx Pneumonia Denies: Hx Asthma, Hx Tuberculosis Neurological Medical History: Denies: Hx Seizures Endocrine Medical History: Reports: Hx Diabetes Mellitus Type 2 - The patient actually reported hypoglycemia to me and denied that she had DM Renal/ Medical History: Denies: Hx Peritoneal Dialysis Musculoskeltal Medical History: Reports Hx Arthritis - bilateral knees Psychiatric Medical History: Reports: Hx Bipolar Disorder, Hx Depression Denies: Hx Schizophrenia Past Surgical History: Reports: Hx Abdominal Surgery - gastric bypass, Hx Cholecystectomy, Hx Gastric Bypass Surgery - 1994, Hx Tonsillectomy, Hx Tubal Ligation. Denies: Hx Hysterectomy - Immunizations Immunizations up to date: Yes Hx Diphtheria, Pertussis, Tetanus Vaccination: Yes Physical Exam - Vital signs Vitals: Temp Pulse Resp BP Pulse Ox 98.6 F 75 16 111/69 97 08/03/20 15:22 08/03/20 15:22 08/03/20 15:22 08/03/20 15:22 08/03/20 15:22 Course - Vital Signs Vital signs: Temp Pulse Resp BP Pulse Ox 98.6 F 75 16 111/69 97 08/03/20 15:22 08/03/20 15:22 08/03/20 15:22 08/03/20 15:22 08/03/20 15:22 Doctor's Discharge - Discharge Referrals: NINA RAPHAEL MD [Primary Care Provider] - Follow up as needed
--- NOTE | 2020-08-03 16:40 | RADIOLOGY REPORT (SQ) ---
EXAM DESCRIPTION: CHEST SINGLE VIEW IMAGES COMPLETED DATE/TIME: 08/03/2020 4:17 pm REASON FOR STUDY: edema COMPARISON: 02/11/2020 TECHNIQUE: Single frontal radiographic view of the chest acquired. NUMBER OF VIEWS: One view. LIMITATIONS: None. FINDINGS: LUNGS AND PLEURA: No pneumothorax. No consolidation or pleural effusion. MEDIASTINUM AND HILAR STRUCTURES: Stable. HEART AND VASCULAR STRUCTURES: Stable. BONES: No acute findings. HARDWARE: None in the chest. OTHER: No other significant finding. IMPRESSION: NO ACUTE FINDINGS. TECHNICAL DOCUMENTATION: JOB ID: [id number] [place]-72 2010 [employer]- All Rights Reserved Reading location - IP/workstation name: [email or web address]
[2020-08-03 16:48] LABS: ABSOLUTE BASOPHILS # (AUTO) 0.1 10^3/uL (0.0-0.2); ABSOLUTE EOSINOPHILS # (AUTO) 0.2 10^3/uL (0.0-0.6); ABSOLUTE LYMPHOCYTES (AUTO) 0.7 10^3/uL (0.5-4.7); ABSOLUTE MONOCYTES (AUTO) 0.5 10^3/uL (0.1-1.4); BASOPHILS % (AUTO) 2.2 % (0-2); HEMATOCRIT 31.5 % (36.0-47.0); LYMPHOCYTES % (AUTO) 19.4 % (13-45); MEAN CORPUSCULAR HEMOGLOBIN 23.2 pg (27.0-33.4); MEAN CORPUSCULAR HGB CONC 31.6 g/dL (32.0-36.0); MEAN CORPUSCULAR VOLUME 74 fl (80-97); MONOCYTES % (AUTO) 14.3 % (3-13); PLATELET COUNT 237 10^3/uL (150-450); RED CELL DISTRIBUTION WIDTH 18.2 % (11.5-14.0); SEGMENTED NEUTROPHILS % (AUTO) 57.1 % (42-78); TOTAL CELLS COUNTED % (AUTO) 100 %; WHITE BLOOD COUNT 3.5 10^3/uL (4.0-10.5)
[2020-08-03 17:02] LABS: ALBUMIN 3.6 g/dL (3.5-5.0); ALKALINE PHOSPHATASE 132 U/L (38-126); ANION GAP 7 (5-19); ASPARTATE AMINO TRANSFERASE 39 U/L (14-36); BILIRUBIN,DIRECT 0.2 mg/dL (0.0-0.4); BILIRUBIN,TOTAL 0.4 mg/dL (0.2-1.3); BLOOD UREA NITROGEN 15 mg/dL (7-20); CALCIUM 8.7 mg/dL (8.4-10.2); CARBON DIOXIDE 28 mmol/L (22-30); CHLORIDE 107 mmol/L (98-107); GLUCOSE 94 mg/dL (75-110); POTASSIUM 4.3 mmol/L (3.6-5.0); TOTAL PROTEIN 6.2 g/dL (6.3-8.2)
--- NOTE | 2020-08-03 17:48 | RADIOLOGY REPORT (SQ) ---
EXAM DESCRIPTION: VENOUS UNILATERAL LOWER IMAGES COMPLETED DATE/TIME: 08/03/2020 5:29 pm REASON FOR STUDY: left leg swelling COMPARISON: None. TECHNIQUE: Dynamic and static cook scale and color images acquired of the left leg venous system. Se lected spectral images acquired with additional compression and augmentation maneuvers. The contralat eral common femoral vein and saphenofemoral junction were also imaged. Images stored on PACS. LIMITATIONS: None. FINDINGS: COMMON FEMORAL: Normal phasicity, compression and augmentation. No visualized echogenic ma terial on cook scale. No defects on color images. FEMORAL: Normal compression and augmentation. No visualized echogenic material on cook scale. No defe cts on color images. POPLITEAL: Normal compression, augmentation. No visualized echogenic material on cook scale. No defec ts on color images. CALF VESSELS: Normal compression, augmentation. No visualized echogenic material on cook scale. No de fects on color images. GSV and SSV: Normal compression, augmentation. No visualized echogenic material on cook scale. No def ects on color images. ANY DEEP VENOUS INSUFFICIENCY: Not evaluated. ANY EVIDENCE OF POPLITEAL CYST: No. OTHER: No other significant finding. CONTRALATERAL COMMON FEMORAL VEIN AND SAPHENOFEMORAL JUNCTION: Normal phasicity, compression and augmentation. No visualized echogenic material on cook scale. No de fects on color images. IMPRESSION: NO EVIDENCE DVT OR SVT IN THE LEFT LEG. TECHNICAL DOCUMENTATION: JOB ID: [id number] [employer]- All Rights Reserved Reading location - IP/workstation name: [email or web address]
[2020-08-03] MEDS ORDERED: FUROSEMIDE INJ/PF 20 MG/2 ML SDV IM ONE (18:59)
--- NOTE | 2020-08-03 19:17 | ER Document Report ---
ED General - General Chief Complaint: Swelling of Lower Extremity Stated Complaint: LEG SWELLING Time Seen by Provider: 08/03/20 15:33 Primary Care Provider: NINA RAPHAEL MD [Primary Care Provider] - Follow up as needed Mode of Arrival: Wheelchair TRAVEL OUTSIDE OF THE [place] IN LAST 30 DAYS: No - HPI Notes: Patient is a 54-year-old female with chronic lower extremity edema, who presents with a complaint of it worsening over the last 2 to 3 days. She states her left lower extremity is always more swollen than her right. She states yesterday it seemed warm to the touch. She states is better than it was yesterday. Said no fevers or chills. No nausea or vomiting. No chest pain or shortness of breath. She has no personal history of DVT or PE, no family history of DVT or PE. She has had no prolonged immobilization, recent surgery. 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 - Related Data Allergies/Adverse Reactions: ciprofloxacin [From Cipro] Allergy (Verified 05/27/20 17:52) Home Medications: Gabapentin, Lexaprol, Tolterodine, Atorvastatin Past Medical History - General Information source: Patient - Social History Smoking Status: Unknown if Ever Smoked Family History: Reviewed & Not Pertinent, CAD, Hypertension, Other - Sc hizophrenia and bipolar disorder - Past Medical History Cardiac Medical History: Reports: Hx Hypercholesterolemia Denies: Hx Congestive Heart Failure, Hx Hypertension Pulmonary Medical History: Reports: Hx Bronchitis - w/ RAD, Hx Pneumonia Denies: Hx Asthma, Hx Tuberculosis Neurological Medical History: Denies: Hx Seizures Endocrine Medical History: Reports: Hx Diabetes Mellitus Type 2 - The patient actually reported hypoglycemia to me and denied that she had DM Renal/ Medical History: Denies: Hx Peritoneal Dialysis Musculoskeletal Medical History: Reports Hx Arthritis - bilateral knees Psychiatric Medical History: Reports: Hx Bipolar Disorder, Hx Depression Denies: Hx Schizophrenia Past Surgical History: Reports: Hx Cholecystectomy, Hx Gastric Bypass Surgery - 1994, Hx Tonsillectomy, Hx Tubal Ligation. Denies: Hx Hysterectomy - Immunizations Immunizations up to date: Yes Hx Diphtheria, Pertussis, Tetanus Vaccination: Yes Review of Systems - Review of Systems Constitutional: No symptoms reported EENT: No symptoms reported Cardiovascular: See HPI Respiratory: No symptoms reported Gastrointestinal: No symptoms reported Genitourinary: No symptoms reported Musculoskeletal: See HPI Skin: No symptoms reported Neurological/Psychological: No symptoms reported Physical Exam - Vital signs Vitals: Temp Pulse Resp BP Pulse Ox 98.6 F 75 16 111/69 97 08/03/20 15:22 08/03/20 15:22 08/03/20 15:22 08/03/20 15:22 08/03/20 15:22 - Notes Notes: This is a very pleasant morbidly obese female, who appears her stated age, no acute distress. Initially upon walking in the room she was sleeping flat on her back. She woke easily with verbal stimuli. Vital signs reviewed, please refer to chart. Head is normocephalic, atraumatic. Pupils equal round, reactive to light. Neck is supple without meningismus. Heart is regular rate and rhythm. Lungs are clear to auscultation bilaterally. Abdomen is soft, nontender, normoactive bowel sounds throughout. Extremities without cyanosis, clubbing. She has 3+ pitting edema to bilateral lower extremities, left greater than right. She has some diffuse erythema and calor associated with his bilateral lower extremities, again left greater than right. Posterior calves are nontender. Peripheral pulses are equal. Skin is warm and dry. Patient is awake, alert, neurological exam is nonfocal. Course - Re-evaluation Re-evalutation: 08/03/20 19:23 Patient presents to the emergency department for evaluation of lower extremity edema. It seems that this is in fact chronic. I suspect that this has largely to do with this patient's diet as well as her weight. In regards to the erythema, I do not suspect infection at this time. The patient has had no fevers or chills. She has no leukocytosis. The erythema that I am seeing seems most consistent with venous stasis. We talked at length about lifestyle changes, wearing the compression stockings, and other steps she can take to minimize her edema. I encouraged her to discuss this with her primary care provider as well. I also explained to the patient that a repeat Doppler would be indicated if her symptoms persist in 1 week and she voiced understanding. She is to return to the ED with worsening or new concerning symptoms of any so rt. - Vital Signs Vital signs: Temp Pulse Resp BP Pulse Ox 98.6 F 75 16 111/69 97 08/03/20 15:22 08/03/20 15:22 08/03/20 15:22 08/03/20 15:22 08/03/20 15:22 - Laboratory Result Diagrams: 08/03/20 16:25 08/03/20 16:25 Laboratory results interpreted by me: 08/03/20 08/03/20 08/03/20 16:25 16:25 16:25 WBC 3.5 L Hgb 10.0 L Hct 31.5 L MCV 74 L MCH 23.2 L MCHC 31.6 L RDW 18.2 H Pepin % (Auto) 14.3 H Eos % (Auto) 7.0 H Baso % (Auto) 2.2 H AST 39 H Alkaline Phosphatase 132 H NT-Pro-B Natriuret Pep 200 H Total Protein 6.2 L - Diagnostic Test Radiology reviewed: Reports reviewed Radiology results interpreted by me: 08/03/20 19:23 Venous Doppler Study 08/03/20 15:39 IMPRESSION: NO EVIDENCE DVT OR SVT IN THE LEFT LEG. Chest X-Ray 08/03/20 15:40 IMPRESSION: NO ACUTE FINDINGS. Discharge - Discharge Clinical Impression: Bilateral lower extremity edema Condition: Stable Disposition: HOME, SELF-CARE Instructions: Dependent Edema ([facility]), Edema, Peripheral ([facility]) Additional Instructions: Decrease sodium intake, decrease fast food intake. Drink more water. Wear compression stockings as discussed. Try to keep legs elevated when you are off of them. Try to continue to use leg muscles when you are standing. Please consider trying to lose weight. Follow-up with your primary care provider this week. If the swelling in your legs persists, you should have another Doppler to evaluate you for a DVT, or a blood clot, in your legs next week. If you develop chest pain, shortness of breath, increased pain or swelling, or any other new or concerning symptoms, please return immediately to the emergency department for evaluation. Forms: Return to Work Referrals: NINA RAPHAEL MD [Primary Care Provider] - Follow up as needed
[2020-08-03 19:30] VITALS: BP 120/76
== END 2020-08-03 19:30 | disposition home or self-care (01) ==
LOC: ER 15:06
DX: R60.0 Localized edema (principal); L53.9 Erythematous condition, unspecified; E66.01 Morbid (severe) obesity due to excess calories; E78.00 Pure hypercholesterolemia, unspecified; F32.9 Major depressive disorder, single episode, unspecified; Z79.899 Other long term (current) drug therapy; Z98.84 Bariatric surgery status; Z88.1 Allergy status to other antibiotic agents
CPT/HCPCS: 99285; 96372; 36415; 85025; 80053; 83880; 93971; 71045; J1940

== ENCOUNTER 2020-09-02 01:26 | Emergency (ER) | payer BC ==
[2020-09-02] MEDS ORDERED: ACETAMINOPHEN 325 MG TABLET PO ONE (02:53)
--- NOTE | 2020-09-02 03:59 | RADIOLOGY REPORT (SQ) ---
EXAM DESCRIPTION: XR SHOULDER 2 OR MORE VIEWS COMPLETED DATE/TME: 09/02/2020 00:00 CLINICAL HISTORY: 54 years, Female, bone pain COMPARISON: 02/11/2020 NUMBER OF VIEWS: Three TECHNIQUE: Three views of the left shoulder LIMITATIONS: None. FINDINGS: No acute fracture or dislocation. AC joint appears widened and measures 0.9 cm. No large soft tissue swelling. Visualized portions of the lungs are clear. IMPRESSION: Grade 2 AC joint separation. No acute fracture. copyright 2010 [employer]- All Rights Reserved
--- NOTE | 2020-09-02 05:50 | ER Document Report ---
ED General - General Chief Complaint: Shoulder Injury Stated Complaint: LEFT SHOULDER PAIN Time Seen by Provider: 09/02/20 05:49 Primary Care Provider: NINA RAPHAEL MD [Primary Care Provider] - Follow up in 3-5 days JENNIFER BOLAÑOS MD [ACTIVE STAFF] - Follow up in 3-5 days TRAVEL OUTSIDE OF THE [place] IN LAST 30 DAYS: No - HPI Notes: 54-year-old female to the emergency department with complaints of left shoulder pain that began tonight after she was helping to lift her father up off the floor. She states that he had fallen down and she was lifting him when she felt pain into her left shoulder. She states that Dr. Bolaños, her orthopedist, has been following her for several weeks for separation of her left AC joint. She thinks she may have injured it further. She denies not recall striking her shoulder or falling. She is right-hand dominant. She denies any left elbow, wrist, hand pain. - Related Data Allergies/Adverse Reactions: ciprofloxacin [From Cipro] Allergy (Verified 05/27/20 17:52) Home Medications: gabapentin, respiradone, propranolol, chol med, toltaridine, Past Medical History - General Information source: Patient - Social History Smoking Status: Never Smoker Frequency of alcohol use: None Drug Abuse: None Family History: Reviewed & Not Pertinent, CAD, Hypertension, Other - Past Medical History Cardiac Medical History: Reports: Hx Hypercholesterolemia Denies: Hx Congestive Heart Failure, Hx Hypertension Pulmonary Medical History: Reports: Hx Bronchitis - w/ RAD, Hx Pneumonia Denies: Hx Asthma, Hx Tuberculosis Neurological Medical History: Denies: Hx Seizures Endocrine Medical History: Reports: Hx Diabetes Mellitus Type 2 - The patient actually reported hypoglycemia to me and denied that she had DM Renal/ Medical History: Denies: Hx Peritoneal Dialysis Musculoskeletal Medical History: Reports Hx Arthritis - bilateral knees Psychiatric Medical History: Reports: Hx Bipolar Disorder, Hx Depression Denies: Hx Schizophrenia Past Surgical History: Reports: Hx Abdominal Surgery - gastric bypass, Hx Cholecystectomy, Hx Gastric Bypass Surgery - 1994, Hx Tonsillectomy, Hx Tubal Ligation. Denies: Hx Hysterectomy - Immunizations Immunizations up to date: Yes Hx Diphtheria, Pertussis, Tetanus Vaccination: Yes Review of Systems - Review of Systems Constitutional: denies: Chills, Fever EENT: No symptoms reported Cardiovascular: denies: Chest pain, Palpitations, Heart racing, Orthopnea, Dyspnea, Syncope, Dizziness, Lightheaded Respiratory: denies: Cough, Short of breath Gastrointestinal: denies: Abdominal pain, Diarrhea, Nausea, Vomiting Musculoskeletal: Joint pain - Left shoulder pain Skin: No symptoms reported Hematologic/Lymphatic: No symptoms reported Neurological/Psychological: No symptoms reported -: Yes All other systems reviewed and negative Physical Exam - Vital signs Vitals: Temp Pulse Resp BP Pulse Ox 97.7 F 70 16 117/68 99 09/02/20 02:01 09/02/20 02:01 09/02/20 02:01 09/02/20 02:01 09/02/20 02:01 Interpretation: Normal - General General appearance: Appears well, Alert In distress: None - HEENT Head: Normocephalic, Atraumatic Eyes: Normal Pupils: PERRL Neck: Normal, Supple - Respiratory Respiratory status: No respiratory distress Chest status: Nontender Breath sounds: Normal. No: Rales, Rhonchi, Wheezing Chest palpation: Normal - Cardiovascular Rhythm: Regular Heart sounds: Normal auscultation Murmur: No - Abdominal Inspection: Morbidly Obese Distension: No distension Bowel sounds: Normal Tenderness: Nontender Organomegaly: No organomegaly - Extremities Shoulder: Tender - Patient is to palpation to the left shoulder joint at the AC joint. There is mild edema but no grace deformity. Patient has reduced range of motion in the left shoulder. Approximately 75 degrees in all range of motions. She has no tenderness to palpation to the left elbow, left wrist, left hand. She has no snuffbox tenderness. Handgrip is 5 out of 5 bilaterally. Radial pulses are intact and equal. Cap refill is less than 2 seconds - Neurological Neuro grossly intact: Yes Cognition: Normal Orientation: AAOx4 Александр Coma Scale Eye Opening: Spontaneous [place] Coma Scale Verbal: Oriented [place] Coma Scale Motor: Obeys Commands Александр Coma Scale Total: 15 Speech: Normal Cranial nerves: Normal Cerebellar coordination: Normal Motor strength normal: LUE, RUE, LLE, RLE Additional motor exam normals: Equal cone runner Sensory: Normal - Psychological Associated symptoms: Normal affect, Normal mood - Skin Skin Temperature: Warm Skin Moisture: Dry Skin Color: Normal Course - Re-evaluation Re-evalutation: 09/02/20 Impression: Left shoulder separation. Grade 2 via x-ray here today. Unsure what grade she has been with Dr. Bolaños. We will place her in a shoulder immobilizer and have her follow-up with orthopedist. Will send home with small amount of pain medicine. She tells me that no pain medicine works except for Percocet. We will send her home with 6 tablets. - Vital Signs Vital signs: Temp Pulse Resp BP Pulse Ox 97.5 F 66 16 102/67 100 09/02/20 06:19 09/02/20 06:19 09/02/20 06:19 09/02/20 06:19 09/02/20 06:19 - Diagnostic Test Radiology reviewed: Image reviewed, Reports reviewed Discharge - Discharge Clinical Impression: Shoulder separation Shoulder pain, left Qualifiers: Chronicity: acute Qualified Code(s): M25.512 - Pain in left shoulder AC joint pain Qualifiers: Laterality: left Qualified Code(s): M25.512 - Pain in left shoulder Condition: Stable Disposition: HOME, SELF-CARE Additional Instructions: AC Joint Sprain The injury to your shoulder caused an acromioclavicular (AC) sprain. This is often called a "shoulder separation," involving the joint between the point of the shoulder-blade and the collarbone. This injury, while quite painful, will usually heal well without any permanent problems. The usual treatment is cold packs and a sling. (In rare cases, a shoulder separation may require surgery.) The shoulder will need to be rested until the pain and swelling decrease. With milder AC sprains, the shoulder can be used again within a few days, although motions such as throwing may be painful for months. The usual guideline is "if it hurts, don't do it." Please wear shoulder immobilizer to aid in your pain relief. Take medicines as prescribed. Your physician has assessed the severity of your shoulder separation. It is important that instructions be followed exactly concerning work, sports, and follow-up care. Your treatment plan may change based on the results of further check-ups. Please follow-up with your orthopedist, Dr. Bolaños, today. Prescriptions: Oxycodone HCl/Acetaminophen [Percocet 5-325 mg Tablet] 1 tab PO Q6H PRN #6 tablet PRN Reason: Forms: Return to Work Referrals: NINA RAPHAEL MD [Primary Care Provider] - Follow up in 3-5 days JENNIFER BOLAÑOS MD [ACTIVE STAFF] - Follow up in 3-5 days
[2020-09-02 06:21] VITALS: BP 102/67
== END 2020-09-02 06:30 | disposition home or self-care (01) ==
LOC: ER 01:26
DX: S43.102A Unspecified dislocation of left acromioclavicular joint, initial encounter (principal); X58.XXXA Exposure to other specified factors, initial encounter; M25.512 Pain in left shoulder; E78.00 Pure hypercholesterolemia, unspecified; F31.9 Bipolar disorder, unspecified; Z79.899 Other long term (current) drug therapy
CPT/HCPCS: 99284

== ENCOUNTER 2020-10-06 05:10 | Emergency (ER) | payer BC ==
[2020-10-06] MEDS ORDERED: CLINDAMYCIN 900 MG/D5W RTU 900 MG/50 ML RTUPB IV ONE (07:38)
[2020-10-06] MEDS ORDERED: MORPHINE SULFATE 10 MG/ML INJ IV ONE (07:40)
[2020-10-06] MEDS ORDERED: ONDANSETRON HCL INJ/PF 4 MG/2 ML SDV IV ONE (07:41)
[2020-10-06] MEDS ORDERED: HYDROCODONE/ACETAMINOPHEN 5-325 MG (6 TAB/ER DISP) PO PRN (07:56)
[2020-10-06] MEDS ORDERED: ONDANSETRON ODT 4 MG TAB (6 TAB/ER DISP) PO PRN (07:57)
--- NOTE | 2020-10-06 07:58 | ER Document Report ---
Entered by GARTH JANSEN SCRIBE 10/06/20 0741 Acting as scribe for:TJ CORREA IV, MD ED Oral Problem - General Chief Complaint: Toothache Stated Complaint: TOOTHE INFECTION, FACE SWOLLEN Time Seen by Provider: 10/06/20 07:30 Primary Care Provider: NINA RAPHAEL MD [Primary Care Provider] - Follow up as needed Mode of Arrival: Ambulatory Information source: Patient Notes: This 54 year old female patient presents to the ED today with complaints of left lower tooth pain that started x3 days ago. Patient that she woke with swelling to the left side of her lower lip around 0400. She also notes left-sided facial swelling, left ear pain, and nausea without emesis. She does have a dentist appointment scheduled for 10/09. Allergy to Cipro was verified. Denies fever. TRAVEL OUTSIDE OF THE [place] IN LAST 30 DAYS: No - Related Data Allergies/Adverse Reactions: ciprofloxacin [From Cipro] Allergy (Verified 05/27/20 17:52) Home Medications: respiradal. lexipro. atoravastatin. gabapentin. totareidne Past Medical History - General Information source: Patient, [facility] Records - Social History Smoking Status: Never Smoker Cigarette use (# per day): No Chew tobacco use (# tins/day): No Smoking Education Provided: No Frequency of alcohol use: None Drug Abuse: None Family History: Reviewed & Not Pertinent, CAD, Hypertension, Other - Past Medical History Cardiac Medical History: Reports: Hx Hypercholesterolemia Pulmonary Medical History: Reports: Hx Bronchitis - w/ RAD, Hx Pneumonia Endocrine Medical History: Reports: Hx Diabetes Mellitus Type 2 - The patient actually reported hypoglycemia to me and denied that she had DM Musculoskeletal Medical History: Reports Hx Arthritis - bilateral knees Psychiatric Medical History: Reports: Hx Bipolar Disorder, Hx Depression Past Surgical History: Reports: Hx Abdominal Surgery - gastric bypass, Hx Cholecystectomy, Hx Gastric Bypass Surgery - 1994, Hx Tonsillectomy, Hx Tubal Ligation - Immunizations Immunizations up to date: Yes Hx Diphtheria, Pertussis, Tetanus Vaccination: Yes Review of Systems - Review of Systems Constitutional: See HPI. denies: Fever EENT: See HPI, Ear pain, Mouth swelling, Dental problem Cardiovascular: No symptoms reported Respiratory: No symptoms reported Gastrointestinal: See HPI, Nausea. denies: Vomiting Genitourinary: No symptoms reported Female Genitourinary: No symptoms reported Musculoskeletal: No symptoms reported Skin: No symptoms reported Hematologic/Lymphatic: No symptoms reported Neurological/Psychological: No symptoms reported -: Yes All other systems reviewed and negative Physical Exam - Vital signs Vitals: Temp Pulse Resp BP Pulse Ox 98.5 F 92 17 142/79 H 100 10/06/20 05:24 10/06/20 05:24 10/06/20 05:24 10/06/20 05:24 10/06/20 05:24 - General General appearance: Alert In distress: None - HEENT Head: Normocephalic, Atraumatic Eyes: Normal Pupils: PERRL Teeth diagram: 1 - Tender to palpation. There is some blackening at the distal end of it. Di ffuse gingival and mucosal swelling in that area. Lower lip and right cheek are also swollen. No trismus or submandibular swelling appreciated. Submandibular space is soft upon palpation. - Respiratory Respiratory status: No respiratory distress Chest status: Nontender Breath sounds: Normal Chest palpation: Normal - Cardiovascular Rhythm: Regular Heart sounds: Normal auscultation Murmur: No Friction rub: No Gallop: None auscultated - Abdominal Inspection: Normal Distension: No distension Bowel sounds: Normal Tenderness: Nontender - Abdomen soft Organomegaly: No organomegaly - Back Back: Normal, Nontender - Extremities General upper extremity: Normal inspection General lower extremity: Normal inspection. No: Edema - Neurological Neuro grossly intact: Yes Orientation: AAOx4 Александр Coma Scale Eye Opening: Spontaneous Александр Coma Scale Verbal: Oriented Александр Coma Scale Motor: Obeys Commands Александр Coma Scale Total: 15 - Psychological Associated symptoms: Normal affect, Normal mood - Skin Skin Temperature: Warm Skin Moisture: Dry Skin Color: Normal Course - Re-evaluation Re-evalutation: 10/06/20 07:42 Diagnosis, plan for treatment, medications and follow-up all discussed with patient. Patient states she is going to keep her appointment with her dentist on Friday October 09, 2020. Emergency signs and symptoms, reasons to return to the emergency department discussed with patient. - Vital Signs Vital signs: Temp Pulse Resp BP Pulse Ox 98.5 F 92 17 142/79 H 100 10/06/20 05:24 10/06/20 05:24 10/06/20 05:24 10/06/20 05:24 10/06/20 05:24 - Laboratory Results Critical Laboratory Results Reviewed: No Critical Results Attending or Supervising Physician who Reviewed Labs: TJ CORREA IV - Radiology Results Critical Radiology Results Reviewed: No Critical Results Attending or Supervising Physician who Reviewed Radiology: TJ CORREA IV Discharge - Discharge Clinical Impression: Dental abscess Condition: Stable Disposition: HOME, SELF-CARE Instructions: Clindamycin ([facility]), Oral Narcotic Medication ([facility]) Additional Instructions: Return to the Emergency Department without delay if any worse. Be certain to follow-up with your dentist on Wednesday, October 09, 2020 as scheduled. HOME CARE INSTRUCTIONS & INFORMATION: Thank you for choosing us for your medical needs. We hope you're satisfied with the care you received. After you leave, you must properly care for your problem and, at the same time, observe its progress. Any condition can change. Some illnesses can change rapidly over hours or days. If your condition worsens, return to the Emergency Department or see your physician promptly. ABOUT YOUR X-RAYS AND EKG'S: If you had an EKG or X-rays taken, they have been read by the Emergency Physician. The X-rays and EKG's will also be read by a Radiologist or [employer] Dam Repairer within 24 hours. If discrepancies are noted, you wi ll be notified by telephone. Please be certain the ED has a correct telephone number & address where you can be reached. Also, realize that some fractures or abnormalities do not show up on initial X-rays. If your symptoms continue, see your physician. ABOUT YOUR LABORATORY TEST: If you had laboratory tests, the results have been reviewed by the Emergency Physician. Some test results (for example cultures) may not be available for several days. You will be contacted if any test result shows you need additional treatment. Please be certain the ED has a correct telephone number and address where you can be reached. ABOUT YOUR MEDICATIONS: You will receive instructions on how to take your medicine on the prescription label you receive. Additional information may be provided by the Pharmacy. If you have questions afterwards, call the ED for clarification or further instructions. Some prescribed medications may cause drowsiness. Do not perform tasks such as driving a car or operating machinery without consulting your Pharmacist. If you feel you need a refill of pain medication, your condition will need re-evaluation. Please do not call for a refill of any medication. ABOUT YOUR SIGNATURE: Signature of this document acknowledges to followin. Understanding that you received emergency treatment and that you may be released before al medical problems are known or treated. Please be certain the ED has a correct phone number & address where you can be reached. 2. Acknowledgement that you will arrange for follow-up care as recommended. 3. Authorization for the Emergency Physician to provide information to your follow-up Physician in order to maximize your care. AT ANY TIME, IF YOUR SYMPTOMS CHANGE SIGNIFICANTLY OR WORSEN OR YOU DEVELOP NEW SYMPTOMS, RETURN TO THE EMERGENCY DEPARTMENT IMMEDIATELY FOR RE-EVALUATION. OUR GOAL IS TO PROVIDE EXCELLENT MEDICAL CARE! WE HOPE THAT WE HAVE MET YOUR EXPECTATIONS DURING YOUR EMERGENCY DEPARTMENT VISIT AND THAT YOU FEEL YOU HAVE RECEIVED EXCELLENT CARE! Prescriptions: Hydrocodone/Acetaminophen [[place] 5-325 mg Tablet] 1 tab PO Q6HP PRN #12 tablet PRN Reason: pain Ondansetron [Zofran Odt 4 mg Tablet] 4 mg PO Q8HP PRN #12 tab.rapdis PRN Reason: nausea Clindamycin HCl [Cleocin 150 mg Capsule] 450 mg PO TID 10 Days #90 capsule Forms: Return to Work Referrals: NINA RAPHAEL MD [Primary Care Provider] - Follow up as needed I personally performed the services described in the documentation, reviewed and edited the documentation which was dictated to the scribe in my presence, and it accurately records my words and actions.
[2020-10-06 09:12] VITALS: BP 136/72
== END 2020-10-06 09:12 | disposition home or self-care (01) ==
LOC: ER 05:10
DX: K04.7 Periapical abscess without sinus (principal); H92.02 Otalgia, left ear; R11.0 Nausea; R22.0 Localized swelling, mass and lump, head; K08.9 Disorder of teeth and supporting structures, unspecified; E78.00 Pure hypercholesterolemia, unspecified
CPT/HCPCS: 99284; 96375; 96365; J3490; J2270; J2405